=== PATIENT | female | born 1980 | race Caucasian/White ===

== ENCOUNTER 2024-10-03 10:23 | Outpatient (CLI) | payer BC, SELFPAY ==
--- NOTE | ~2024-10-03 | US_ITS ---
US breast RT limited 10/03/2024 11:08 Indication: Right breast nipple bleeding and pain. Open wound on nipple. Procedure: High-resolution Limited ultrasound of the right breast Comparison: No prior studies for comparison. Findings: Normal heterogeneous echotexture. There are mildly dilated ducts in the subareolar location . No discrete drainable fluid collection is identified to suggest abscess. Impression: 1: No abscess identified. Mildly dilated ducts, nonspecific. BI-RADS CATEGORY 2 - BENIGN FINDINGS Reviewed, dictated and finalized at location B. HEATER INSTALLER Impression: 1: No abscess identified. Mildly dilated ducts, nonspecific. BI-RADS CATEGORY 2 - BENIGN FINDINGS
== END 2024-10-03 10:24 | disposition home or self-care (01) ==
LOC: ANHIMG 10:29
PROVIDERS: PCP Physician Assistant Medical; Visit Provider Nurse Practitioner Obstetrics & Gynecology
DX: N60.41 Mammary duct ectasia of right breast (principal); N63.0 Unspecified lump in unspecified breast; L53.9 Erythematous condition, unspecified; N61.1 Abscess of the breast and nipple
CPT/HCPCS: 76642

== ENCOUNTER 2024-12-17 07:00 | Outpatient (NON) | payer BC, SELFPAY ==
--- OUTSIDE RECORDS SUMMARY | 2024-12-18 07:44 | XMS_ITS | Clinical Summary ---
Author Organization [facility] [address] Address [address] [place] [address] Care Team Providers Care Radiology Director Name Role Phone Douglas Flores MD Primary Care Provider [phone] Allergies No known active allergies Medications cetirizine (ZyrTEC) 10 mg tablet Take 10 mg by mouth daily Active buPROPion XL (WELLBUTRIN XL) 300 mg 24 hr tablet Take 300 mg by mouth daily Active fluticasone propionate (FLONASE) 50 mcg/actuation nasal spray Administer 1 spray into each nostril daily Active Active Problems Problem Noted Date Diagnosed Date Sensorineural hearing loss ( SNHL) of right ear with unrestricted hearing of left ear 09/09/2020 Surgical History Surgery Date Site/Laterality Comments KNEE SURGERY x 3 SECTION 08/29/2009 - 08/28/2010 CHOLECYSTECTOMY 08/29/2001 - 08/28/2002 HYSTERECTOMY 2010 Medical History Medical History Date Comments Sleep difficulties snoring HL (hearing loss) fluid in ears & discharge Family History Medical History Relation Name Comments Cancer Brother Cancer Maternal Grandfather Cancer Paternal Grandmother Relation Name Status Comments Brother Maternal Grandfather Paternal Grandmother Social History Tobacco Use Types Packs/Day Years Used Date Smoking Tobacco: Never Smokeless Tobacco: Never Alcohol Use Standard Drinks/Week Comments Not Currently 0 (1 standard drink = 0.6 oz pur e alcohol) Comments Unknown Sex and Gender Information Value Date Recorded Sex Assigned at Not on file Legal Sex Female 3:10 PM INTERNATIONAL TRADE MANAGER Gender Identity Not on file Sexual Orientation Not on file Obstetrics History Last Filed Vital Signs Vital Sign Reading Time Taken Comments Blood Pressure - - Pulse - - Temperature 36.6 C (97.8 F) 09/10/2020 8:27 AM INTERNATIONAL TRADE MANAGER Respiratory Rate - - Oxygen Saturation - - Inhaled Oxygen Concentration - - Weight 90.7 kg (200 lb) 09/10/2020 8:27 AM INTERNATIONAL TRADE MANAGER Height 167.6 cm (5' 6 ) 09/10/2020 8:27 AM INTERNATIONAL TRADE MANAGER Body Mass Index 32.28 09/10/2020 8:27 AM INTERNATIONAL TRADE MANAGER Plan of Treatment Not on file Insurance [facility] Care Teams Radiology Director Relationship Specialty Start Date End Date Douglas Flores MD [address] [place] [address] PCP - General Internal Medicine 09/02/20
--- OUTSIDE RECORDS SUMMARY | 2024-12-18 07:44 | XMS_ITS | Clinical Summary ---
Author Organization [facility] Address [address] [place] [address] Care Team Providers Care Monitor Car Operator Name Role Phone Stanislaw Sarmiento MD Primary Care Provider Unavailabl e Source Comments [facility],non-owned Affiliates and Associated Physician Practices is amultiple site organization consisting of ambulatory clinics and hospital sitesin [place], [place], [place] and [place]. This disclosure is being madepursuant to the Care Everywhere program and may not contain all information available regarding this patient. Last updated 18.[facility] Allergies No known active allergies Medications * Be aware that medications may not be up to date on this document. Alwaysverify current medications with the patient. ALPRAZolam (XANAX) 0.25 MG tabletIndicatio ns:Acute stress reaction Take 1 Tab by mouth 2 times daily as needed for Anxiety. 15 Tab 0 07/25/2012 Active neomycin-polymy mark-dexameth (MAXITROL) ophthalmic suspension Instill 1 Drop into both eyes 3 times daily. 5 mL 0 09/08/2012 Active citalopram (CELEXA) 40 MG tablet Take 1 Tab by mouth once daily. 40 Tab 6 05/28/2013 Active Active Problems Problem Noted Date Diagnosed Date Lumbar disc herniation with radiculopathy Depression Migraines Irritable bowel syndrome Allergic rhinitis, seasonal Social History Tobacco Use Types Packs/Day Years Used Date Smoking Tobacco: Never Smokeless Tobacco: Never Alcohol Use Standard Drinks/Week Comments Yes 0 (1 standard drink = 0.6 oz pur e alcohol) ocassionally Comments Unknown Sex and Gender Information Value Date Recorded Sex Assigned at Not on file Legal Sex Female 7:02 AM PBX INSPECTOR Gender Identity Not on file Sexual Orientation Not on file Last Filed Vital Signs Vital Sign Reading Time Taken Comments Blood Pressure 112/70 07/25/2012 11:48 AM PBX INSPECTOR Pulse 70 07/25/2012 11:48 AM PBX INSPECTOR Temperature - - Respiratory Rate 14 07/25/2012 11:48 AM PBX INSPECTOR Oxygen Saturation - - Inhaled Oxygen Concentration - - Weight 81.2 kg (179 lb) 07/25/2012 11:48 AM PBX INSPECTOR Height 167.6 cm (5' 6 ) 07/25/2012 11:48 AM PBX INSPECTOR Body Mass Index 28.89 07/25/2012 11:48 AM PBX INSPECTOR Plan of Treatment Health Maintenance Due Date Last Done Comments MAMMOGRAM 1981 HIV SCREENING 1996 HEPATITIS C SCREENING 05/15/1999 DTAP/TDAP/TD VACCINES (1 - Tdap) 2000 HEPATITIS B VACCINE (1 of 3 - 19+ 3-dose series) 2000 LIPID TESTING 09/15/2017 09/15/2012, 05/28/2009 COVID-19 VACCINE ( - 2023-2 5 season) 2024 DEPRESSION SCREENING 08/29/2024 INFLUENZA VACCINE (Season Ended) 2025 ZOSTER VACCINE (1 of 2) 2031 HIB VACCINE Aged Out No longer eligi ble based on patient's age to complete this topic HPV VACCINE Aged Out No longer eligi ble based on patient's age to complete this topic MENINGOCOCCAL (Group B) VACCINE SHARED DECISION-MAKING Aged Out No longer eligible based on patient's age to complete this topic MENINGOCOCCAL GROUPS A/C/Y/W VACCINE Aged Out No longer eligible b ased on patient's age to complete this topic PNEUMOCOCCAL VACCINE Aged Out No long er eligible based on patient's age to complete this topic Procedures Procedure Name Priority Date/Time Associated Diagnosis Comments LIPID PROFILE Routine 09/15/2012 8:51 AM PBX INSPECTOR Screening for lipoid disorders from Last 3 Months or Most Recently Relevant to Health Maintenance Results * LIPID PROFILE (09/15/2012 8:51 AM PBX INSPECTOR) Pathologist [facility] Cholesterol 161 125 - 200 mg/dL [facility] Comment: Test Performed at: [facility] [address] [place] [address] ROLANDO CLIFFORD DO,MPH HDL Cholesterol 62 > OR = 46 mg/dL [facility] Triglycerides 51 <150 mg/dL [facility] LDL Calculated 89 <130 mg/dL (calc) [facility] Comment: Desirable range <100 mg/dL for patients with CHD or diabetes and <70 mg/dL for diabetic patients with known heart disease. CHOL/HDLC RATIO 2.6 < OR = 5.0 (calc) [facility] Non HDL Cholesterol 99 mg/dL (calc) [facility] Comment: Target for non-HDL cholesterol is 30 mg/dL higher than LDL cholesterol target. Blood specimen (specimen) BLOOD SPECIMEN / Unknown 09/15/2012 8:51 AM PBX INSPECTOR 09/15/2012 8:51 AM PBX INSPECTOR Stanislaw Sarmiento MD LAB - CHEMISTRY ORDERABLES Final Result Performing Organization Address City/State/[facility] Co de Phone Number [facility] [address] [place] [address] from Last 3 Months or Most Recently Relevant to Health Maintenance Insurance Care Teams Monitor Car Operator Relationship Specialty Start Date End Date Stanislaw Sarmiento MD Updated address needed PCP - General 09/30/09
--- OUTSIDE RECORDS SUMMARY | 2024-12-18 07:44 | XMS_ITS | Clinical Summary ---
Author Organization [facility] Address [address] [place] [address] Phone Care Team Providers Care Camera Supervisor Name Role Phone Unavailable Primary Care Provider Unavailabl e Allergies No known active allergies Medications vit-iron fumarate-fa () 28-0.8 mg Oral Tab Take 1 Tab by mouth daily. Active cetirizine (ZYRTEC) 5 mg Oral tablet Take 5 mg by mouth daily. Active oxyCODONE-acetam inophen (PERCOCET) 5-325 mg Oral tablet Take 1 Tab by mouth every 4 hours as needed. 30 Tab 0 07/23/2010 Active ferrous sulfate (FEOSOL) 325 mg (65 mg Iron) Oral tablet Take 1 Tab by mouth 3 times daily. 90 Tab 2 07/23/2010 Active ibuprofen (MOTRIN) 600 mg Oral tablet Take 1 Tab by mouth every 6 hours as needed for Pain. 20 Tab 0 07/23/2010 Active Active Problems Problem Noted Date Diagnosed Date Protein calorie malnutrition 07/20/2010 Leukocytosis 07/20/2010 D.I.C. (disseminated intravascular coagulation) 07/19/2010 Hemorrhage after delivery of fetus 07/19/2010 Hypovolemia 07/19/2010 Chyst 07/1807/18/2010 Resolved Problems Problem Noted Date Diagnosed Date Resolved Date C section 07/18; PPH - 2uPRBC 07/18/2010 07/18/2010 MIL, pit, GBS neg 07/17/2010 07/18/2010 Immunizations Immunization Administration Dates Next Due (M-M-R II/PRIORIX)(12 MO UP) MEASLES, MUMPS AND RUBELLA VIRUS VACCINE, 0.5 ML IM/SUBCUT 07/19/2010,10/16/1999 Hepatitis B Vaccine 04/07/2001,08/27/2000,1999 Family History Relation Name Status Comments Father Alive Mother Alive Social History Tobacco Use Types Packs/Day Years Used Date Smoking Tobacco: Never Alcohol Use Standard Drinks/Week Comments No 0 (1 standard drink = 0.6 oz pur e alcohol) Comments Unknown Sex and Gender Information Value Date Recorded Sex Assigned at Not on file Legal Sex Female 5:57 AM CARPENTER GENERAL Gender Identity Not on file Sexual Orientation Not on file Last Filed Vital Signs Vital Sign Reading Time Taken Comments Blood Pressure 110/74 07/23/2010 12:00 PM CARPENTER GENERAL Pulse 74 07/23/2010 12:00 PM CARPENTER GENERAL Temperature 36.2 C (97.1 F) 07/23/2010 12:00 PM CARPENTER GENERAL Respiratory Rate 16 07/23/2010 12:00 PM CARPENTER GENERAL Oxygen Saturation 98% 07/23/2010 8:00 AM CARPENTER GENERAL Inhaled Oxygen Concentration - - Weight 96.2 kg (212 lb) 07/17/2010 10:10 PM CARPENTER GENERAL Height 167.6 cm (5' 6 ) 07/17/2010 10:10 PM CARPENTER GENERAL Body Mass Index 34.22 07/17/2010 10:10 PM CARPENTER GENERAL Plan of Treatment Health Maintenance Due Date Last Done Comments DTAP/TDAP/TD VACCINES (1 - Tdap) 2000 BREAST CANCER SCREENING 2021 INFLUENZA VACCINE (#1) 2024 HEPATITIS B VACCINES Completed 04/07/2001, 08/27/2000, 10/16/1999 HPV VACCINES Aged Out No longer eligi ble based on patient's age to complete this topic Insurance [place]ICAID [place] Advance Directives For more information, please contact: [phone] * Full Code (Latest Code Status on File) Date Activated Date Inactivated Comments 07/19/2010 7:49 AM 07/23/2010 4:25 PM * Full Code Date Activated Date Inactivated Comments 07/19/2010 7:49 AM 07/19/2010 7:49 AM * Full Code Date Activated Date Inactivated Comments 07/18/2010 6:20 PM 07/19/2010 7:49 AM * Full Code Date Activated Date Inactivated Comments 07/17/2010 10:49 PM 07/18/2010 6:20 PM
--- OUTSIDE RECORDS SUMMARY | 2024-12-18 07:44 | XMS_ITS | Referral Summary ---
Author Organization [facility] [address] Address [address] [place] [address] Care Team Providers Care Director Of Sales Name Role Phone Douglas Flores MD Primary Care Provider [phone] Allergies No known active allergies Medications cetirizine [...] with unrestricted hearing of left ear 09/09/2020 Social History Tobacco Use Types Packs/Day Years Used Date Smoking Tobacco: Never Smokeless Tobacco: Never Alcohol Use Standard Drinks/Week Comments Not Currently 0 (1 standard drink = 0.6 oz pur e alcohol) Comments Unknown Sex and Gender Information Value Date Recorded Sex Assigned at Not on file Legal Sex Female 3:10 PM SUPERVISOR PATCHING Gender Identity Not on file Sexual Orientation Not on file Last Filed Vital Signs Vital Sign Reading Time Taken Comments Blood Pressure - - Pulse - - Temperature 36.6 C (97.8 F) 09/10/2020 8:27 AM SUPERVISOR PATCHING Respiratory Rate - - Oxygen Saturation - - Inhaled Oxygen Concentration - - Weight 90.7 kg (200 lb) 09/10/2020 8:27 AM SUPERVISOR PATCHING Height 167.6 cm (5' 6 ) 09/10/2020 8:27 AM SUPERVISOR PATCHING Body Mass Index 32.28 09/10/2020 8:27 AM SUPERVISOR PATCHING Plan of Treatment Not on file Insurance [facility] Care Teams Director Of Sales Relationship Specialty Start Date End Date Douglas Flores MD [address] [place] [address] PCP - General Internal Medicine 09/02/20
--- OUTSIDE RECORDS SUMMARY | 2024-12-18 07:44 | XMS_ITS | Clinical Summary ---
Author Organization [facility] Address [address] [place] [address] Care Team Providers Care Lube Worker Name Role Phone Rosalva Domingo Primary Care Provider [phone] Allergies No known active allergies Medications St Sorensen Wort 300 MG Cap Take 1 capsule by mouth 3 (three) times daily. Active cetirizine 10 MG tablet Take 10 mg by mouth daily. Active oxyCODONE-aceta minophen 10-325 MG tablet TK 1-2 TS PO Q 6 H PRN 0 01/17/2019 Active Active Problems Problem Noted Date Diagnosed Date Allergic rhinitis, seasonal 12/25/2018 Depression 12/25/2018 Irritable bowel syndrome 12/25/2018 Lumbar disc herniation with radiculopathy 2018 Migraines 12/25/2018 Family History Medical History Relation Comments Prostate Cancer Brother Colon Cancer Maternal Grandfather BRCA2 Positive Mother Uterine Cancer Paternal Grandmother Breast Cancer Neg Hx Relation Status Comments Brother Alive Maternal Grandfather Mother Paternal Grandmother Social History Tobacco Use Types Packs/Day Years Used Date Smoking Tobacco: Never Smokeless Tobacco: Never Alcohol Use Standard Drinks/Week Comments Yes 0 (1 standard drink = 0.6 oz pur e alcohol) social AUDIT-C Answer Date Recorded Frequency of Alcohol Consumption Monthly or less 12/25/2018 Average Number of Drinks 1 or 2 019 Frequency of Binge Drinking Never 11/28 Comments Unknown Sex and Gender Information Value Date Recorded Sex Assigned at Female 12/25/2018 4:21 PM CDT Legal Sex Female 5:06 PM CDT Gender Identity Female 12/25/2018 4:21 PM CDT Sexual Orientation Straight 12/25/2018 4: 21 PM CDT Last Filed Vital Signs Vital Sign Reading Time Taken Comments Blood Pressure 120/64 03/23/2019 10:41 AM CDT Pulse - - Temperature - - Respiratory Rate - - Oxygen Saturation - - Inhaled Oxygen Concentration - - Weight 93.4 kg (206 lb) 03/23/2019 10:41 AM CDT Height 167.4 cm (5' 5.9 ) 03/23/2019 10:41 AM CD T Body Mass Index 33.35 03/23/2019 10:41 AM CDT Plan of Treatment Health Maintenance Due Date Last Done Comments Annual Physical 1984 Hepatitis C 1999 DTaP, Tdap and Td Vaccines (1 - Tdap) 2000 COVID-19 Vaccine ( season) 2024 Mammogram Screening 04/10/2026 04/10/2024, 03/30/2023, 02/22/2023, Additional history exists Hepatitis B Vaccines Completed 04/07/2001, 08/27/2000, 10/16/1999 HPV Vaccines Aged Out No longer eligi ble based on patient's age to complete this topic Meningococcal B Vaccine Aged Out No l onger eligible based on patient's age to complete this topic Meningococcal Vaccine Aged Out No michelle rosita eligible based on patient's age to complete this topic Pneumococcal Vaccine: Pediatrics (0 to 5 Years) and At-Risk Patients (6 to 49 Years) Aged Out No longer eligible based on patient's age to complete this topic RSV Immunizations Under 20 Months Aged Out No longer eligible based on patient's age to complete this topic Procedures Procedure Name Priority Date/Time Associated Diagnosis Comments MG SCREENING W VERO RENEE DIGI Routine 04/10/2024 1:53 PM CDT Encounter for screening mammogram for malignant neoplasm of breast from Last 3 Months or Most Recently Relevant to Health Maintenance Results * MG SCREENING W VERO RENEE DIGI (04/10/2024 1:53 PM CDT) Anatomical Region Laterality Modality Breast Bilateral Mammography 04/10/2024 5:55 PM CDT Impressions 04/11/2024 7:22 AM CDT ===== IMPRESSION: ===== 1. Stable mammographic appearance with no new findings to suggest malignancy in either breast. Assessment: ACR BI-RADS 2 - BENIGN FINDING(S) Recommendation: 1:Routine Screening Bilateral Comments: Ordered By: JAYJAY MARINA Interpreted By: Adamaris Merrill, 04/10/2024 5:55 PM Narrative 04/11/2024 7:22 AM CDT EXAMINATION: Digital bilateral screening mammogram with 3-D tomosynthesis EXAM DATE/TIME: 04/10/2024 1:22 PM REASON FOR EXAM: Routine screening Mother is BRCA2 positive COMPARISON: 11/19/2021.. 02/22/2023 Technique: Digital screening mammography of both breasts was performed in addition to 3-D Tomosynthesis technique. This study was read with the assistance of a computer-aided detection system. Tissue density: The breast tissue is heterogeneously dense, which may obscure small masses. Findings: There is no new focal asymmetry, dominant mass lesion, area of skin thickening, or cluster of suspicious appearing calcifications in either breast to suggest malignancy. Jayjay Marina MD MAMMO Final Result from Last 3 Months or Most Recently Relevant to Health Maintenance Insurance Care Teams Lube Worker Relationship Specialty Start Date End Date Rosalva Domingo PA [address] [place] [address] PCP - General PHYSICIAN MANAGER OF [facility]IED HE[facility] 02/22/23
== END 2024-12-17 07:01 | disposition home or self-care (01) ==
LOC: ANHLAB 12-18 07:42
PROVIDERS: Visit Provider Surgery
DX: C50.011 Malignant neoplasm of nipple and areola, right female breast (principal); N64.9 Disorder of breast, unspecified; N61.1 Abscess of the breast and nipple; N63.0 Unspecified lump in unspecified breast
CPT/HCPCS: 88305; 88342; 88360

== ENCOUNTER 2024-12-20 14:06 | Outpatient (CLI) | payer BC, SELFPAY ==
--- NOTE | ~2024-12-20 | MMUS_ITS ---
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 TECHNIQUE: Additional 3-D tomosynthesis images of the breasts were performed and synthetic 2-D images were generated. CAD analysis was submitted and interpreted. High resolution bilateral complete breas t ultrasound was performed. COMPARISON: Comparison to multiple prior studies sequentially, with oldest reviewed study dated 09/2022. BREAST PARENCHYMAL COMPOSITION: Dense: The breasts are extremely dense, which lowers the sensitivity of mammography. FINDINGS: MAMMOGRAPHIC FINDINGS: There are dilated right subareolar ducts. There are multiple scattered right breast calcifications in addition, there is a cluster of pleomorphic calcifications in the lower central aspect of the right breast, anterior third. The left breast is stable. No suspicious masses, calcifications or architectu ral distortion to suggest malignancy. ULTRASOUND: Complete bilateral breast ultrasound including all 4 quadrants of both breast in the subareolar locat ions: Right breast: There are multiple cysts of the right breast. There are prominent ducts of the subareol ar location the right breast. At 6:00, 2 cm from the nipple there is an antiparallel irregular shaped hypoechoic 6 mm mass measuring 6 x 5 x 4 mm. Left breast: Normal heterogeneous echotexture without focal solid or cystic mass. IMPRESSION: 1. Suspicious 6 mm right breast mass at 6:00, 2 cm from the nipple. Suspicious cluster right breast c alcifications in the lower central right breast, anterior third. 2. Ultrasound-guided biopsy of right breast mass at 6:00, 2 cm from the nipple recommended. Stereotac tic right breast biopsy for clustered calcifications are recommended. BI-RADS category 4, suspicious findings. Reviewed, dictated and finalized at location A. IMPRESSION: 1. Suspicious 6 mm right breast mass at 6:00, 2 cm from the nipple. Suspicious cluster right breast calcifications in the lower central right breast, anterior third. 2. Ultrasound-guided biopsy of right breast mass at 6:00, 2 cm from the nipple recommended. Stereotactic right breast biopsy for clustered calcifications are recommended. BI-RADS category 4, suspicious findings.
--- OUTSIDE RECORDS SUMMARY | 2024-12-20 15:15 | XMS_ITS | Referral Summary ---
Author Organization [facility] [address] Address [address] [place] [address] Care Team Providers Care Manufacturing Process Engineer Name Role Phone Douglas Flores MD Primary Care Provider [phone] Allergies No known active allergies Medications cetirizine [...] on file Legal Sex Female 3:10 PM DIGESTION OPERATOR Gender Identity Not on file Sexual Orientation Not on file Last Filed Vital Signs Vital Sign Reading Time Taken Comments Blood Pressure - - Pulse - - Temperature 36.6 C (97.8 F) 09/10/2020 8:27 AM DIGESTION OPERATOR Respiratory Rate - - Oxygen Saturation - - Inhaled Oxygen Concentration - - Weight 90.7 kg (200 lb) 09/10/2020 8:27 AM DIGESTION OPERATOR Height 167.6 cm (5' 6 ) 09/10/2020 8:27 AM DIGESTION OPERATOR Body Mass Index 32.28 09/10/2020 8:27 AM DIGESTION OPERATOR Plan of Treatment Not on file Insurance [facility] Care Teams Manufacturing Process Engineer Relationship Specialty Start Date End Date Douglas Flores MD [address] [place] [address] PCP - General Internal Medicine 09/02/20
--- OUTSIDE RECORDS SUMMARY | 2024-12-20 15:15 | XMS_ITS | Clinical Summary ---
Author Organization [facility] Address [address] [place] [address] Phone Care Team Providers Care Coastal/Harbor Defense Officer Name Role Phone Unavailable Primary Care Provider [...] on file Legal Sex Female 5:57 AM FORENSIC SPECIALIST Gender Identity Not on file Sexual Orientation Not on file Last Filed Vital Signs Vital Sign Reading Time Taken Comments Blood Pressure 110/74 07/23/2010 12:00 PM FORENSIC SPECIALIST Pulse 74 07/23/2010 12:00 PM FORENSIC SPECIALIST Temperature 36.2 C (97.1 F) 07/23/2010 12:00 PM FORENSIC SPECIALIST Respiratory Rate 16 07/23/2010 12:00 PM FORENSIC SPECIALIST Oxygen Saturation 98% 07/23/2010 8:00 AM FORENSIC SPECIALIST Inhaled Oxygen Concentration - - Weight 96.2 kg (212 lb) 07/17/2010 10:10 PM FORENSIC SPECIALIST Height 167.6 cm (5' 6 ) 07/17/2010 10:10 PM FORENSIC SPECIALIST Body Mass Index 34.22 07/17/2010 10:10 PM FORENSIC SPECIALIST Plan of Treatment Health Maintenance Due Date Last Done Comments DTAP/TDAP/TD VACCINES (1 - Tdap) 2000 BREAST CANCER SCREENING 2021 INFLUENZA VACCINE (#1) 2024 HEPATITIS B VACCINES Completed 04/07/2001, 08/27/2000, 10/16/1999 HPV VACCINES Aged Out No longer eligi ble based on patient's age to complete this topic Insurance MEDICAID [place] Advance Directives For more information, please contact: [phone] * Full Code (Latest Code Status on [...]
--- OUTSIDE RECORDS SUMMARY | 2024-12-20 15:15 | XMS_ITS | Clinical Summary ---
Author Organization [facility] Address [address] [place] [address] Care Team Providers Care Newborn Photographer Name Role Phone Rosalva Domingo Primary Care Provider [phone] Allergies No known active allergies Medications St [...] Relevant to Health Maintenance Insurance Care Teams Newborn Photographer Relationship Specialty Start Date End Date Rosalva Domingo PA [address] [place] [address] PCP - General PHYSICIAN ECONOMIC SPECIALIST 02/22/23
--- OUTSIDE RECORDS SUMMARY | 2024-12-20 15:15 | XMS_ITS | Clinical Summary ---
Author Organization [facility] [address] Address [address] [place] [address] Care Team Providers Care Soaking Room Operator Name Role Phone Douglas Flores MD Primary Care Provider [phone] Allergies No known active allergies Medications cetirizine [...] on file Legal Sex Female 3:10 PM CONFECTIONERY MAKER Gender Identity Not on file Sexual Orientation Not on file Obstetrics History Last Filed Vital Signs Vital Sign Reading Time Taken Comments Blood Pressure - - Pulse - - Temperature 36.6 C (97.8 F) 09/10/2020 8:27 AM CONFECTIONERY MAKER Respiratory Rate - - Oxygen Saturation - - Inhaled Oxygen Concentration - - Weight 90.7 kg (200 lb) 09/10/2020 8:27 AM CONFECTIONERY MAKER Height 167.6 cm (5' 6 ) 09/10/2020 8:27 AM CONFECTIONERY MAKER Body Mass Index 32.28 09/10/2020 8:27 AM CONFECTIONERY MAKER Plan of Treatment Not on file Insurance [facility] Care Teams Soaking Room Operator Relationship Specialty Start Date End Date Douglas Flores MD [address] [place] [address] PCP - General Internal Medicine 09/02/20
--- OUTSIDE RECORDS SUMMARY | 2024-12-20 15:15 | XMS_ITS | Clinical Summary ---
Author Organization [facility] Address [address] [place] [address] Care Team Providers Care Oracle Erp Architect Name Role Phone Stanislaw Sarmiento MD Primary Care Provider Unavailabl e Source Comments [facility],non-owned Affiliates and Associated Physician Practices is amultiple site organization consisting of ambulatory clinics and hospital sitesin [place], [place], [place] and [place]. This disclosure is being madepursuant to the Care Everywhere program and may not contain all information available regarding this patient. Last updated 18.[facility] Allergies No known active allergies Medications * [...] on file Legal Sex Female 7:02 AM HOUSING INSTALLER Gender Identity Not on file Sexual Orientation Not on file Last Filed Vital Signs Vital Sign Reading Time Taken Comments Blood Pressure 112/70 07/25/2012 11:48 AM HOUSING INSTALLER Pulse 70 07/25/2012 11:48 AM HOUSING INSTALLER Temperature - - Respiratory Rate 14 07/25/2012 11:48 AM HOUSING INSTALLER Oxygen Saturation - - Inhaled Oxygen Concentration - - Weight 81.2 kg (179 lb) 07/25/2012 11:48 AM HOUSING INSTALLER Height 167.6 cm (5' 6 ) 07/25/2012 11:48 AM HOUSING INSTALLER Body Mass Index 28.89 07/25/2012 11:48 AM HOUSING INSTALLER Plan of Treatment Health Maintenance Due Date [...] Comments LIPID PROFILE Routine 09/15/2012 8:51 AM HOUSING INSTALLER Screening for lipoid disorders from Last 3 Months or Most Recently Relevant to Health Maintenance Results * LIPID PROFILE (09/15/2012 8:51 AM HOUSING INSTALLER) Pathologist [facility] Cholesterol 161 125 - 200 mg/dL [facility] Comment: Test Performed at: [facility] [address] [place] [address] ROLANDO CLIFFORD DO,MPH HDL Cholesterol 62 > [...] BLOOD SPECIMEN / Unknown 09/15/2012 8:51 AM HOUSING INSTALLER 09/15/2012 8:51 AM HOUSING INSTALLER Stanislaw Sarmiento MD LAB - CHEMISTRY ORDERABLES Final Result Performing Organization Address City/State/[facility] Co de Phone Number [facility] [address] [place] [address] from Last 3 Months or Most Recently Relevant to Health Maintenance Insurance Care Teams Oracle Erp Architect Relationship Specialty Start Date End Date Stanislaw Sarmiento MD Updated address needed PCP - General 09/30/09
== END 2024-12-20 14:07 | disposition home or self-care (01) ==
PROVIDERS: Visit Provider Surgery
DX: C50.011 Malignant neoplasm of nipple and areola, right female breast (principal); N61.1 Abscess of the breast and nipple
CPT/HCPCS: 76641; 77062; 77066; G0279

== ENCOUNTER 2025-01-04 08:37 | Outpatient (CLI) | payer BC, SELFPAY ==
--- OUTSIDE RECORDS SUMMARY | 2024-12-29 14:14 | XMS_ITS | Clinical Summary ---
Author Organization [facility] [address] Address [address] [place] [address] Care Team Providers Care Owner Oral Surgeon Name Role Phone Douglas Flores MD Primary Care Provider [phone] Allergies No known active allergies Medications cetirizine [...] on file Legal Sex Female 3:10 PM RUBBISH COLLECTION SUPERVISOR Gender Identity Not on file Sexual Orientation Not on file Obstetrics History Last Filed Vital Signs Vital Sign Reading Time Taken Comments Blood Pressure - - Pulse - - Temperature 36.6 C (97.8 F) 09/10/2020 8:27 AM RUBBISH COLLECTION SUPERVISOR Respiratory Rate - - Oxygen Saturation - - Inhaled Oxygen Concentration - - Weight 90.7 kg (200 lb) 09/10/2020 8:27 AM RUBBISH COLLECTION SUPERVISOR Height 167.6 cm (5' 6 ) 09/10/2020 8:27 AM RUBBISH COLLECTION SUPERVISOR Body Mass Index 32.28 09/10/2020 8:27 AM RUBBISH COLLECTION SUPERVISOR Plan of Treatment Not on file Insurance BLUE [facility] BL CHOICE [place]F PPO [place] Care Teams Owner Oral Surgeon Relationship Specialty Start Date End Date Douglas Flores MD [address] [place] [address] PCP - General Internal Medicine 09/02/20
--- OUTSIDE RECORDS SUMMARY | 2024-12-29 14:14 | XMS_ITS | Clinical Summary ---
Author Organization [facility] Address [address] [place] [address] Phone Care Team Providers Care Bottom Cager Name Role Phone Unavailable Primary Care Provider [...] on file Legal Sex Female 5:57 AM FUSING MACHINE TENDER Gender Identity Not on file Sexual Orientation Not on file Last Filed Vital Signs Vital Sign Reading Time Taken Comments Blood Pressure 110/74 07/23/2010 12:00 PM FUSING MACHINE TENDER Pulse 74 07/23/2010 12:00 PM FUSING MACHINE TENDER Temperature 36.2 C (97.1 F) 07/23/2010 12:00 PM FUSING MACHINE TENDER Respiratory Rate 16 07/23/2010 12:00 PM FUSING MACHINE TENDER Oxygen Saturation 98% 07/23/2010 8:00 AM FUSING MACHINE TENDER Inhaled Oxygen Concentration - - Weight 96.2 kg (212 lb) 07/17/2010 10:10 PM FUSING MACHINE TENDER Height 167.6 cm (5' 6 ) 07/17/2010 10:10 PM FUSING MACHINE TENDER Body Mass Index 34.22 07/17/2010 10:10 PM FUSING MACHINE TENDER Plan of Treatment Upcoming Encounters Date Type Department Care Team (Late st Contact Info) Description 01/16/2025 3:00 PM CDT Office Visit [facility]3] Oncology and Hematology - [place] [address] [place] [address] [facility] [address] [place] [address] [place] [address] [place] [address] [address] [place] [address] Health Maintenance Due Date Last Done Comments DTAP/TDAP/TD VACCINES (1 - Tdap) 2000 BREAST CANCER SCREENING 2021 INFLUENZA VACCINE (#1) 2024 HEPATITIS B VACCINES Completed 04/07/2001, 08/27/2000, 10/16/1999 HPV VACCINES Aged Out No longer eligi ble based on patient's age to complete this topic Insurance [facility] [id number] [place]ID [place] Advance Directives For more information, please contact: [phone] * Full Code (Latest Code Status on [...]
--- OUTSIDE RECORDS SUMMARY | 2024-12-29 14:14 | XMS_ITS | Referral Summary ---
Author Organization [facility] [address] [employer] Address [address] [place] [address] Care Team Providers Care Armored Car Messenger Name Role Phone Douglas Flores MD Primary Care Provider [phone] Allergies No known active allergies Medications cetirizine [...] on file Legal Sex Female 3:10 PM SOFTWARE MAINTENANCE ENGINEER Gender Identity Not on file Sexual Orientation Not on file Last Filed Vital Signs Vital Sign Reading Time Taken Comments Blood Pressure - - Pulse - - Temperature 36.6 C (97.8 F) 09/10/2020 8:27 AM SOFTWARE MAINTENANCE ENGINEER Respiratory Rate - - Oxygen Saturation - - Inhaled Oxygen Concentration - - Weight 90.7 kg (200 lb) 09/10/2020 8:27 AM SOFTWARE MAINTENANCE ENGINEER Height 167.6 cm (5' 6 ) 09/10/2020 8:27 AM SOFTWARE MAINTENANCE ENGINEER Body Mass Index 32.28 09/10/2020 8:27 AM SOFTWARE MAINTENANCE ENGINEER Plan of Treatment Not on file Insurance [place] [employer] [place] Care Teams Armored Car Messenger Relationship Specialty Start Date End Date Douglas Flores MD [address] [place] [address] PCP - General Internal Medicine 09/02/20
--- OUTSIDE RECORDS SUMMARY | 2024-12-29 14:14 | XMS_ITS | Clinical Summary ---
Author Organization [facility] Address [address] [place] [address] Care Team Providers Care Auto Suspension And Steering Mechanic Name Role Phone Stanislaw Sarmiento MD Primary Care Provider Unavailabl e Source Comments [facility],non-owned Affiliates and Associated Physician Practices is amultiple site organization consisting of ambulatory clinics and hospital sitesin [place], [place], [place] and [place]. This disclosure is being madepursuant to the Care Everywhere program and may not contain all information available regarding this patient. Last updated 18.[facility] Allergies No known active allergies Medications * [...] on file Legal Sex Female 7:02 AM CLIENT DEVELOPMENT CONSULTANT Gender Identity Not on file Sexual Orientation Not on file Last Filed Vital Signs Vital Sign Reading Time Taken Comments Blood Pressure 112/70 07/25/2012 11:48 AM CLIENT DEVELOPMENT CONSULTANT Pulse 70 07/25/2012 11:48 AM CLIENT DEVELOPMENT CONSULTANT Temperature - - Respiratory Rate 14 07/25/2012 11:48 AM CLIENT DEVELOPMENT CONSULTANT Oxygen Saturation - - Inhaled Oxygen Concentration - - Weight 81.2 kg (179 lb) 07/25/2012 11:48 AM CLIENT DEVELOPMENT CONSULTANT Height 167.6 cm (5' 6 ) 07/25/2012 11:48 AM CLIENT DEVELOPMENT CONSULTANT Body Mass Index 28.89 07/25/2012 11:48 AM CLIENT DEVELOPMENT CONSULTANT Plan of Treatment Health Maintenance Due Date Last Done Comments MAMMOGRAM 1981 PAP SMEAR 1981 HIV SCREENING 1996 HEPATITIS C SCREENING [...] Comments LIPID PROFILE Routine 09/15/2012 8:51 AM CLIENT DEVELOPMENT CONSULTANT Screening for lipoid disorders from Last 3 Months or Most Recently Relevant to Health Maintenance Results * LIPID PROFILE (09/15/2012 8:51 AM CLIENT DEVELOPMENT CONSULTANT) Cholesterol 161 125 - 200 mg/dL [facility] Comment: Test Performed at: [employer] [facility] [address] [place] [address] ROLANDO CLIFFORD DO,MPH HDL Cholesterol 62 > [...] BLOOD SPECIMEN / Unknown 09/15/2012 8:51 AM CLIENT DEVELOPMENT CONSULTANT 09/15/2012 8:51 AM CLIENT DEVELOPMENT CONSULTANT us Stanislaw Sarmiento MD LAB - CHEMISTRY ORDERABLES Final Result Performing Organization Address City/State/[facility] Co de Phone Number [facility] [[email or web address]] [address] [place] [address] from Last 3 Months or Most Recently Relevant to Health Maintenance Insurance [facility] SELF PAY NO INSURANCE Member Subscriber Plan / Payer (Ef fective for All Dates) Name:Gisele Chandler Member ID:Not on file Relation to Subscriber:Not on file Name:GISELE CHANDLER Subscriber ID:Not on file (Home) Address: [address] [place] [address] Payer ID:Not on file Group ID:Not on file Type:Self Pay Address: [place], [place] Care Teams Auto Suspension And Steering Mechanic Relationship Specialty Start Date End Date Stanislaw Sarmiento MD Updated address needed PCP - General 09/30/09
--- OUTSIDE RECORDS SUMMARY | 2024-12-29 14:14 | XMS_ITS | Clinical Summary ---
Author Organization [facility] Address [address] [place] [address] Care Team Providers Care Personal Development Coach Name Role Phone Rosalva Domingo Primary Care Provider [phone] Allergies No known active allergies Medications St [...] Relevant to Health Maintenance Insurance Care Teams Personal Development Coach Relationship Specialty Start Date End Date Rosalva Domingo PA [address] [place] [id number] PCP - General PHYSICIAN HEALTH EDUCATION ASSISTANT 02/22/23
--- NOTE | ~2025-01-04 | MR_ITS ---
MR breast BI wo/w con 01/04/2025 10:51 CDT INDICATION: Known right breast cancer. TECHNIQUE: MRI of the breasts perform using standard protocol pre-and post IV contrast with the follo wing sequences: Axial T2 STIR, axial T1, axial vibrant T1 with fat suppression precontrast and multip hasic postcontrast. 18 cc MultiHance administered intravenously. COMPARISON: Comparison to multiple prior studies sequentially, with oldest reviewed study dated 09/2022. FINDINGS: Precontrast sequences demonstrate pathologic right axillary lymph nodes clustered together. There is mild background parenchymal enhancement. Postcontrast sequences demonstrate an irregular sh aped mass in the lower inner quadrant of the right breast measuring 2.1 x 1.3 x 0.87 cm with rapid wa shout enhancement which is heterogeneous. There is a small area of rapid washout enhancement in the l ower central aspect of the right breast near the dominant mass measuring 1.6 x 1.7 x 0.6 cm with irre gular margins and heterogeneous internal enhancement. There is a conglomeration of lymph nodes in the right axilla measuring 4.9 x 3 x 1.8 cm with pathologic appearance and loss of normal fatty hilum, c onsistent with metastatic disease. LEFT BREAST: No signal abnormalities on precontrast sequences. There is mild background parenchymal enhancement. No enhancing lesions following contrast administration. No areas of enhancement meeti ng threshold criteria on CAD analysis. No evidence of signal abnormalities in the axillary or inter nal mammary node distributions. IMPRESSION: 1: Right breast: Multiple irregular shaped masses involving the lower inner and lower central aspect of the right breast both with abnormal heterogeneous rapid washout enhancement, consistent with mult ifocal breast cancer with metastatic disease to right axillary lymph nodes. BI-RADS category 6- Known biopsy proven malignancy: Appropriate action should be taken. 2: Left breast: Negative. No evidence of malignancy. BI-RADS category 1. Recommend annual mammogr aphy follow-up. Reviewed, dictated and finalized at location A. IMPRESSION: 1: Right breast: Multiple irregular shaped masses involving the lower inner an d lower central aspect of the right breast both with abnormal heterogeneous rap id washout enhancement, consistent with multifocal breast cancer with metastati c disease to right axillary lymph nodes. BI-RADS category 6- Known biopsy prove n malignancy: Appropriate action should be taken. 2: Left breast: Negative. No evidence of malignancy. BI-RADS category 1. Re commend annual mammography follow-up.
--- OUTSIDE RECORDS SUMMARY | 2025-01-04 08:42 | XMS_ITS | Clinical Summary ---
Author Organization [facility] Address [address] [place] [address] Phone Care Team Providers Care Stonemason Supervisor Name Role Phone Unavailable Primary Care [...] on file Legal Sex Female 5:57 AM TAX DIRECTOR Gender Identity Not on file Sexual Orientation Not on file Last Filed Vital Signs Vital Sign Reading Time Taken Comments Blood Pressure 110/74 07/23/2010 12:00 PM TAX DIRECTOR Pulse 74 07/23/2010 12:00 PM TAX DIRECTOR Temperature 36.2 C (97.1 F) 07/23/2010 12:00 PM TAX DIRECTOR Respiratory Rate 16 07/23/2010 12:00 PM TAX DIRECTOR Oxygen Saturation 98% 07/23/2010 8:00 AM TAX DIRECTOR Inhaled Oxygen Concentration - - Weight 96.2 kg (212 lb) 07/17/2010 10:10 PM TAX DIRECTOR Height 167.6 cm (5' 6 ) 07/17/2010 10:10 PM TAX DIRECTOR Body Mass Index 34.22 07/17/2010 10:10 PM TAX DIRECTOR Plan of Treatment Upcoming Encounters Date Type Department Care Team (Late st Contact Info) Description 01/16/2025 3:00 PM CDT Office Visit [facility] Oncology and Hematology - [place] [address] [place] [address] [facility] [address] [place] [address] [place] [address] [place] [address] [address] [place] [address] Health Maintenance Due Date Last Done Comments DTAP/TDAP/TD VACCINES (1 - Tdap) 2000 BREAST CANCER SCREENING 2021 INFLUENZA VACCINE (#1) 2024 HEPATITIS B VACCINES Completed 04/07/2001, 08/27/2000, 10/16/1999 HPV VACCINES Aged Out No longer eligi ble based on patient's age to complete this topic Insurance [facility] [id number] [place]ID [place] Advance Directives For more information, please contact: [phone] * Full Code (Latest Code Status on [...]
--- OUTSIDE RECORDS SUMMARY | 2025-01-04 08:42 | XMS_ITS | Clinical Summary ---
Author Organization [facility] Address [address] [place] [address] Care Team Providers Care Scada Engineer Name Role Phone Stanislaw Sarmiento MD Primary Care Provider Unavailabl e Source Comments [facility],non-owned Affiliates and Associated Physician Practices is amultiple site organization consisting of ambulatory clinics and hospital sitesin [place], [place]. This disclosure is being madepursuant to the Care Everywhere program and may not contain all information available regarding this patient. Last updated 18.[facility] Allergies No known active allergies Medications * [...] on file Legal Sex Female 7:02 AM INVESTIGATION SPECIALIST Gender Identity Not on file Sexual Orientation Not on file Last Filed Vital Signs Vital Sign Reading Time Taken Comments Blood Pressure 112/70 07/25/2012 11:48 AM INVESTIGATION SPECIALIST Pulse 70 07/25/2012 11:48 AM INVESTIGATION SPECIALIST Temperature - - Respiratory Rate 14 07/25/2012 11:48 AM INVESTIGATION SPECIALIST Oxygen Saturation - - Inhaled Oxygen Concentration - - Weight 81.2 kg (179 lb) 07/25/2012 11:48 AM INVESTIGATION SPECIALIST Height 167.6 cm (5' 6 ) 07/25/2012 11:48 AM INVESTIGATION SPECIALIST Body Mass Index 28.89 07/25/2012 11:48 AM INVESTIGATION SPECIALIST Plan of Treatment Health Maintenance Due Date Last Done Comments MAMMOGRAM 1981 PAP SMEAR 1981 HIV SCREENING 1996 HEPATITIS C SCREENING 05/15/1999 DTAP/TDAP/TD VACCINES (1 - Tdap) 2000 HEPATITIS B VACCINE (1 of 3 - 19+ 3-dose series) 2000 LIPID TESTING 09/15/2017 09/15/2012, 05/28/2009 COVID-19 VACCINE (1 - 2023-2 5 season) 2024 DEPRESSION SCREENING [...] Comments LIPID PROFILE Routine 09/15/2012 8:51 AM INVESTIGATION SPECIALIST Screening for lipoid disorders from Last 3 Months or Most Recently Relevant to Health Maintenance Results * LIPID PROFILE (09/15/2012 8:51 AM INVESTIGATION SPECIALIST) Cholesterol 161 125 - 200 mg/dL [facility] Comment: Test Performed at: [facility] [address] [place] [address] ROLANDO CLIFFORD DO,MPH HDL Cholesterol 62 > [...] BLOOD SPECIMEN / Unknown 09/15/2012 8:51 AM INVESTIGATION SPECIALIST 09/15/2012 8:51 AM INVESTIGATION SPECIALIST Stanislaw Sarmiento MD LAB - CHEMISTRY ORDERABLES Final Result [id number] [place] [address] from Last 3 Months or Most Recently Relevant to Health Maintenance Insurance [facility] SELF PAY NO INSURANCE Member Subscriber Plan / Payer (Ef fective for All Dates) Name:Gisele Chandler Member ID:Not on file Relation to Subscriber:Not on file Name:GISELE CHANDLER Subscriber ID:Not on file (Home) Address: [address] [place] [address] Payer ID:Not on file Group ID:Not on file Type:Self Pay Address: [facility] Care Teams Scada Engineer Relationship Specialty Start Date End Date Stanislaw Sarmiento MD Updated address needed PCP - General 09/30/09
--- OUTSIDE RECORDS SUMMARY | 2025-01-04 08:42 | XMS_ITS | Clinical Summary ---
Author Organization [facility] Address [address] [place] [address] Care Team Providers Care Community Health Director Name Role Phone Rosalva Domingo Primary Care Provider [phone] Allergies No known active allergies Medications St [...] Relevant to Health Maintenance Insurance Care Teams Community Health Director Relationship Specialty Start Date End Date Rosalva Domingo PA [address] [place] [id number] PCP - General PHYSICIAN DETECTIVE CHIEF 02/22/23
--- OUTSIDE RECORDS SUMMARY | 2025-01-04 08:42 | XMS_ITS | Clinical Summary ---
Author Organization [facility] [address] [employer] Address [address] [place] [address] Care Team Providers Care Bull Fiddle Player Name Role Phone Douglas Flores MD Primary Care Provider [phone] Allergies No known active allergies Medications cetirizine [...] on file Legal Sex Female 3:10 PM BODY MAN Gender Identity Not on file Sexual Orientation Not on file Obstetrics History Last Filed Vital Signs Vital Sign Reading Time Taken Comments Blood Pressure - - Pulse - - Temperature 36.6 C (97.8 F) 09/10/2020 8:27 AM BODY MAN Respiratory Rate - - Oxygen Saturation - - Inhaled Oxygen Concentration - - Weight 90.7 kg (200 lb) 09/10/2020 8:27 AM BODY MAN Height 167.6 cm (5' 6 ) 09/10/2020 8:27 AM BODY MAN Body Mass Index 32.28 09/10/2020 8:27 AM BODY MAN Plan of Treatment Not on file Insurance [facility]UE [facility] BL CHOICE PRF PPO [place] Care Teams Bull Fiddle Player Relationship Specialty Start Date End Date Douglas Flores MD [address] [place] [address] PCP - General Internal Medicine 09/02/20
--- OUTSIDE RECORDS SUMMARY | 2025-01-04 08:42 | XMS_ITS | Referral Summary ---
Author Organization [facility] [address] [employer] Address [address] [place] [address] Care Team Providers Care Sales Planning Manager Name Role Phone Douglas Flores MD Primary Care Provider [phone] Allergies No known active allergies Medications cetirizine [...] on file Legal Sex Female 3:10 PM DRY ROOM ATTENDANT Gender Identity Not on file Sexual Orientation Not on file Last Filed Vital Signs Vital Sign Reading Time Taken Comments Blood Pressure - - Pulse - - Temperature 36.6 C (97.8 F) 09/10/2020 8:27 AM DRY ROOM ATTENDANT Respiratory Rate - - Oxygen Saturation - - Inhaled Oxygen Concentration - - Weight 90.7 kg (200 lb) 09/10/2020 8:27 AM DRY ROOM ATTENDANT Height 167.6 cm (5' 6 ) 09/10/2020 8:27 AM DRY ROOM ATTENDANT Body Mass Index 32.28 09/10/2020 8:27 AM DRY ROOM ATTENDANT Plan of Treatment Not on file Insurance [employer] [employer] [place] Care Teams Sales Planning Manager Relationship Specialty Start Date End Date Douglas Flores MD [address] [place] [address] PCP - General Internal Medicine 09/02/20
== END 2025-01-04 08:38 | disposition home or self-care (01) ==
PROVIDERS: PCP Physician Assistant Medical; Visit Provider Surgery
DX: C50.911 Malignant neoplasm of unspecified site of right female breast (principal); C50.311 Malignant neoplasm of lower-inner quadrant of right female breast
CPT/HCPCS: 77049; A9577; C8908

== ENCOUNTER 2025-01-14 15:38 | Outpatient (CLI) | payer BC, SELFPAY ==
--- OUTSIDE RECORDS SUMMARY | 2025-01-14 15:42 | XMS_ITS | Clinical Summary ---
Author Organization [facility] Address [address] [place] [address] Care Team Providers Care Medical Services Manager Name Role Phone Stanislaw Sarmiento MD Primary Care Provider Unavailabl e Source Comments [facility],non-owned Affiliates and Associated Physician Practices is amultiple site organization consisting of ambulatory clinics and hospital sitesin [place], [place], [place] and [place]. This disclosure is being madepursuant to the Care Everywhere program and may not contain all information available regarding this patient. Last updated 18.[facility] Allergies No known active allergies Medications * [...] on file Legal Sex Female 7:02 AM LIFT SLAB OPERATOR Gender Identity Not on file Sexual Orientation Not on file Last Filed Vital Signs Vital Sign Reading Time Taken Comments Blood Pressure 112/70 07/25/2012 11:48 AM LIFT SLAB OPERATOR Pulse 70 07/25/2012 11:48 AM LIFT SLAB OPERATOR Temperature - - Respiratory Rate 14 07/25/2012 11:48 AM LIFT SLAB OPERATOR Oxygen Saturation - - Inhaled Oxygen Concentration - - Weight 81.2 kg (179 lb) 07/25/2012 11:48 AM LIFT SLAB OPERATOR Height 167.6 cm (5' 6 ) 07/25/2012 11:48 AM LIFT SLAB OPERATOR Body Mass Index 28.89 07/25/2012 11:48 AM LIFT SLAB OPERATOR Plan of Treatment Health Maintenance Due Date [...] Comments LIPID PROFILE Routine 09/15/2012 8:51 AM LIFT SLAB OPERATOR Screening for lipoid disorders from Last 3 Months or Most Recently Relevant to Health Maintenance Results * LIPID PROFILE (09/15/2012 8:51 AM LIFT SLAB OPERATOR) Cholesterol 161 125 - 200 mg/dL [facility] Comment: Test Performed at: [facility] [address] [place] [address] ROLANDO CLIFFORD DO,MPH HDL Cholesterol 62 > [...] BLOOD SPECIMEN / Unknown 09/15/2012 8:51 AM LIFT SLAB OPERATOR 09/15/2012 8:51 AM LIFT SLAB OPERATOR Stanislaw Sarmiento MD LAB - CHEMISTRY ORDERABLES Final Result [place] [id number] [place] [address] from Last 3 Months or Most Recently Relevant to Health Maintenance Insurance [facility] SELF PAY NO INSURANCE Member Subscriber Plan / Payer (Ef fective for All Dates) Name:Gisele Chandler Member ID:Not on file Relation to Subscriber:Not on file Name:GISELE CHANDLER Subscriber ID:Not on file (Home) Address: [address] [place] [address] Payer ID:Not on file Group ID:Not on file Type:Self Pay Address: [facility] Care Teams Medical Services Manager Relationship Specialty Start Date End Date Stanislaw Sarmiento MD Updated address needed PCP - General 09/30/09
--- OUTSIDE RECORDS SUMMARY | 2025-01-14 15:42 | XMS_ITS | Clinical Summary ---
Author Organization [facility] Address [address] [place] [address] Phone Care Team Providers Care Repairer Welding Systems And Equipment Name Role Phone Unavailable Primary Care Provider Unavailabl e Allergies No known active allergies Medications desvenlafaxine succinate (PRISTIQ) 25 mg Tablet Sustained Release 24HR Extended Release 24 hour tablet Take 1 Tablet by mouth daily. 10/29/2024 Active amitriptyline (ELAVIL) 25 mg tablet Take 25 mg by mouth daily at bedtime. 12/04/2024 Active Active Problems Problem Noted Date Diagnosed Date Protein calorie malnutrition 07/20/2010 Leukocytosis 07/20/2010 D.I.C. (disseminated intravascular coagulation) 07/19/2010 Hemorrhage after delivery of fetus 07/19/2010 Hypovolemia 07/19/2010 Chyst 07/1807/18/2010 Resolved Problems Problem Noted Date Diagnosed Date Resolved Date C section 07/18; PPH - 2uPRBC 07/18/2010 07/18/2010 MIL, pit, GBS neg 07/17/2010 07/18/2010 Encounters Date Type Department Care Team Description 01/09/2025 2:00 PM CDT Office Visit [facility] Oncology and Hematology - [place] [address] [place] [address] Manuel Bowman MD Breast cancer metastasized to axillary lymph node, right (CMS/HCC) (Primary Dx) from Last 3 Months Immunizations Immunization Administration Dates Next Due (M-M-R II/PRIORIX)(12 MO UP) MEASLES, MUMPS AND RUBELLA VIRUS VACCINE, 0.5 ML IM/SUBCUT 07/19/2010,10/16/1999 Hepatitis B Vaccine 04/07/2001,08/27/2000,1999 Family History Medical History Relation Name Comments Prostate Cancer Brother 1 No Known Problems Brother 2 No Known Problems Child 1 No Known Problems Child 2 Adopted No Known Problems Child 3 Adopted Skin Cancer Father No Known Problems Mother Relation Name Status Comments Brother 1 Alive Brother 2 Alive Child 1 Alive Child 2 Alive Child 3 Alive Father Alive Mother Alive Social History Tobacco Use Types Packs/Day Years Used Date Smoking Tobacco: Never Smokeless Tobacco: Never Alcohol Use Standard Drinks/Week Comments Yes 0 (1 standard drink = 0.6 oz pur e alcohol) occasional Comments Unknown Sex and Gender Information Value Date Recorded Sex Assigned at Not on file Legal Sex Female 5:57 AM POLICY ADVISER Gender Identity Not on file Sexual Orientation Not on file Last Filed Vital Signs Vital Sign Reading Time Taken Comments Blood Pressure 113/77 01/09/2025 1:51 PM CDT Pulse 104 01/09/2025 1:51 PM CDT Temperature 36.8 C (98.3 F) 01/09/2025 1:51 PM CDT Respiratory Rate 15 01/09/2025 1:51 PM CDT Oxygen Saturation 98% 01/09/2025 1:51 PM CDT Inhaled Oxygen Concentration - - Weight 90.6 kg (199 lb 12.8 oz) 01/09/2025 1:51 PM CDT Height 167.6 cm (5' 6 ) 07/17/2010 10:1 0 PM POLICY ADVISER Body Mass Index - - Plan of Treatment Upcoming Encounters Date Type Department Care Team (Late st Contact Info) Description 01/22/2025 4:30 PM CDT Telephone Check Up [facility] Oncology and Hematology - [place] [address] [place] [address] Manuel Bowman MD [address] [facility] [address] [place] [address] Health Maintenance Due Date Last Done Comments DTAP/TDAP/TD VACCINES (1 - Tdap) 2000 INFLUENZA VACCINE (#1) 2024 Preventative Visit- Commercial 08/29/2024 BREAST CANCER SCREENING 04/10/2025 04/10/20 24, 04/10/2024, 03/30/2023, Additional history exists HEPATITIS B VACCINES Completed 04/07/2001, 04/07/2001, 08/27/2000, Additional history exists HPV VACCINES Aged Out No longer eligi ble based on patient's age to complete this topic Insurance [place] [id number] MEDICA[address] [place] [address] BLUE ACCESS CHOICE Advance Directives For more information, please contact: [phone] * Full Code (Latest Code Status on [...]
--- OUTSIDE RECORDS SUMMARY | 2025-01-14 15:42 | XMS_ITS | Referral Summary ---
Author Organization [facility] [address] [employer] Address [address] [place] [address] Care Team Providers Care Tool And Die Inspector Name Role Phone Douglas Flores MD Primary Care Provider [phone] Allergies No known active allergies Medications cetirizine [...] on file Legal Sex Female 3:10 PM ELECTRIC MILKERS INSTALLER Gender Identity Not on file Sexual Orientation Not on file Last Filed Vital Signs Vital Sign Reading Time Taken Comments Blood Pressure - - Pulse - - Temperature 36.6 C (97.8 F) 09/10/2020 8:27 AM ELECTRIC MILKERS INSTALLER Respiratory Rate - - Oxygen Saturation - - Inhaled Oxygen Concentration - - Weight 90.7 kg (200 lb) 09/10/2020 8:27 AM ELECTRIC MILKERS INSTALLER Height 167.6 cm (5' 6 ) 09/10/2020 8:27 AM ELECTRIC MILKERS INSTALLER Body Mass Index 32.28 09/10/2020 8:27 AM ELECTRIC MILKERS INSTALLER Plan of Treatment Not on file Insurance [place] Care Teams Tool And Die Inspector Relationship Specialty Start Date End Date Douglas Flores MD [address] [place] [address] PCP - General Internal Medicine 09/02/20
--- OUTSIDE RECORDS SUMMARY | 2025-01-14 15:42 | XMS_ITS | Clinical Summary ---
Author Organization [facility] [address] [employer] Address [address] [place] [address] Care Team Providers Care Computer System Validation Specialist Name Role Phone Douglas Flores MD Primary Care Provider [phone] Allergies No known active allergies Medications cetirizine [...] on file Legal Sex Female 3:10 PM RN BEHAVIORAL HEALTH Gender Identity Not on file Sexual Orientation Not on file Obstetrics History Last Filed Vital Signs Vital Sign Reading Time Taken Comments Blood Pressure - - Pulse - - Temperature 36.6 C (97.8 F) 09/10/2020 8:27 AM RN BEHAVIORAL HEALTH Respiratory Rate - - Oxygen Saturation - - Inhaled Oxygen Concentration - - Weight 90.7 kg (200 lb) 09/10/2020 8:27 AM RN BEHAVIORAL HEALTH Height 167.6 cm (5' 6 ) 09/10/2020 8:27 AM RN BEHAVIORAL HEALTH Body Mass Index 32.28 09/10/2020 8:27 AM RN BEHAVIORAL HEALTH Plan of Treatment Not on file Insurance BLUE [facility] BL CHOICE PRF PPO [place] Care Teams Computer System Validation Specialist Relationship Specialty Start Date End Date Douglas Flores MD [address] [place] [address] PCP - General Internal Medicine 09/02/20
--- OUTSIDE RECORDS SUMMARY | 2025-01-14 15:42 | XMS_ITS | Clinical Summary ---
Author Organization [facility] Address [address] [place] [address] Care Team Providers Care Occupational Physician Name Role Phone Rosalva Domingo Primary Care Provider [phone] Allergies No known active allergies Medications St [...] Relevant to Health Maintenance Insurance Care Teams Occupational Physician Relationship Specialty Start Date End Date Rosalva Domingo PA [address] [place] [address] PCP - General PHYSICIAN FLAGMAN 02/22/23
[2025-01-14 16:21] LABS: Basophils Absolute Auto 0.1 K/mm3 (0.0-0.1); Basophils Percent Auto 0.6 % (0.2-1.2); Eosinophils Absolute Auto 0.2 K/mm3 (0-0.3); Eosinophils Percent Auto 1.2 % (0-4.4); Hematocrit 43.1 % (37.0-47.0); Hemoglobin 13.5 g/dL (12.0-15.0); Immature Granulocyte Absolute 0.06 K/mm3 (0.00-0.031); Immature Granulocyte Percent A 0.4 % (0-0.5); Lymphocytes Absolute Auto 4.86 K/mm3 (0.9-3.2); Lymphocytes Percent Auto 35.1 % (18.3-44.2); Mean Corpuscular HGB Conc 31.3 g/dl (32-36); Mean Corpuscular Hemoglobin 29.1 pg (26-34); Mean Corpuscular Volume 92.9 fl (80-100); Mean Platelet Volume 10.4 fl (7.4-10.4); Monocytes Absolute Auto 1.2 K/mm3 (0.1-0.6); Monocytes Percent Auto 8.5 % (2.6-8.5); Neutrophils Absolute Auto 7.5 K/mm3 (1.3-6.7); Neutrophils Percent Auto 54.2 % (45.5-73.1); Platelet Count Result 326 k/mm3 (150-375); Red Blood Count 4.64 M/mm3 (4.2-5.4); Red Cell Distribution Width 12.6 % (11.5-14.5); White Blood Count 13.8 K/mm3 (4.5-10.0)
[2025-01-14 16:32] LABS: INR 0.8; Prothrombin Time 11.8 Seconds (11.1-14.7)
== END 2025-01-14 15:39 | disposition home or self-care (01) ==
LOC: ANHLAB 15:39
PROVIDERS: PCP Physician Assistant Medical; Visit Provider Surgery
DX: C50.911 Malignant neoplasm of unspecified site of right female breast (principal)
CPT/HCPCS: 36415; 85025; 85610; 85730

== ENCOUNTER 2025-01-16 00:05 | Day surgery (SDC) | payer BC, SELFPAY ==
[2025-01-14 11:06] VITALS: BMI 32.0
--- NOTE | 2025-01-14 11:17 | PC.NURSE ---
Report to the Outpatient Waiting Room, entrance under the green pavilion located off [facility], at time _0830_ on date _[id number]_. Planned Procedure Time: _1030_. Time changes happen often and if your time is changed the preop area will call you the afternoon before. - You and your visitor will be asked to self-screen and do not enter if you have any COVID symptoms. Please call surgeon if you need to reschedule. - A mask is optional within the hospital at this time. Patients may have clear liquids (water, carbonated beverages, clear teas, apple juice) until 3 hours prior to surgery with a maximum of 20 ounces. - No food from midnight until time of surgery and no smoking, or chewing tobacco (or any form of nicotine). No chewing gum, candy or mints. Take only the following medications with a SIP of water on the morning of surgery: ___None DO NOT STOP ANY OF YOUR OTHER PRESCRIPTION MEDICATIONS PRIOR TO SURGERY EXCEPT THE FOLLOWING Hold all vitamins and supplements for 3 days per anesthesiologist. Medications to discontinue per physician Date to take last dose Please no make-up, nail liberian, hairspray, perfume, deodorant, or body powder the day of surgery. No jewelry (including any body piercings) or valuables the day of surgery, leave them at home. Please take a shower or bath the night before, or the morning of, surgery with an antibacterial soap. Wear comfortable, loose fitting clothing. - Jewelry must be removed prior to entering the operating room. Rings and piercings that are not removed may be cut off. - The hospital will not accept responsibility for valuables. - Please leave all valuables, including medications, at home the day of surgery. If you are going home after surgery, a licensed local company hazmat driver must drive you home. - NO public transportation without another adult if you receive anesthesia. - We recommend that an adult stay with you for 24 hours following discharge. - We also recommend that you do not drive, make important decision, drink alcoholic beverages, or take any drugs that were not prescribed by your health care provider for at least 24 hours after your discharge time. Follow any additional instructions given to you from your surgeon. Telephone instructions given to __November___and asked if any additional questions and then verbalized understanding. Patient advised to call surgeon office or pre surgery nurse liaison [phone] if any additional questions.
[2025-01-16] VITALS (10 sets, daily range): BP systolic 87–126; BP diastolic 48–84; PULSE 91–106; RESP 12–16; TEMP 36.4–36.7; O2SAT 98–100; BMI 31.9
--- NOTE | ~2025-01-16 | XR_ITS ---
EXAMINATION: XR chest port-a-cath/central DATE: 01/16/2025 13:28 INDICATION: Port catheter insertion TECHNIQUE: frontal view of the chest was obtained. COMPARISON: None FINDINGS: Left internal jugular central venous port catheter with distal tip at the cephalad superior vena cava . Mild linear discoid atelectasis/scarring at the bilateral mid lung zones. No other airspace opaciti es, pulmonary edema, pleural effusion or pneumothorax. The cardiomediastinal silhouette is normal. Vi sualized bones and soft tissues are unremarkable. IMPRESSION: 1. Left internal jugular central venous port catheter tip at the cephalad superior vena cava. 2. Mild discoid atelectasis/scarring at the bilateral mid lung zones. No pneumothorax or other acute cardiopulmonary disease. Reviewed, dictated and finalized at location A. IMPRESSION: 1. Left internal jugular central venous port catheter tip at the cephalad super ior vena cava. 2. Mild discoid atelectasis/scarring at the bilateral mid lung zones. No pneumo thorax or other acute cardiopulmonary disease.
--- NOTE | ~2025-01-16 | XR_ITS ---
EXAMINATION: XR fl guide central line place DATE: 01/16/2025 12:34 INDICATION: Port catheter insertion TECHNIQUE: 2 fluoroscopic images of the left side of the chest were obtained during procedure perform ed by Dr. Steve. Radiologist was not present for the imaging or procedure. The amount of fluoroscop y time used during this procedure was 1.1 minutes. Total DAP was 2.207 Gycm^2. COMPARISON: None. FINDINGS: Left internal jugular central venous port catheter with distal tip extending across the midline and b eyond the margins of the field of imaging. Visualized portion of the left upper lung is clear with no evident pneumothorax. IMPRESSION: 1. Expected appearance during left internal jugular central venous port catheter placement. See proce dure note for further detail. Reviewed, dictated and finalized at location A. IMPRESSION: 1. Expected appearance during left internal jugular central venous port cathete r placement. See procedure note for further detail.
--- OUTSIDE RECORDS SUMMARY | 2025-01-16 00:08 | XMS_ITS | Referral Summary ---
Author Organization [facility] [address] [employer] Address [address] [place] [address] Care Team Providers Care Traffic Controller Cable Name Role Phone Douglas Flores MD Primary Care Provider [phone] Allergies No known active allergies Medications cetirizine [...] on file Legal Sex Female 3:10 PM HOT WIRE GLASS TUBE CUTTER Gender Identity Not on file Sexual Orientation Not on file Last Filed Vital Signs Vital Sign Reading Time Taken Comments Blood Pressure - - Pulse - - Temperature 36.6 C (97.8 F) 09/10/2020 8:27 AM HOT WIRE GLASS TUBE CUTTER Respiratory Rate - - Oxygen Saturation - - Inhaled Oxygen Concentration - - Weight 90.7 kg (200 lb) 09/10/2020 8:27 AM HOT WIRE GLASS TUBE CUTTER Height 167.6 cm (5' 6 ) 09/10/2020 8:27 AM HOT WIRE GLASS TUBE CUTTER Body Mass Index 32.28 09/10/2020 8:27 AM HOT WIRE GLASS TUBE CUTTER Plan of Treatment Not on file Insurance [place] Care Teams Traffic Controller Cable Relationship Specialty Start Date End Date Douglas Flores MD [address] [place] [address] PCP - General Internal Medicine 09/02/20
--- OUTSIDE RECORDS SUMMARY | 2025-01-16 00:08 | XMS_ITS | Clinical Summary ---
Author Organization [facility] Address [address] [place] [address] Phone Care Team Providers Care Instrumentation Technician Name Role Phone Unavailable Primary Care Provider Unavailabl e Allergies No known active allergies Medications desvenlafaxine succinate (PRISTIQ) 25 mg Tablet Sustained Release 24HR Extended Release 24 hour tablet Take 1 Tablet by mouth daily. 10/29/2024 Active amitriptyline (ELAVIL) 25 mg tablet Take 25 mg by mouth daily at bedtime. 12/04/2024 Active LORazepam (ATIVAN) 1 mg tabletIndication s:Anxiety state Take 1 Tablet (1 mg) by mouth every 6 hours as needed for Anxiety. 2 Tablet 01/15/2025 Active Active Problems Problem Noted Date Diagnosed Date Protein calorie malnutrition 07/20/2010 Leukocytosis 07/20/2010 D.I.C. (disseminated intravascular coagulation) 07/19/2010 Hemorrhage after delivery of fetus 07/19/2010 Hypovolemia 07/19/2010 Chyst 07/1807/18/2010 Resolved Problems Problem Noted Date Diagnosed Date Resolved Date C section 07/18; PPH - 2uPRBC 07/18/2010 07/18/2010 MIL, pit, GBS neg 07/17/2010 07/18/2010 Encounters Date Type Department Care Team Description 01/15/2025 Orders Only [facility] Oncology and Hematology - [place] [address] [place] [address] Manuel Bowman MD Anxiety state (Primary Dx) 01/09/2025 2:00 PM CDT Office Visit [facility] Oncology and Hematology [facility] [address] [place] [address] Manuel Bowman MD Breast cancer metastasized [...] on file Legal Sex Female 5:57 AM INCENDIARIES SUPERVISOR Gender Identity Not on file Sexual [...] (5' 6 ) 07/17/2010 10:1 0 PM INCENDIARIES SUPERVISOR Body Mass Index - - Plan of Treatment Upcoming Encounters Date Type Department Care Team (Late st Contact Info) Description 01/22/2025 4:30 PM CDT Telephone Check Up [facility] Oncology and Hematology - [place] [address] [facility] [address] [place] [address] Manuel Bowman MD [address] [facility] [address] [place] [address] Health Maintenance Due Date Last Done Comments DTAP/TDAP/TD VACCINES (1 - Tdap) 2000 INFLUENZA VACCINE (#1) 2024 Preventative Visit- Commercial 08/29/2024 BREAST CANCER SCREENING 04/10/2025 04/10/20 24, 04/10/2024, 03/30/2023, Additional history exists HEPATITIS B VACCINES Completed 04/07/2001, 04/07/2001, 08/27/2000, Additional history exists HPV VACCINES Aged Out No longer eligi ble based on patient's age to complete this topic Insurance [employer] CHOICE Advance Directives For more information, please contact: [phone] * Full Code (Latest Code Status on [...]
--- OUTSIDE RECORDS SUMMARY | 2025-01-16 00:08 | XMS_ITS | Clinical Summary ---
Author Organization [facility] Address [address] [address] Care Team Providers Care Sales Support Coordinator Name Role Phone Stanislaw Sarmiento MD Primary Care Provider Unavailabl e Source Comments [facility],non-owned Affiliates and Associated Physician Practices is amultiple site organization consisting of ambulatory clinics and hospital sitesin [place], [place], [place] and [place]. This disclosure is being madepursuant to the Care Everywhere program and may not contain all information available regarding this patient. Last updated 18.[facility] Allergies No known active allergies Medications * [...] on file Legal Sex Female 7:02 AM CLINICAL IMPLEMENTATION SPECIALIST Gender Identity Not on file Sexual Orientation Not on file Last Filed Vital Signs Vital Sign Reading Time Taken Comments Blood Pressure 112/70 07/25/2012 11:48 AM CLINICAL IMPLEMENTATION SPECIALIST Pulse 70 07/25/2012 11:48 AM CLINICAL IMPLEMENTATION SPECIALIST Temperature - - Respiratory Rate 14 07/25/2012 11:48 AM CLINICAL IMPLEMENTATION SPECIALIST Oxygen Saturation - - Inhaled Oxygen Concentration - - Weight 81.2 kg (179 lb) 07/25/2012 11:48 AM CLINICAL IMPLEMENTATION SPECIALIST Height 167.6 cm (5' 6 ) 07/25/2012 11:48 AM CLINICAL IMPLEMENTATION SPECIALIST Body Mass Index 28.89 07/25/2012 11:48 AM CLINICAL IMPLEMENTATION SPECIALIST Plan of Treatment Health Maintenance Due [...] Comments LIPID PROFILE Routine 09/15/2012 8:51 AM CLINICAL IMPLEMENTATION SPECIALIST Screening for lipoid disorders from Last 3 Months or Most Recently Relevant to Health Maintenance Results * LIPID PROFILE (09/15/2012 8:51 AM CLINICAL IMPLEMENTATION SPECIALIST) Cholesterol 161 125 - 200 mg/dL [facility] Comment: Test Performed at: [facility] [address] [place] [address] ROLANDO CLIFFORD DO,MPH HDL Cholesterol 62 > [...] BLOOD SPECIMEN / Unknown 09/15/2012 8:51 AM CLINICAL IMPLEMENTATION SPECIALIST 09/15/2012 8:51 AM CLINICAL IMPLEMENTATION SPECIALIST Stanislaw Sarmiento MD LAB - CHEMISTRY ORDERABLES Final Result [place] [id number] [place] [address] from Last 3 Months or Most Recently Relevant to Health Maintenance Insurance [facility] SELF PAY NO INSURANCE Member Subscriber Plan / Payer (Ef fective for All Dates) Name:Gisele Chandler Member ID:Not on file Relation to Subscriber:Not on file Name:GISELE CHANDLER Subscriber ID:Not on file (Home) Address: [address] [place] [address] Payer ID:Not on file Group ID:Not on file Type:Self Pay Address: [facility] Care Teams Sales Support Coordinator Relationship Specialty Start Date End Date Stanislaw Sarmiento MD Updated address needed PCP - General 09/30/09
--- OUTSIDE RECORDS SUMMARY | 2025-01-16 00:08 | XMS_ITS | Clinical Summary ---
Author Organization [facility] [address] [employer] Address [address] [place] [address] Care Team Providers Care Crop Consultant Name Role Phone Douglas Flores MD Primary Care Provider [phone] Allergies No known active allergies Medications cetirizine [...] on file Legal Sex Female 3:10 PM ADMINISTRATION CLERK Gender Identity Not on file Sexual Orientation Not on file Obstetrics History Last Filed Vital Signs Vital Sign Reading Time Taken Comments Blood Pressure - - Pulse - - Temperature 36.6 C (97.8 F) 09/10/2020 8:27 AM ADMINISTRATION CLERK Respiratory Rate - - Oxygen Saturation - - Inhaled Oxygen Concentration - - Weight 90.7 kg (200 lb) 09/10/2020 8:27 AM ADMINISTRATION CLERK Height 167.6 cm (5' 6 ) 09/10/2020 8:27 AM ADMINISTRATION CLERK Body Mass Index 32.28 09/10/2020 8:27 AM ADMINISTRATION CLERK Plan of Treatment Not on file Insurance BLUE [facility] BL CHOICE PRF PPO [place] Care Teams Crop Consultant Relationship Specialty Start Date End Date Douglas Flores MD [address] [place] [address] PCP - General Internal Medicine 09/02/20
--- OUTSIDE RECORDS SUMMARY | 2025-01-16 00:08 | XMS_ITS | Encounter Summary ---
Author Organization [facility] [employer] [facility] Address [address] [place] [address] Care Team Providers Care Visual Basic .Net Developer Name Role Phone Unavailable Primary Care Provider Unavailabl e Encounter Details Date Type Department Care Team (Late Contact Info) Description 01/15/2025 Orders Only [facility] Oncology and Hematology [address] [place] [address] Manuel Bowman MD [address] [place] [id number] Anxiety state (Primary Dx) Social History Tobacco Use Types Packs/Day Years Used Date Smoking Tobacco: Never Smokeless Tobacco: Never Alcohol Use Standard Drinks/Week Comments Yes 0 (1 standard drink = 0.6 oz pur e alcohol) occasional Comments Unknown Sex and Gender Information Value Date Recorded Sex Assigned at Not on file Legal Sex Female 5:57 AM OIL OPERATOR Gender Identity Not on file Sexual Orientation Not on file documented as of this encounter Plan of Treatment Upcoming Encounters Date Type Department Care Team (Late Contact Info) Description 01/22/2025 4:30 PM CDT Telephone Check Up [facility] Oncology and Hematology - Keegan [address] [place] [address] Manuel Bowman MD [address] [place] [address] documented as of this encounter Visit Diagnoses Diagnosis Anxiety state- Primary Anxiety state, unspecified documented in this encounter
[2025-01-16] MEDS: LACTATED RINGERS 1,000 ML 30 ML IV CONT ×2 (09:50→12:30)
--- NOTE | 2025-01-16 11:10 | WPDANESEPPF ---
Anes - Initial Pre Proc Eval Procedure: Operation Date: 01/16/25 11:30 Proposed Procedures p Mediport Placement Under Fluoroscopy and Ultrasound Guidance - Iraida Steve MD Date/Time: 01/16/25 11:10 Surgeon: Iraida Steve MD Pre Op Diagnosis: neoplasm right breast Patient Data Age: 44 Gender: F Height: 1.68 m Weight: 89.9 kg Last Vital Signs Temp 36.7 C 01/16/25 09:27 Pulse 95 01/16/25 09:27 Resp 16 01/16/25 09:27 BP 109/80 01/16/25 09:27 Pulse Ox 100 01/16/25 09:27 O2 Del Method Room Air 01/16/25 09:27 Allergies Allergy/AdvReac Type Severity Reaction Status Date / Time No Known Allergies Allergy Verified 01/16/25 10:06 Home Medications Medication Instructions Recorded Confirmed Type desvenlafaxine succinate 25 mg 25 mg PO DAILY #90 tabs 10/29/24 01/16/25 Rx tablet,extended release 24 hr amitriptyline 25 mg tablet 25 mg PO QHS #90 tabs 12/04/24 01/16/25 Rx Patient hx anesthesia problems: none Family hx anesthesia problems: none Results Review: All pre-operative results and documents have been reviewed as part of the pre-operative evaluation. [facility] Past Medical History Medical History (Updated 01/16/25 @ 11:10 by Gerald Guo MD) Obesity Depression Migraine Seasonal allergies Surgical History Surgical History History of cholecystectomy [place] teeth removed History of section S/P partial hysterectomy S/P knee surgery Family History Family History Other Carcinoma of colon Hypertension Social History Social History Social History: 08/13/24 very confident with medical forms. 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 Informed Consent: The patient's anesthetic plan and its attendant risks and benefits were discussed with the patient/family/POA. Questions were solicited and answers provided to the satisfaction of the patient/family/POA.
--- NOTE | 2025-01-16 11:13 | WPDHPUPDATE1 ---
History and Physical Update Update Date/Time: 01/16/25 11:13 - MediPort placement with fluoroscopy and ultrasound guidance History and Physical has been reviewed, including an updated exam of the patient. There are NO changes in the patient's condition. Risks, benefits, and alternatives have been discussed and questions answered. Patient agrees to proceed with procedure.
[2025-01-16] MEDS: ceFAZolin 2 GM/D5W 50 ML 2 GM/50 ML BAG IVPB (11:24)
[2025-01-16] MEDS: BUPIVACAINE/EPINEPHRINE 0.5% 10 ML VIAL 20 ML INFILTRATE (11:44)
[2025-01-16] MEDS: HEPARIN SODIUM 5,000 UNITS/ML VIAL 5000 UNITS IV PUSH (11:45)
[2025-01-16] MEDS: HEPARIN SODIUM 5,000 UNITS/ML VIAL 10000 UNITS IV PUSH (11:46)
--- NOTE | 2025-01-16 12:26 | W.PM.PROC2 ---
Procedure Note - Detailed Date of Procedure 01/16/25 Pre-op Diagnosis neoplasm right breast Post-op Diagnosis Same Procedure Performed Left internal jugular venous mediport placement with fluoroscopy and US guidance Surgeon Iraida Steve MD Anesthesia General Description of Procedure Patient was identified in the preoperative holding area brought to the operating room suite. She was laid supine in the OR table. Sequential compression devices were applied. MAC anesthesia was induced without difficulty. The left neck and upper chest areas were prepped and draped in a sterile fashion. Attention was turned to the left neck. Ultrasound was used to identify the internal jugular vein and a small incision was made overlying this area. Local anesthetic was infiltrated in the subcutaneous tissue and a needle was then slowly advanced under ultrasound guidance into the lumen of the internal jugular vein. Once dark venous blood was aspirated the syringe was removed and a guidewire was introduced into the internal jugular vein. Fluoroscopy images were obtained to verify the position of the wire going down into the superior vena cava. Once this was confirmed a small pocket was made by making a small incision with a 15 blade in the right upper chest. Dissection was carried down through the subcutaneous tissue and a small pocket was created for the future port. Hemostasis was assured. I then proceed to tunnel the catheter from this pocket to the neck after injecting local anesthetic in the subcutaneous tissue of the neck. Fluoroscopy images were obtained to measure the length of the catheter with the tip at the cavoatrial junction. The catheter was then cut distally at approximately 25 cm and connected to port. The port was then flushed with heparinized saline. An introducer with the peel-away sheath was then introduced into internal jugular vein under fluoroscopy guidance using the previously placed wire. The wire was removed as well as the introducer leaving the peel-away sheath. The catheter was then introduced into the internal jugular via the peel-away sheath which was slowly removed. Once the catheter was in good position, I was able to aspirate dark venous blood and easily flushed the port using the el needle. A x-ray picture was taking to ensure there is no kinks throughout the catheter and the catheter tip was in good position at the superior vena cava. Once this was performed the port was then secured to pectoralis fascia using interrupted silk sutures and placed into the subcutaneous pocket. The port was again aspirated and flushed with heparinized saline. The deep dermal layer was closed with interrupted Vicryl and the skin was closed with 4-0 Monocryl in a subcuticular fashion. The small incision in the neck was closed with a single interrupted Monocryl suture. Dermabond was applied to all the incisions. Patient was awoken from anesthesia and taken to the recovery area in stable condition. All needles, sponges and instruments counts were correct as reported by the OR staff. Patient tolerated the procedure well with no immediate complications. Estimated Blood Loss 5 Complications No immediate complications Condition Stable Disposition PACU [facility] Billing Surgery - Charge Forward: Surgery Billing (CPT 80408, [id number])
[2025-01-16] MEDS: fentaNYL CITRATE INJ (*CRX) 100 MCG/2 ML VIAL 25 MCG IV PUSH ×4 (12:58→13:08)
== END 2025-01-16 15:07 | disposition home or self-care (01) ==
PROVIDERS: PCP Physician Assistant Medical; Visit Provider Surgery
PROC: (CPT 36561; principal; 2025-01-16 11:30)
DX: C50.911 Malignant neoplasm of unspecified site of right female breast (principal); E66.9 Obesity, unspecified; Z68.32 Body mass index [BMI] 32.0-32.9, adult
CPT/HCPCS: 36561; 77001; 93306; C1788; J0690; J1644; J2003; J2250; J2371; J2405; J2704; J3010; J7030; J7120

== ENCOUNTER 2025-01-16 07:37 | Outpatient (CLI) | payer BC, SELFPAY ==
--- NOTE | 2025-01-16 | ECHO_ITS ---
Patient Info Name: Gisele Chandler Age: 44 years : 1980 Gender: Female Ht: 66 in Wt: 199 lbs BSA: 2.08 m2 HR: 89 bpm BP: 101 / 76 mmHg Technical Quality: Good Exam Date: 01/16/2025 8:10 AM Patient Status: O Admit Date: 01/16/2025 Exam Type: CA echo doppler color flow Complete two-dimensional, color flow and Doppler transthoracic echocardiogram is performed. Strain analysis performed. Director Of Manufacturing Operations: Christina Mckeon Attending Provider: Manuel Bowman MD Summary 1. Complete two-dimensional, color flow and Doppler transthoracic echocardiogram is performed. 2. Left ventricular chamber dimension is normal. 3. Left ventricular systolic function is normal, estimated at 60-65. 4. The left ventricular diastolic function is normal. 5. Global longitudinal strain is normal at -17.5%. 6. E/e' 5 is not elevated. 7. Left atrial chamber dimension is mildly enlarged. 8. There is trace tricuspid valve regurgitation. 9. No pulmonary hypertension, estimated pulmonary arterial systolic pressure is 19 mmHg. Left Ventricle E/e' 5 is not elevated. Left ventricular chamber dimension is normal. Left ventricular systolic function is normal, estimated at 60-65. The left ventricular diastolic function is normal. Global longitudinal strain is normal at -17.5%. Right Ventricle Right ventricular chamber dimension is normal. Right ventricular systolic function is normal. Left Atria Left atrial chamber dimension is mildly enlarged. Right Atria Right atrial chamber dimension is normal. Aortic Valve The aortic valve is trileaflet. There is no aortic valve stenosis. There is no aortic valve regurgitation. Pulmonic Valve There is no pulmonic regurgitation. Mitral Valve There is no mitral valve stenosis. There is no mitral valve regurgitation. Tricuspid Valve There is trace tricuspid valve regurgitation. No pulmonary hypertension, estimated pulmonary arterial systolic pressure is 19 mmHg. Pericardium/Pleural There is no pericardial effusion. Inferior Vena Cava Normal inferior vena cava with >50% collapse upon inspiration consistent with normal right atrial pressure, 5 mmHg. Aorta The aortic root size at the sinus of Valsalva is normal. Left Ventricular Outflow Tract Name Value Normal LVOT 2D LVOT Diameter 1.8 cm LVOT Doppler LVOT Peak Velocity 113 cm/s LVOT Peak Gradient 5 mmHg LVOT Mean Gradient 3 mmHg LVOT VTI 25 cm LVOT VTI/AV VTI Ratio 1.0 LVOT Stroke Volume 61 ml LVOT CO 12.8 l/min LVOT CI 6.1 l/min/m2 Pulmonic Valve Name Value Normal PV Doppler PV Peak Velocity 79 cm/s PV Peak Gradient 2 mmHg Mitral Valve Name Value Normal MV Diastolic Function MV E Peak Velocity 61 cm/s MV A Peak Velocity 51 cm/s MV E/A 1.2 MV Decel Time (PW) 128 ms MV Annular TDI MV E/e' (Septal) 7.3 MV E/e' (Lateral) 4.7 MV E/e' (Average) 6.0 Tricuspid Valve Name Value Normal TV Regurgitation Doppler TR Peak Velocity 190 cm/s TR Peak Gradient 12 mmHg Estimated PAP/RSVP RA Pressure 5 mmHg <=5 PA Systolic Pressure 19 mmHg <36 RV Systolic Pressure 19 mmHg <36 TV Annular TDI TV Lateral Slime s' Velocity 10.7 cm/s >=9.5 Aorta Name Value Normal Ascending Aorta Ao Root Diameter (MM) 2.5 cm Ao Root Diam Index (MM) 1.2 cm/m2 Aortic Valve Name Value Normal AV Doppler AV Peak Velocity 124 cm/s AV Peak Gradient 6 mmHg AV Mean Gradient 4 mmHg AV VTI 25 cm AV Area (Cont Eq VTI) 2.5 cm2 >=3.0 AV Area (Cont Eq Spencer) 2.3 cm2 AV DI (Spencer) 0.91 AV Regurgitation 2D LVOT Area 2.5 cm2 Ventricles Name Value Normal LV Dimensions 2D/MM IVS Diastolic Thickness (2D) 0.8 cm 0.6-1.0 LVID Diastole (2D) 3.7 cm 3.8-5.2 LVIW Diastolic Thickness (2D) 0.9 cm 0.6-0.9 LVID Systole (2D) 2.5 cm 2.2-3.5 LVOT Diameter 1.8 cm LV Mass (2D Cubed) 93.83 g 67.00-162.00 LV Mass Index (2D Cubed) 45 g/m2 43-95 Relative Wall Thickness (2D) 0.48 <=0.42 LV Fractional Shortening/Ejection Fraction 2D/MM LV Fractional Shortening (2D) 32 % 27-45 LV EF (2D Teichholz) 61 % LV Diastolic Volume (4C MOD) 73 ml LV EF (4C MOD) 57 % LV Diastolic Volume (2C MOD) 71 ml LV EF (2C MOD) 59 % LV Diastolic Volume (BP MOD) 74 ml 46-106 LV Diastolic Volume Index (BP MOD) 35 ml/m2 29-61 LV Systolic Volume (BP MOD) 31 ml 14-42 LV Systolic Volume Index (BP MOD) 15 ml/m2 8-24 LV EF (BP MOD) 58 % 54-74 LV Diastolic Length (4C) 8.1 cm LV Systolic Length (4C) 6.8 cm LV Stroke Volume (4C MOD) 41 ml RV Dimensions 2D/MM RVID Diastole (2D) 3.1 cm 2.1-3.5 Atria Name Value Normal LA Dimensions LA Dimension (MM) 2.8 cm 2.7-3.8 LA Volume (4C A-L) 36 ml LA Volume (BP A-L) 36 ml RA Dimensions RA Systolic Major [place] Length (4C) 4.2 cm 2.2-2.8 RA Area (4C) 12.0 cm2 <=18.0 EchoPAC Name Value Normal AutoEF HR_4Ch_Q (Oglt9OEY) 80 bpm LVCO_4Ch_Q (Gayd6MZB) 2.7 l/min LVEF_4Ch_Q (Sawa3NXM) 51 % LVLd_4Ch_Q (Lwcc5IHA) 7.6 cm LVLs_4Ch_Q (Oysp9CER) 6.3 cm LVSV_4Ch_Q (Bwfa7XMI) 33 ml LVVED_4Ch_Q (Dhrg0NBA) 65 ml LVVES_4Ch_Q (Fnua5TPG) 32 ml AFSANEH LV Apical Anterior Longitudinal Strain (AFSANEH) -18.2 % LV Apical Anteroseptal Longitudinal Strain (AFSANEH) -15.2 % LV Apical Inferior Longitudinal Strain (AFSANEH) -22.8 % LV Apical Lateral Longitudinal Strain (AFSANEH) -15.0 % LV Apical Posterior Longitudinal Strain (AFSANEH) -15.4 % LV Apical Septal Longitudinal Strain (AFSANEH) -21.0 % AV Closure (AFSANEH) 363 ms LV Basal Anterior Longitudinal Strain (AFSANEH) -17.9 % LV Basal Anteroseptal Longitudinal Strain (AFSANEH) -17.1 % LV Basal Inferior Longitudinal Strain (AFSANEH) -13.4 % LV Basal Anterolateral Longitudinal Strain (AFSANEH) -21.8 % LV Basal Inferolateral Longitudinal Strain (AFSANEH) -16.5 % LV Basal Inferoseptal Longitudinal Strain (AFSANEH) -17.9 % LV Global Longitudinal Strain (2C AFSANEH) -17.8 % LV Global Longitudinal Strain (4C AFSANEH) -17.9 % LV Global Longitudinal Strain (APLAX AFSANEH) -16.8 % LV Global Longitudinal Strain (AFSANEH) -17.5 % LV Mid Anterior Longitudinal Strain (AFSANEH) -22.5 % LV Mid Anteroseptal Longitudinal Strain (AFSANEH) -21.2 % LV Mid Inferior Longitudinal Strain (AFSANEH) -14.8 % LV Mid Anterolateral Longitudinal Strain (AFSANEH) -14.7 % LV Mid Inferolateral Longitudinal Strain (AFSANEH) -19.4 % LV Mid Inferoseptal Longitudinal Strain (AFSANEH) -17.2 % Report Signatures
--- OUTSIDE RECORDS SUMMARY | 2025-01-16 07:59 | XMS_ITS | Encounter Summary ---
Author Organization [facility] Address [address] [place] [address] Care Team Providers Care Sack Sewer Machine Name Role Phone Unavailable Primary Care Provider Unavailabl e Encounter Details Date Type Department Care Team (Late st Contact Info) Description 01/16/2025 External Device Data [facility] ABSTRACTION Provider, Abstract NO ADDRESS ON FILE Social History Tobacco Use Types Packs/Day Years Used Date Smoking Tobacco: Never Smokeless Tobacco: Never Alcohol Use Standard Drinks/Week Comments Yes 0 (1 standard drink = 0.6 oz pur e alcohol) occasional Comments Unknown Sex and Gender Information Value Date Recorded Sex Assigned at Not on file Legal Sex Female 5:57 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
--- OUTSIDE RECORDS SUMMARY | 2025-01-16 07:59 | XMS_ITS | Clinical Summary ---
Author Organization [facility] Address [address] [place] [address] Care Team Providers Care Field Service Representative Name Role Phone Stanislaw Sarmiento MD Primary Care Provider Unavailabl e Source Comments [facility],non-owned Affiliates and Associated Physician Practices is amultiple site organization consisting of ambulatory clinics and hospital sitesin [place], [place], [place] and [place]. This disclosure is being madepursuant to the Care Everywhere program and may not contain all information available regarding this patient. Last updated 18.[facility] Allergies No known active allergies Medications * [...] on file Legal Sex Female 7:02 AM LOGISTICS/SHIPPER Gender Identity Not on file Sexual Orientation Not on file Last Filed Vital Signs Vital Sign Reading Time Taken Comments Blood Pressure 112/70 07/25/2012 11:48 AM LOGISTICS/SHIPPER Pulse 70 07/25/2012 11:48 AM LOGISTICS/SHIPPER Temperature - - Respiratory Rate 14 07/25/2012 11:48 AM LOGISTICS/SHIPPER Oxygen Saturation - - Inhaled Oxygen Concentration - - Weight 81.2 kg (179 lb) 07/25/2012 11:48 AM LOGISTICS/SHIPPER Height 167.6 cm (5' 6 ) 07/25/2012 11:48 AM LOGISTICS/SHIPPER Body Mass Index 28.89 07/25/2012 11:48 AM LOGISTICS/SHIPPER Plan of Treatment Health Maintenance Due Date [...] Comments LIPID PROFILE Routine 09/15/2012 8:51 AM LOGISTICS/SHIPPER Screening for lipoid disorders from Last 3 Months or Most Recently Relevant to Health Maintenance Results * LIPID PROFILE (09/15/2012 8:51 AM LOGISTICS/SHIPPER) Cholesterol 161 125 - 200 mg/dL [facility] Comment: Test Performed at: [facility] [address] [place] [address] ROLANDO CLIFFORD DO,MPH HDL Cholesterol 62 > [...] BLOOD SPECIMEN / Unknown 09/15/2012 8:51 AM LOGISTICS/SHIPPER 09/15/2012 8:51 AM LOGISTICS/SHIPPER Stanislaw Sarmiento MD LAB - CHEMISTRY ORDERABLES Final Result [id number] [place] [address] from Last 3 Months or Most Recently Relevant to Health Maintenance Insurance [facility] SELF PAY NO INSURANCE Member Subscriber Plan / Payer (Ef fective for All Dates) Name:Gisele Chandler Member ID:Not on file Relation to Subscriber:Not on file Name:GISELE CHANDLER Subscriber ID:Not on file (Home) Address: [address] [place] [address] Payer ID:Not on file Group ID:Not on file Type:Self Pay Address: [facility] Care Teams Field Service Representative Relationship Specialty Start Date End Date Stanislaw Sarmiento MD Updated address needed PCP - General 09/30/09
--- OUTSIDE RECORDS SUMMARY | 2025-01-16 08:04 | XMS_ITS | Referral Summary ---
Author Organization [facility] [address] [employer] Address [address] [place] [address] Care Team Providers Care Pharmacy Picking Tech Name Role Phone Douglas Flores MD Primary Care Provider [phone] Allergies No known active allergies Medications cetirizine [...] on file Legal Sex Female 3:10 PM STONE SETTER Gender Identity Not on file Sexual Orientation Not on file Last Filed Vital Signs Vital Sign Reading Time Taken Comments Blood Pressure - - Pulse - - Temperature 36.6 C (97.8 F) 09/10/2020 8:27 AM STONE SETTER Respiratory Rate - - Oxygen Saturation - - Inhaled Oxygen Concentration - - Weight 90.7 kg (200 lb) 09/10/2020 8:27 AM STONE SETTER Height 167.6 cm (5' 6 ) 09/10/2020 8:27 AM STONE SETTER Body Mass Index 32.28 09/10/2020 8:27 AM STONE SETTER Plan of Treatment Not on file Insurance [place] Care Teams Pharmacy Picking Tech Relationship Specialty Start Date End Date Douglas Flores MD [address] [place] [address] PCP - General Internal Medicine 09/02/20
== END 2025-01-16 07:38 | disposition home or self-care (01) ==
PROVIDERS: PCP Physician Assistant Medical; Visit Provider Internal Medicine Hematology & Oncology
DX: C50.911 Malignant neoplasm of unspecified site of right female breast (principal); C77.3 Secondary and unspecified malignant neoplasm of axilla and upper limb lymph nodes
CPT/HCPCS: 93306

== ENCOUNTER 2025-01-17 11:07 | Outpatient (CLI) | payer BC, SELFPAY ==
--- NOTE | ~2025-01-17 | CT_ITS ---
CT chest abdomen pelvis w con Ordering provider: Manuel Bowman MD History: 44 years Female with . breast cancer metastasized to axillary lymph node, right . Comparison: April 19, 2016 Technique: CT chest with IV contrast. CT abdomen and pelvis CT abdomen and pelvis with IV and with or al contrast. Radiation reduction technique utilized.The dose-length product was 1175.57 mGy-cm. 100 m L Omnipaque 350 was given IV. FINDINGS: CHEST: Left Port-A-Cath is noted with the tip in the superior vena cava. --VISUALIZED THORACIC INLET: Right axillary lymph nodes are seen with the largest measures 2.3 x 1.7 cm and 2.2 x 1.6 cm. --MEDIASTINUM: Aorta/coronary arteries: The thoracic aorta is normal. Heart/other: The heart is not enlarged. Lymph nodes: No mediastinal or hilar adenopathy. --LUNGS: Bilateral dependent atelectatic changes. Small groundglass nodule seen in the right upper lo be measuring 7 mm.Nodule in the right lower lobe is also noted measuring 6 x 7 mm. No pulmonary odessa s. No infiltrates or effusions. No pneumothorax. --MUSCULOSKELETAL: Soft tissues: The superficial soft tissues are normal. Bones: Age appropriate degenerative changes of the spine. No suspicious bony lytic or sclerotic lesio ns. ABDOMEN/PELVIS: --MUSCULOSKELETAL: Bones: Age appropriate degenerative changes of the spine. No suspicious bony lytic or sclerotic lesio ns. Superficial soft tissues: The superficial soft tissues are normal. --UPPER ABDOMINAL ORGANS: Liver: Dilated intrahepatic bile ducts. Gallbladder: Status post cholecystectomy. Spleen: Normal. Stomach/duodenum: Normal. Pancreas: Focal fat containing area in the head of the pancreas unchanged from previous examination. Adrenals: Normal. Kidneys: Tiny cyst in the left kidney upper pole. --PELVIC ORGANS: The bladder shows thickened wall which may indicate cystitis.. No bladder stones. Uterus: Irregular outline with multiple hypodensities are seen which may indicate masses. Irregularit y in the area of the cervix also seen. Further evaluation advised. Right ovarian cyst or a less likel y necrotic lymph node is seen in the right iliac artery smaller one is also seen which measures 1.2 c m. area. --BOWEL AND MESENTERY: Colon: No evidence of diverticulitis.. Normal appendix. Small Bowel: Normal. No obstruction. Peritoneum/mesentery: No free air. Trace of free fluid in the pelvis. No mesenteric lymphadenopathy. --RETROPERITONEUM: Normal aorta. No retroperitoneal lymphadenopathy. IMPRESSION: CHEST: 1. Right axillary enlarged lymph nodes. 2. Ground glass appearance nodule in the right upper lobe. 3. Nodule in the right lower lobe measuring 7 mm. This may be metastatic. Follow-up advised. 4. No acute cardiopulmonary pathology. ABDOMEN/PELVIS: 1. Intrahepatic biliary dilatation. 2. No evidence of appendicitis, diverticulitis or intestinal obstruction. 3. Heterogenous density areas in the uterus which may indicate masses. Further evaluation advised. 4. Highly suggestive necrotic lymph nodes in the right iliac area although one of them may be an ova eloisa cyst. Further evaluation advised. Reviewed, dictated and finalized at location A. IMPRESSION: CHEST: 1. Right axillary enlarged lymph nodes. 2. Ground glass appearance nodule in the right upper lobe. 3. Nodule in the right lower lobe measuring 7 mm. This may be metastatic. Foll ow-up advised. 4. No acute cardiopulmonary pathology. ABDOMEN/PELVIS: 1. Intrahepatic biliary dilatation. 2. No evidence of appendicitis, diverticulitis or intestinal obstruction. 3. Heterogenous density areas in the uterus which may indicate masses. Further evaluation advised. 4. Highly suggestive necrotic lymph nodes in the right iliac area although one of them may be an ovarian cyst. Further evaluation advised.
--- OUTSIDE RECORDS SUMMARY | 2025-01-17 11:11 | XMS_ITS | Encounter Summary ---
Author Organization [facility] [employer] [facility] Address [address] [place] [address] Care Team Providers Care Mop Worker Name Role Phone Unavailable Primary Care Provider Unavailabl e Reason for Visit * Reason Onset Date Comments Anxiety 01/16/2025 Encounter Details Date Type Department Care Team (Late st Contact Info) Description 01/16/2025 Telephone [facility] Oncology and Hematology - Keegan [address] [facility] [address] [place] [address] Manuel Bowman MD [address] [facility] [address] [place] [address] Anxiety Social History Tobacco Use Types Packs/Day Years Used Date Smoking Tobacco: Never Smokeless Tobacco: Never Alcohol Use Standard Drinks/Week Comments Yes 0 (1 standard drink = 0.6 oz pur e alcohol) occasional Comments Unknown Sex and Gender Information Value Date Recorded Sex Assigned at Not on file Legal Sex Female 5:57 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 * Telephone Encounter - Alanna Mauricio - 01/16/2025 7:26 AM CDT ----- Message from Dr. Manuel Bowman sent at 01/15/2025 5:26 PM CDT ----- Regarding: RE: Pet Scan I have ordered ----- Message ----- From: Alanna Mauricio Sent: 01/14/2025 3:45 PM CDT To: Manuel Bowman MD Subject: Pet Scan Patient came in today and wanted to know if she could get something for her Pet Scan. She is very claustrophobic. For her MRI she was given 2 Ativan. She has her Pet Scan on . documented in this encounter Plan of Treatment Upcoming Encounters Date Type Department Care Team (Late st Contact Info) Description 01/17/2025 4:30 PM CDT Telephone Check Up [facility] Oncology and Hematology - [place] [address] [place] [address] [facility] [address] [place] [address] Manuel Bowman MD [address] [facility] [address] [place] [address] documented as of this encounter Visit Diagnoses Not on filedocumented in this encounter
--- OUTSIDE RECORDS SUMMARY | 2025-01-17 11:11 | XMS_ITS | Encounter Summary ---
Author Organization [facility] Address [address] [place] [address] Care Team Providers Care Ammonia Refrigeration Technician Name Role Phone Unavailable Primary Care Provider Unavailabl e Reason for Referral * Eval and Treat (Routine) - Open Specialty Diagnoses / Procedures Referred By Contac t Referred To Contact Oncology Diagnoses Breast cancer metastasized to axillary lymph node, right (CMS/HCC) Procedures TX OFFICE/OUTPATIENT ESTABLISHED MOD MDM 30 MIN TX OFFICE/OUTPATIENT NEW MODERATE MDM 45 MINUTES Manuel Bowman MD [address] [address] Phone: tel: fax: Referral ID Status Reason Start Date Expiration Date V isits Requested Visits Authorized [id number] Open STL CTS 01/09/2025 01/10/2026 1 1 * Echocardiography (Routine) - Closed Specialty Diagnoses / Procedures Referred By Contac t Referred To Contact Diagnoses Breast cancer metastasized to axillary lymph node, right (CMS/HCC) Procedures ECHO COMPLETE - CONTRAST AND STRAIN IF INDICATED ECHO COMPLETE - CONTRAST AND STRAIN IF INDICATED TX ECHO TTHRC R-T 2D W/WOM-MODE COMPL SPEC&COLR D TX MYOCRD STRAIN IMG SPECKLE TRCK ASSMT MYOCRD [facility] TX TTE W OR WO FOL WCON,DOPPLER Manuel Bowman MD [address] [place] [address] Phone: tel: fax: [place] [address] [place] [address] Phone: tel: fax: Referral ID Status Reason Start Date Expiration Date V isits Requested Visits Authorized [id number] Closed STL CTS 01/14/2025 03/14/2025 1 1 * PET Scan (Routine) - Denied Specialty Diagnoses / Procedures Referred By Contac t Referred To Contact Diagnoses Breast cancer metastasized to axillary lymph node, right (CMS/HCC) Procedures PET TUMOR OR INFECTION IMG W CT SKB Manuel Bowman MD [address] [address] Phone: tel: fax: [address] [address] Phone: tel: fax: Referral ID Status Reason Start Date Expiration Date V isits Requested Visits Authorized [id number] Denied STL CTS 01/09/2025 02/09/2026 1 0 Reason for Visit * Reason Comments Establish Care Cancer Encounter Details Date Type Department Care Team (Late st Contact Info) Description 01/09/2025 2:00 PM CDT Office Visit [facility] Oncology and Hematology - [place] [address] [place] [address] [address] [place] [address] Manuel Bowman MD [address] [facility] [address] [place] [address] Breast cancer metastasized to axillary lymph node, right (CMS/HCC) (Primary Dx) Social History Tobacco Use Types Packs/Day Years Used Date Smoking Tobacco: Never Smokeless Tobacco: Never Alcohol Use Standard Drinks/Week Comments Yes 0 (1 standard drink = 0.6 oz pur e alcohol) occasional Comments Unknown Sex and Gender Information Value Date Recorded Sex Assigned at Not on file Legal Sex Female 5:57 AM MANAGER CASE MANAGEMENT Gender Identity Not on file Sexual Orientation Not on file documented as of this encounter Last Filed Vital Signs Vital Sign Reading Time Taken Comments Blood Pressure 113/77 01/09/2025 1:51 PM CDT Pulse 104 01/09/2025 1:51 PM CDT Temperature 36.8 C (98.3 F) 01/09/2025 1:51 PM CDT Respiratory Rate 15 01/09/2025 1:51 PM CDT Oxygen Saturation 98% 01/09/2025 1:51 PM CDT Inhaled Oxygen Concentration - - Weight 90.6 kg (199 lb 12.8 oz) 01/09/2025 1:51 PM CDT Height - - Body Mass Index - - documented in this encounter Progress Notes * Manuel Bowman MD - 01/09/2025 6:03 PM CDT Hematology-oncology consult Note Requesting Physician Iraida Steve MD Primary Care Physician No primary care provider on file. Problem list Patient Active Problem List Diagnosis Code Chyst 07/18 Z90.710 D.I.C. (disseminated intravascular coagulation) Hemorrhage after delivery of fetus O72.1 Hypovolemia E86.1 Protein calorie malnutrition E46 Leukocytosis D72.829 Previous TREATMENT ? Measurable Disease ? Reason for Visit Gisele Chandler is a 44 y.o. female who was referred for consultation for triple positive breast cancer. History of present illness This is a pleasant 44-year-old premenopausal female who has been in good health except history of migraine, depression and tachycardia developed infection in the right nipple in August 2024. According to patient she has been dealing with rash around the right nipple off-and-on for the last 3 years duration. Patient had right breast limited ultrasound done on October 03, 2024 that showed no abscess. Ultrasound from December 20, 2024 showed multiple cyst in the right breast along with 6 mm mass at 6 o'clock position 2 cm from the nipple. Biopsy was recommended. Patient had biopsy done on December 17, 2024. That showed ER/TX positive HER2/elizabeth positive with Ki-67 of more than 20% invasive d uctal carcinoma status post shave biopsy of the right nipple skin. 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 DCIS was not found. Patient had bilateral breast MRI done on January 04, 2025 showedmultiple irregular shaped masses in the lower inner and lower central aspect of the right breast consistent with multifocal breast cancer with right axillary lymphadenopathy. Right axillary lymph node measures 4.9 x 3 x 1.8 cm. Mass in the lower inner quadrant of the right breast was 2.1 x 1.3 x 0.8 cm with additional mass in the lower central aspect of the right breast 1.6 x 1.6 x 0.6 cm. Left breast showed no disease. 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 Patient has a family history of prostate cancer in the brother at ageof 40. She denies any weight loss. Denies any bone pain. Denies any other new complaints. Past Medical History Past Medical History: Diagnosis Date Depression no meds. now Hx of migraines Malignant neoplasm (CMS/HCC) Surgical History Past Surgical History: Procedure Laterality Date HX CHOLECYSTECTOMY 2001 HX CYST REMOVAL from back 2004 HX KNEE ARTHROSCOPY L knee 1997 1998 HX WISDOM TEETH EXTRACTION 1989 TX DELIVERY ONLY 07/18/2010 SECTION performed by ROSALIE MALIN at [facility] L&D TX TOTAL ABDOMINAL HYSTERECT W/WO RMVL TUBE OVARY 07/18/2010 HYSTERECTOMY ABDOMINAL performed by ROSALIE MALIN at [facility] OR MAIN Medications Current Outpatient Medications Medication Sig Dispense Refill desvenlafaxine succinate (PRISTIQ) 25 mg Tablet Sustained Release 24HR Extended Release 24 hour tablet Take 1 Tablet by mouth daily. amitriptyline (ELAVIL) 25 mg tablet Take 25 mg by mouth daily at bedtime. No current facility-administered medications for this visit. Allergies No Known Allergies Immunizations: Immunization History Administered Date(s) Administered (M-M-R II/PRIORIX)(12 MO UP)MEASLES, MUMPS AND RUBELLA VIRUS VACCINE, 0.5 ML IM/SUBCUT 10/16/1999, 07/19/2010 Hepatitis B Vaccine 10/16/1999, 08/27/2000, 04/07/2001 Family History Family History Problem Relation Name Age of Onset Skin Cancer Father No Known Problems Mother Prostate Cancer Brother No Known Problems Brother No Known Problems Child No Known Problems Child Adopted No Known Problems Child Adopted Social History Social History Tobacco Use Smoking status: Never Smokeless tobacco: Never Substance Use Topics Alcohol use: Yes Comment: occasional Review of Systems Constitutional: Patient did not mention fever; no night sweats; no anorexia; no weight loss; no fatique NEENT: Patient did not mention headache; no change in vision; no change in hearing; no sore throat;no dysphagia Respiratory: Patient did not mention shortness of breath; no pleuritic chest pain; no cough; no hemoptysis Cardiac: Patient did not mention cardiac-like chest pain; no palpitations; no orthopnea; no PND; noDOE Breasts: Patient did not mention tenderness; no masses GI: Patient did not mention abdominal pain; no nausea; no vomiting; no diarrhea; no hematochezia; no melena : Patient did not mention dysuria; no frequency; no hesitancy; no hematuria MACHINE TRIMMER: Musculosketetal: Patient did not mention bone pain; no arthralgia; no joint swelling; no myalgia; Skin: Patient did not mention pruritis; no rash; no petechiae; no ecchymoses Endocrine: Patient did not mention polydipsia; no polyuria; no unusual weight gain Neuro: Patient did not mention headache; no change in vision; no sensory changes; no muscle weakness; no confusion; no seizures Psych: Patient did not mention anxiety; no depression; Physical Exam Vitals: As per nursing note Constitutional: Well developed, well nourished, no acute distress, non-toxic appearance Teeth and gum. No signs of infection or swelling. Eyes: PERRL, conjunctiva normal HEENT: Atraumatic, external ears normal, nose normal, oropharynx moist, no pharyngeal exudates. no sinus tenderness Neck- normal range of motion, no tenderness, supple Respiratory: No respiratory distress, normal breath sounds, no rales, no wheezing Breasts: Palpable right axillary lymph node. No appreciable mass was palpable on breast examination. Cardiovascular: Normal rate, normal rhythm, no murmurs, no gallops, no rubs GI: Soft, nondistended, normal bowel sounds, nontender, no splenomegaly, no hepatomegaly, no mass, no rebound, no guarding : No costovertebral angle tenderness Musculoskeletal: No edema, no tenderness, no deformities. Back- no tenderness Integument: Well hydrated, no rash, Digits and nails inspection normal Lymphatic: No lymphadenopathy noted Neurologic: Alert & oriented x 3, CN 2-12 normal, normal motor function, normal sensory function, no focal deficits noted Psychiatric: Speech and behavior appropriate ? labs No results found for this or any previous visit (from the past 24 hours). Pathology ? Imaging & Other Studies Performance Status? Performance status 0 Assessment / Plan: ? T4b N1MX stage IIIB invasive ductal carcinoma of the right breast status post right nipple skin lesion shave biopsy done on December 17, 2024. ER/TX positive HER2/elizabeth positive with Ki-67 more than 20%. 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 Patient had bilateral breast MRI done on January 04, 2025 showed multiple irregular shaped masses in the lower inner and lower central aspect of the right breast consistent with multifocal breast cancer with right axillary lymphadenopathy. Right axillary lymph node measures 4.9 x 3 x 1.8 cm. Mass in the lower inner quadrant of the right breast was 2.1 x 1.3 x 0.8 cm with additional mass in the lower central aspect of the right breast 1.6 x 1.6 x 0.6 cm. I have discussed the NCCN guideline regarding management of HER2/elizabeth positive lymph node positive breast cancer. Patient is scheduled to have lymph node biopsy. I will order the PET scan. She is also scheduled for Mediport placement. Patient is planning to have bilateral mastectomy. I will order emotherapy teaching for TCH Perjeta as well as echocardiogram. My plan is to perform preoperative chemotherapy with TCH Perjeta for 6 cycles. I have discussed the chemotherapy cycle and side effects in detail. She will also receive maintenance treatment with Herceptin Perjeta for total of 18 treatments and endocrine therapy with tamoxifen after surgery. Radiation therapy treatment will be based on the outcome of surgery. I am planning to start chemotherapy hopefully next 7 to 10 days. Follow-upwith me with cycle #2 of chemotherapy but I will discuss the PET scan next week on the phone visit.I have answered all the questions the patient and 's satisfaction. Migraine. Patient is on amitriptyline. Depression. Patient is on Pristiq. Thank you very much for allowing me to participate in Gisele Chandler's evaluation and management. Please feel free to contact if I can be of any further assistance in your patient???s care requiring hematology or oncology evaluation. Sincerely, ? ? aMnuel Bowman M.D. cell TOBACCO COUNSELING She is not a tobacco/nicotine user. Manuel Bowman MD ,01/09/2025 6:03 PM ? Total time spent 60 minutes, two third of the total time spent counseling patient [id number]. CC:?Iraida Steve MD documented in this encounter Plan of Treatment Upcoming Encounters Date Type Department Care Team (Late st Contact Info) Description 01/17/2025 4:30 PM CDT Telephone Check Up [facility] Oncology and Hematology [facility] [address] [facility] [address] [place] [address] Manuel Bowman MD [address] [facility] [address] [place] [address] Scheduled Orders Name Type Priority Associated Diagnoses Orde r Schedule PET TUMOR OR INFECTION IMG W CT SKB MDTH Imaging Routine Breast cancer metastasized to axillary lymph node, right (CMS/HCC) Expected: 01/10/2025, Expires: 01/09/2026 ECHO COMPLETE - CONTRAST AND STRAIN IF INDICATED Echocardiogram Routine Breast cancer metastasized to axillary lymph node, right (CMS/HCC) 1 Occurrences starting 01/09/2025 until 03/11/2026 Scheduled Referrals Name Type Priority Associated Diagnoses Orde r Schedule AMB REFERRAL TO CHEMO TEACHING Outpatient Referral Routine Breast cancer metastasized to axillary lymph node, right (CMS/HCC) Ordered: 01/09/2025 documented as of this encounter Visit Diagnoses Diagnosis Breast cancer metastasized to axillary lymph node, right (CMS/HCC)- Primary documented in this encounter
--- OUTSIDE RECORDS SUMMARY | 2025-01-17 11:11 | XMS_ITS | Clinical Summary ---
Author Organization [facility] Address [address] [place] [address] Phone Care Team Providers Care Consulting Intern Name Role Phone Unavailable Primary Care Provider [...] Encounters Date Type Department Care Team Description 01/17/2025 Orders Only [facility] Oncology and Hematology - [place] [address] [place] [address] Manuel Bowman MD Breast cancer metastasized to axillary lymph node, right (CMS/HCC) (Primary Dx) 01/17/2025 Telephone [facility] Oncology and Hematology - [place] [address] [place] [address] Manuel Bowman MD STAT CT 01/16/2025 Telephone [facility] Oncology and Hematology - [place] [address] [place] [address] Manuel Bowman MD Project Buyer Encounter 01/16/2025 Orders Only [facility] Oncology and Hematology - [place] [address] [place] [address] Manuel Bowman MD 01/16/2025 Telephone [facility] Oncology and Hematology - [place] [address] [place] [address] Manuel Bowman MD Anxiety 01/16/2025 External Device Data STL ABSTRACTION Provider, Abstract 01/15/2025 Orders Only [facility] Oncology and Hematology - [place] [address] [place] [address] Manuel Bowman MD Anxiety state (Primary Dx) 01/09/2025 2:00 PM CDT Office Visit [facility] Oncology and Hematology [facility] [address] [place] [address] Manuel Bowman MD Breast cancer metastasized to [...] on file Legal Sex Female 5:57 AM CERTIFIED 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 [address] [place] [address] Manuel Bowman MD [address] [facility] [address] [place] [address] Health Maintenance Due Date Last [...] Procedure Name Priority Date/Time Associated Diagnosis Comments ECHO COMPLETE Routine 01/16/2025 1:45 PM CDT from Last 3 Months Results * ECHO COMPLETE (01/16/2025 1:45 PM CDT) Manuel Bowman MD ECHO ORDERABLES Final Result from Last 3 Months Insurance [employer] CHO[employer] CHOICE Advance Directives For more information, please contact: [phone] * Full Code (Latest Code Status on [...]
--- OUTSIDE RECORDS SUMMARY | 2025-01-17 11:11 | XMS_ITS | Referral Summary ---
Author Organization [facility] [address] Address [address] [place] [address] Care Team Providers Care Electrical Mechanical Technician Name Role Phone Douglas Flores MD Primary Care Provider [phone] Allergies No known active allergies Medications cetirizine [...] on file Legal Sex Female 3:10 PM YARD ENGINEER Gender Identity Not on file Sexual Orientation Not on file Last Filed Vital Signs Vital Sign Reading Time Taken Comments Blood Pressure - - Pulse - - Temperature 36.6 C (97.8 F) 09/10/2020 8:27 AM YARD ENGINEER Respiratory Rate - - Oxygen Saturation - - Inhaled Oxygen Concentration - - Weight 90.7 kg (200 lb) 09/10/2020 8:27 AM YARD ENGINEER Height 167.6 cm (5' 6 ) 09/10/2020 8:27 AM YARD ENGINEER Body Mass Index 32.28 09/10/2020 8:27 AM YARD ENGINEER Plan of Treatment Not on file [place] Care Teams Electrical Mechanical Technician Relationship Specialty Start Date End Date Douglas Flores MD [address] [place] [address] PCP - General Internal Medicine 09/02/20
--- OUTSIDE RECORDS SUMMARY | 2025-01-17 11:11 | XMS_ITS | Clinical Summary ---
Author Organization [facility] [address] Address [address] [place] [address] Care Team Providers Care Programming Instructor Name Role Phone Douglas Flores MD Primary Care Provider [phone] Allergies No known active allergies Medications cetirizine [...] on file Legal Sex Female 3:10 PM HAND ENDBAND CUTTER Gender Identity Not on file Sexual Orientation Not on file Obstetrics History Last Filed Vital Signs Vital Sign Reading Time Taken Comments Blood Pressure - - Pulse - - Temperature 36.6 C (97.8 F) 09/10/2020 8:27 AM HAND ENDBAND CUTTER Respiratory Rate - - Oxygen Saturation - - Inhaled Oxygen Concentration - - Weight 90.7 kg (200 lb) 09/10/2020 8:27 AM HAND ENDBAND CUTTER Height 167.6 cm (5' 6 ) 09/10/2020 8:27 AM HAND ENDBAND CUTTER Body Mass Index 32.28 09/10/2020 8:27 AM HAND ENDBAND CUTTER Plan of Treatment Not on file Insurance BLUE [facility] BL CHOICE [place] PPO [place] Care Teams Programming Instructor Relationship Specialty Start Date End Date Douglas Flores MD [address] [place] [address] PCP - General Internal Medicine 09/02/20
--- OUTSIDE RECORDS SUMMARY | 2025-01-17 11:11 | XMS_ITS | Encounter Summary ---
Author Organization [facility] [employer] [facility] Address [address] [place] [address] Care Team Providers Care Plate Cleaner Name Role Phone Unavailable Primary Care Provider Unavailabl e Encounter Details Date Type Department Care Team (Late Contact Info) Description 01/16/2025 Orders Only [facility] Oncology and Hematology - [place] [address] [place] [address] Manuel Bowman MD [address] [employer] [address] [place] [address] Social History Tobacco Use Types Packs/Day Years Used Date Smoking Tobacco: Never Smokeless Tobacco: Never Alcohol Use Standard Drinks/Week Comments Yes 0 (1 standard drink = 0.6 oz pur e alcohol) occasional Comments Unknown Sex and Gender Information Value Date Recorded Sex Assigned at Not on file Legal Sex Female 5:57 AM TORPEDO SHOOTER Gender Identity Not on file Sexual Orientation Not on file documented as of this encounter Plan of Treatment Upcoming Encounters Date Type Department Care Team (Late Contact Info) Description 01/17/2025 4:30 PM CDT Telephone Check Up [facility] Oncology and Hematology - [place] [address] [place] [address] Manuel Bowman MD [address] [facility] [employer] [facility] [address] [place] [address] documented as of this encounter Procedures Procedure Name Priority Date/Time Associated Diagnosis Comments ECHO COMPLETE Routine 01/16/2025 1:45 PM CDT documented in this encounter Results * ECHO COMPLETE (01/16/2025 1:45 PM CDT) us Manuel Bowman MD ECHO ORDERABLES Final Result documented in this encounter Visit Diagnoses Not on filedocumented in this encounter
--- OUTSIDE RECORDS SUMMARY | 2025-01-17 11:11 | XMS_ITS | Encounter Summary ---
Author Organization [facility] Address [address] [place] [address] Care Team Providers Care Ocular Care Technologist Name Role Phone Unavailable Primary Care Provider [...] on file Legal Sex Female 5:57 AM LEGAL SPECIALIST Gender Identity Not on file Sexual Orientation Not on file documented as of this encounter Plan of Treatment Upcoming Encounters Date Type Department Care Team (Late st Contact Info) Description 01/17/2025 4:30 PM CDT Telephone Check Up [facility] Oncology and Hematology - [place] [address] [place] [address] Manuel Bowman MD [address] [facility] [address] [place] [address] documented as of this encounter Visit Diagnoses Not on filedocumented in this encounter
--- OUTSIDE RECORDS SUMMARY | 2025-01-17 11:11 | XMS_ITS | Encounter Summary ---
Author Organization [facility] [employer] [facility] Address [address] [place] [address] Care Team Providers Care Road Maker Name Role Phone Unavailable Primary Care Provider Unavailabl e Reason for Visit * Reason Onset Date Comments Wheelchair Rental Clerk Encounter 01/16/2025 Encounter Details Date Type Department Care Team (Late st Contact Info) Description 01/16/2025 Telephone [facility] Oncology and Hematology - [place] [address] [facility] [address] [address] Manuel Bowman MD [address] [facility] [address] [place] [address] Wheelchair Rental Clerk Encounter Social History Tobacco Use Types Packs/Day Years Used Date Smoking Tobacco: Never Smokeless Tobacco: Never Alcohol Use Standard Drinks/Week Comments Yes 0 (1 standard drink = 0.6 oz pur e alcohol) occasional Comments Unknown Sex and Gender Information Value Date Recorded Sex Assigned at Not on file Legal Sex Female 5:57 AM CV/CVN CV TSC 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 She is going to see what she can do and get back with me. Amna's number is [phone] documented in this encounter Plan of Treatment Upcoming Encounters Date Type Department Care Team (Late st Contact Info) Description 01/17/2025 4:30 PM CDT Telephone Check Up [facility] Oncology and Hematology - [place] [address] [facility] [address] [place] [address] Manuel Bowman MD [address] [facility] [address] [place] [address] documented as of this encounter Visit Diagnoses Not on filedocumented in this encounter
--- OUTSIDE RECORDS SUMMARY | 2025-01-17 11:11 | XMS_ITS | Encounter Summary ---
Author Organization [facility] [employer] [facility] Address [address] [place] [address] Care Team Providers Care Licensed Insurance Sales Agent Name Role Phone Unavailable Primary Care Provider Unavailabl e Reason for Visit * Reason Onset Date Comments STAT CT 01/17/2025 Encounter Details Date Type Department Care Team (Late st Contact Info) Description 01/17/2025 Telephone [facility] Oncology and Hematology - [place] [address] [facility] [address] [address] Manuel Bowman MD [address] [facility] [address] [place] [address] Social History Tobacco Use Types Packs/Day Years Used Date Smoking Tobacco: Never Smokeless Tobacco: Never Alcohol Use Standard Drinks/Week Comments Yes 0 (1 standard drink = 0.6 oz pur e alcohol) occasional Comments Unknown Sex and Gender Information Value Date Recorded Sex Assigned at Not on file Legal Sex Female 5:57 AM BREAK UP WORKER Gender Identity Not on file Sexual Orientation Not on file documented as of this encounter Miscellaneous Notes * Telephone Encounter - Alanna Mauricio - 01/17/2025 8:51 AM CDT Insurance denied patients Pet Scan. Spoke with Dr. Bowman and he is going to order a STAT CT Chest Abd Pelvis. We are going to get authorization and have her get it today. documented in this encounter Plan of Treatment Upcoming Encounters Date Type Department Care Team (Late st Contact Info) Description 01/17/2025 4:30 PM CDT Telephone Check Up [facility] Oncology and Hematology - [place] [address] [facility] [address] [place] [address] Manuel Bowman MD [address] [facility] [address] [place] [address] documented as of this encounter Visit Diagnoses Not on filedocumented in this encounter
--- OUTSIDE RECORDS SUMMARY | 2025-01-17 11:11 | XMS_ITS | Encounter Summary ---
Author Organization [facility] TYRON Wei [facility] Address [address] [place] [address] Care Team Providers Care Lease Picker Name Role Phone Unavailable Primary Care Provider Unavailabl e Reason for Referral * CT Scan (Urgent) - Closed Specialty Diagnoses / Procedures Referred By Contac t Referred To Contact Diagnoses Breast cancer metastasized to axillary lymph node, right (CMS/HCC) Procedures CT CHEST ABDOMEN PELVIS W CONT Manuel Bowman MD [address] [place] [address] Phone: tel: fax: [place] [phone] Referral ID Status Reason Start Date Expiration Date V isits Requested Visits Authorized [id number] Closed [facility] CTS 01/17/2025 02/17/2026 1 1 Encounter Details Date Type Department Care Team (Late st Contact Info) Description 01/17/2025 Orders Only [facility] Oncology and Hematology [facility] Mattie Fischer [facility] [address] [place] [address] Manuel Bowman MD [address] [place] [address] Breast cancer metastasized to axillary [...] on file Legal Sex Female 5:57 AM ADMINISTRATIVE COORDINATOR Gender Identity Not on file Sexual Orientation Not on file documented as of this encounter Plan of Treatment Upcoming Encounters Date Type Department Care Team (Late st Contact Info) Description 01/17/2025 4:30 PM CDT Telephone Check Up [facility] Oncology and Hematology - [place] [address] [place] [address] [facility] [address] [place] [address] Manuel Bowman MD [address] [facility] [address] [place] [address] Scheduled Orders Name Type Priority Associated Diagnoses Orde r Schedule CT CHEST ABDOMEN PELVIS W CONT Imaging Stat Breast cancer metastasized to axillary lymph node, right (CMS/HCC) 1 Occurrences starting 01/17/2025 until 01/17/2026 documented as of this encounter Visit Diagnoses Diagnosis Breast cancer metastasized to axillary lymph node, right (CMS/HCC)- Primary documented in this encounter
--- OUTSIDE RECORDS SUMMARY | 2025-01-17 11:11 | XMS_ITS | Clinical Summary ---
Author Organization [facility] Address [address] [place] [address] Care Team Providers Care Head Of Operation And Logistics Name Role Phone Stanislaw Sarmiento MD Primary Care Provider Unavailabl e Source Comments [facility],non-owned Affiliates and Associated Physician Practices is amultiple site organization consisting of ambulatory clinics and hospital sitesin [place], [place], [place] and [place]. This disclosure is being madepursuant to the Care Everywhere program and may not contain all information available regarding this patient. Last updated 18.[facility] Allergies No known active allergies Medications * [...] on file Legal Sex Female 7:02 AM HEAD BANQUET WAITER/WAITRESS Gender Identity Not on file Sexual Orientation Not on file Last Filed Vital Signs Vital Sign Reading Time Taken Comments Blood Pressure 112/70 07/25/2012 11:48 AM HEAD BANQUET WAITER/WAITRESS Pulse 70 07/25/2012 11:48 AM HEAD BANQUET WAITER/WAITRESS Temperature - - Respiratory Rate 14 07/25/2012 11:48 AM HEAD BANQUET WAITER/WAITRESS Oxygen Saturation - - Inhaled Oxygen Concentration - - Weight 81.2 kg (179 lb) 07/25/2012 11:48 AM HEAD BANQUET WAITER/WAITRESS Height 167.6 cm (5' 6 ) 07/25/2012 11:48 AM HEAD BANQUET WAITER/WAITRESS Body Mass Index 28.89 07/25/2012 11:48 AM HEAD BANQUET WAITER/WAITRESS Plan of Treatment Health Maintenance Due Date [...] Comments LIPID PROFILE Routine 09/15/2012 8:51 AM HEAD BANQUET WAITER/WAITRESS Screening for lipoid disorders from Last 3 Months or Most Recently Relevant to Health Maintenance Results * LIPID PROFILE (09/15/2012 8:51 AM HEAD BANQUET WAITER/WAITRESS) Cholesterol 161 125 - 200 mg/dL [facility] Comment: Test Performed at: [facility] [address] [place] [address] ROLANDO CLIFFORD DO,MPH HDL Cholesterol 62 > [...] BLOOD SPECIMEN / Unknown 09/15/2012 8:51 AM HEAD BANQUET WAITER/WAITRESS 09/15/2012 8:51 AM HEAD BANQUET WAITER/WAITRESS Stanislaw Sarmiento MD LAB - CHEMISTRY ORDERABLES Final Result [place] [id number] [place] [address] from Last 3 Months or Most Recently Relevant to Health Maintenance Insurance [facility] SELF PAY NO INSURANCE Member Subscriber Plan / Payer (Ef fective for All Dates) Name:Gisele Chandler Member ID:Not on file Relation to Subscriber:Not on file Name:GISELE CHANDLER Subscriber ID:Not on file (Home) Address: [address] [place] [address] Payer ID:Not on file Group ID:Not on file Type:Self Pay Address: [facility] Care Teams Head Of Operation And Logistics Relationship Specialty Start Date End Date Stanislaw Sarmiento MD Updated address needed PCP - General 09/30/09
== END 2025-01-17 11:08 | disposition home or self-care (01) ==
PROVIDERS: PCP Physician Assistant Medical; Visit Provider Internal Medicine Hematology & Oncology
DX: C50.911 Malignant neoplasm of unspecified site of right female breast (principal); C77.3 Secondary and unspecified malignant neoplasm of axilla and upper limb lymph nodes; K83.8 Other specified diseases of biliary tract
CPT/HCPCS: 71260; 74177; Q9967

== ENCOUNTER 2025-01-18 08:09 | Outpatient (CLI) | payer BC, SELFPAY ==
--- NOTE | ~2025-01-18 | US_ITS ---
EXAMINATION: US GUIDED NEEDLE BIOPSY WITH VACUUM ASSISTANCE DATE: 01/22/2025 7:28 CDT INDICATION: Right axillary lymphadenopathy. Ultrasound-guided core biopsy is requested to evaluate f or malignancy. BREAST PARENCHYMAL COMPOSITION: TECHNIQUE AND FINDINGS: The risks and potential benefits of the procedure were discussed with the patient, and written inform ed consent was obtained. After sterile preparation of the right axilla, 1% lidocaine was utilized fo r local anesthesia. 1% lidocaine with epinephrine was used for deep anesthesia. A 10G vacuum-assisted biopsy gun needle was advanced through to the outer edge of the region of inter est from a axillary approach utilizing sonographic guidance. A total of for tissue core samples were obtained through the lesion. An Inrad tissue marker clip was then placed at the biopsy site. Hemost asis was achieved. The patient tolerated procedure well and there was no evidence of immediate complication. The patien t was given verbal instructions partly is from the department. The tissue samples were submitted to surgical pathology for histologic analysis. IMPRESSION: 1. Successful ultrasound-guided vacuum-assisted biopsy of right axillary mass. Please refer to patho logy report for histologic analysis. Reviewed, dictated and finalized at location A. IMPRESSION: 1. Successful ultrasound-guided vacuum-assisted biopsy of right axillary mass. Please refer to pathology report for histologic analysis.
--- OUTSIDE RECORDS SUMMARY | 2025-01-18 08:15 | XMS_ITS | Clinical Summary ---
Author Organization [facility] [employer] Address [address] [place] [address] Care Team Providers Care Business Support Name Role Phone Douglas Flores MD Primary Care Provider [phone] Allergies No known active allergies Medications cetirizine [...] on file Legal Sex Female 3:10 PM DEWER Gender Identity Not on file Sexual Orientation Not on file Obstetrics History Last Filed Vital Signs Vital Sign Reading Time Taken Comments Blood Pressure - - Pulse - - Temperature 36.6 C (97.8 F) 09/10/2020 8:27 AM DEWER Respiratory Rate - - Oxygen Saturation - - Inhaled Oxygen Concentration - - Weight 90.7 kg (200 lb) 09/10/2020 8:27 AM DEWER Height 167.6 cm (5' 6 ) 09/10/2020 8:27 AM DEWER Body Mass Index 32.28 09/10/2020 8:27 AM DEWER Plan of Treatment Not on file Insurance [facility] BL CHOICE PRF PPO [place] Care Teams Business Support Relationship Specialty Start Date End Date Douglas Flores MD [address] [place] [address] PCP - General Internal Medicine 09/02/20
--- OUTSIDE RECORDS SUMMARY | 2025-01-18 08:15 | XMS_ITS | Encounter Summary ---
Author Organization [facility] Address [address] [place] [address] Care Team Providers Care Private Duty Rn Name Role Phone Unavailable Primary Care Provider Unavailabl e Encounter Details Date Type Department Care Team (Late Contact Info) Description 01/16/2025 Orders Only [facility] Oncology and Hematology - [place] [address] [place] [address] Manuel Bowman MD [address] [place] [address] Social History Tobacco Use Types Packs/Day Years Used Date Smoking Tobacco: Never Smokeless Tobacco: Never Alcohol Use Standard Drinks/Week Comments Yes 0 (1 standard drink = 0.6 oz pur e alcohol) occasional Comments Unknown Sex and Gender Information Value Date Recorded Sex Assigned at Not on file Legal Sex Female 5:57 AM CAN LABELER Gender Identity Not on file Sexual Orientation Not on file documented as of this encounter Plan of Treatment Upcoming Encounters Date Type Department Care Team (Late Contact Info) Description 02/14/2025 8:30 AM CDT Office Visit [facility] Oncology and Hematology - [place] [address] [place] [address] Manuel Bowman MD [address] [place] [address] documented as of this encounter Procedures Procedure Name Priority Date/Time Associated Diagnosis Comments ECHO COMPLETE Routine 01/16/2025 1:45 PM CDT documented in this encounter Results * ECHO COMPLETE (01/16/2025 1:45 PM CDT) us Manuel Bowman MD ECHO ORDERABLES Final Result documented in this encounter Visit Diagnoses Not on filedocumented in this encounter
--- OUTSIDE RECORDS SUMMARY | 2025-01-18 08:15 | XMS_ITS | Referral Summary ---
Author Organization [facility] [employer] Address [address] [place] [address] Care Team Providers Care Head Bander And Liner Operator Name Role Phone Douglas Flores MD Primary Care Provider [phone] Allergies No known active allergies Medications cetirizine [...] file Legal Sex Female 3:10 PM DRY CLEANING MANAGER Gender Identity Not on file Sexual Orientation Not on file Last Filed Vital Signs Vital Sign Reading Time Taken Comments Blood Pressure - - Pulse - - Temperature 36.6 C (97.8 F) 09/10/2020 8:27 AM DRY CLEANING MANAGER Respiratory Rate - - Oxygen Saturation - - Inhaled Oxygen Concentration - - Weight 90.7 kg (200 lb) 09/10/2020 8:27 AM DRY CLEANING MANAGER Height 167.6 cm (5' 6 ) 09/10/2020 8:27 AM DRY CLEANING MANAGER Body Mass Index 32.28 09/10/2020 8:27 AM DRY CLEANING MANAGER Plan of Treatment Not on file Insurance [place] [employer] [place] Care Teams Head Bander And Liner Operator Relationship Specialty Start Date End Date Douglas Flores MD [address] [place] [address] PCP - General Internal Medicine 09/02/20
--- OUTSIDE RECORDS SUMMARY | 2025-01-18 08:15 | XMS_ITS | Encounter Summary ---
Author Organization [facility] Address [address] [place] [address] Care Team Providers Care Testing Analyst Name Role Phone Unavailable Primary Care Provider Unavailabl e Encounter Details Date Type Department Care Team (Late st Contact Info) Description 01/17/2025 4:30 PM CDT Telephone Check Up [facility] Oncology and Hematology - [place] [address] [place] [address] [place] [phone] Manuel Bowman MD [address] [facility] [address] [place] [address] Arrived Social History Tobacco Use Types Packs/Day Years Used Date Smoking Tobacco: Never Smokeless Tobacco: Never Alcohol Use Standard Drinks/Week Comments Yes 0 (1 standard drink = 0.6 oz pur e alcohol) occasional Comments Unknown Sex and Gender Information Value Date Recorded Sex Assigned at Not on file Legal Sex Female 5:57 AM FLAP CURER Gender Identity Not on file Sexual Orientation Not on file documented as of this encounter Progress Notes * Manuel Bowman MD - 01/17/2025 4:18 PM CDT HEMATOLOGY / ONCOLOGY PROGRESS NOTE Patient Identification: Name: Gisele Chandler Age: 44 y.o. 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 ER/CO positive HER2/elizabeth positive with Ki-67 more than 20%. 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 CURRENT TREATMENT Expectant TREATMENT HISTORY SUBJECTIVE This is a phone visit with patient to discuss the CT scan finding. She has no new complaint since the last visit. Review of system Constitutional: Patient did not mention fevers, sweats, fatigue, malaise, weight loss HEENT: Patient did not mention sinus congestion, hearing or vision problems Respiratory: Patient did not mention cough, dyspnea, wheeze Cardiovascular: Patient did not mention chest pain, exertional chest pressure/discomfort, nausea, syncope, shortness of breath GI: Patient did not mention constipation, diarrhea, dsyphagia, reflux symptoms, vomiting, melena : Patient did not mention dysuria, frequency, incontinence, urgency Integumentary system: no lymphadenopathy, sweats, flushing Musculoskeletal: Patient not mention: myalgia, arthralgia Neurological: Patient did not mention blurry or disturbed vision, numbness/weakness, dizziness Skin: No lumps, bumps or rashes. Objective: Vital signs in last 24 hours: As per nursing note Exam: This is a phone visit LABS @IMAGEIMP@ Assessment: Plan: Patient Active Problem List Diagnosis Date Noted Protein calorie malnutrition 07/20/2010 Leukocytosis 07/20/2010 D.I.C. (disseminated intravascular coagulation) 07/19/2010 Hemorrhage after delivery of fetus 07/19/2010 Hypovolemia 07/19/2010 Chyst 07/1807/18/2010 T4b N1MX stage IIIB invasive ductal carcinoma of the right breast status post right nipple skin lesion shave biopsy done on December 17, 2024. ER/CO positive HER2/elizabeth positive with Ki-67 more than 20%. 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 CT scan chest abdomen pelvis done on January 17, 2025 showed 2.3 x 1.7 cm and 2.2 x 1.6 cm right axillary lymph node. There is a 6 x 7 mm right lower lobe nodule and 7 mm right upper lobe ground glass nodule. There is a 6.7 cm mass in the uterus. Patient had hysterectomy done in 2009. I have discussed this finding with radiologist Dr. Bimal Helms today. He believes this mass was present in 2015 imaging studies but was slightly smaller at 6.4 cm. This thing it could be the mass at the cervical cuff. He recommended gynecology direct visualization. I refer her to call her environmental engineering aide. Will proceed with chemotherapy this coming week. Echocardiogram showed normal ejection fraction. I will see her back with cycle #2 of chemotherapy with LIA Perdomo in 4 weeks. Depression. She is on Pristiq. Migraine. Patient is on amitriptyline. ? TOBACCO COUNSELING She is not a tobacco/nicotine user. 01/17/2025 Manuel Bowman MD Patient's identity confirmed yes Patient gave verbal consent to have these services billed to their insurance and expressed understanding that co-insurance and deductible may apply: yes Patient was located This encounter was completed via two-way synchronous audio only communication. Video technology available to provider, but patient not capable of, or doesn't consent to, use of video. Time spent in discussion with patient: 25 minutes. 20} documented in this encounter Plan of Treatment Upcoming Encounters Date Type Department Care Team (Late st Contact Info) Description 02/14/2025 8:30 AM CDT Office Visit [facility] Oncology and Hematology - [place] [address] [facility] [address] [place] [address] Manuel Bowman MD [address] [facility] [address] [place] [address] documented as of this encounter Visit Diagnoses Not on filedocumented in this encounter
--- OUTSIDE RECORDS SUMMARY | 2025-01-18 08:15 | XMS_ITS | Clinical Summary ---
Author Organization [facility] Address [address] [place] [address] Care Team Providers Care Effervescent Salts Compounder Name Role Phone Stanislaw Sarmiento MD Primary Care Provider Unavailabl e Source Comments [facility],non-owned Affiliates and Associated Physician Practices is amultiple site organization consisting of ambulatory clinics and hospital sitesin [place], [place], [place] and [place]. This disclosure is being madepursuant to the Care Everywhere program and may not contain all information available regarding this patient. Last updated 18.[facility] Allergies No known active allergies Medications * [...] on file Legal Sex Female 7:02 AM MAKING LINE WORKER Gender Identity Not on file Sexual Orientation Not on file Last Filed Vital Signs Vital Sign Reading Time Taken Comments Blood Pressure 112/70 07/25/2012 11:48 AM MAKING LINE WORKER Pulse 70 07/25/2012 11:48 AM MAKING LINE WORKER Temperature - - Respiratory Rate 14 07/25/2012 11:48 AM MAKING LINE WORKER Oxygen Saturation - - Inhaled Oxygen Concentration - - Weight 81.2 kg (179 lb) 07/25/2012 11:48 AM MAKING LINE WORKER Height 167.6 cm (5' 6 ) 07/25/2012 11:48 AM MAKING LINE WORKER Body Mass Index 28.89 07/25/2012 11:48 AM MAKING LINE WORKER Plan of Treatment Health Maintenance Due Date [...] Comments LIPID PROFILE Routine 09/15/2012 8:51 AM MAKING LINE WORKER Screening for lipoid disorders from Last 3 Months or Most Recently Relevant to Health Maintenance Results * LIPID PROFILE (09/15/2012 8:51 AM MAKING LINE WORKER) Cholesterol 161 125 - 200 mg/dL [facility] Comment: Test Performed at: [facility] [address] [place] [address] ROLANDO CLIFFORD DO,MPH HDL Cholesterol 62 > [...] BLOOD SPECIMEN / Unknown 09/15/2012 8:51 AM MAKING LINE WORKER 09/15/2012 8:51 AM MAKING LINE WORKER Stanislaw Sarmiento MD LAB - CHEMISTRY ORDERABLES Final Result [place] [address] [id number] [place] [address] from Last 3 Months or Most Recently Relevant to Health Maintenance Insurance [facility] SELF PAY NO INSURANCE Member Subscriber Plan / Payer (Ef fective for All Dates) Name:Gisele Chandler Member ID:Not on file Relation to Subscriber:Not on file Name:GISELE CHANDLER Subscriber ID:Not on file (Home) Address: [address] [place] [address] Payer ID:Not on file Group ID:Not on file Type:Self Pay Address: [facility] Care Teams Effervescent Salts Compounder Relationship Specialty Start Date End Date Stanislaw Sarmiento MD Updated address needed PCP - General 09/30/09
--- OUTSIDE RECORDS SUMMARY | 2025-01-18 08:15 | XMS_ITS | Clinical Summary ---
Author Organization [facility] Address [address] [place] [address] Phone Care Team Providers Care Machine Tack Puller Name Role Phone Unavailable Primary Care Provider [...] Date Type Department Care Team Description 01/17/2025 4:30 PM CDT Telephone Check Up [facility] Oncology and Hematology - [place] [address] [place] [address] Manuel Bowman MD Arrived 01/17/2025 Orders Only [facility] Oncology and Hematology - [place] [address] [place] [address] Manuel Bowman MD Breast cancer metastasized to axillary lymph node, right (CMS/HCC) (Primary Dx) 01/17/2025 Telephone [facility] Oncology and Hematology [facility] [address] [place] [address] Manuel Bowman MD STAT CT 01/16/2025 External Device Data STL ABSTRACTION Provider, Abstract 01/16/2025 Telephone [facility] Oncology and Hematology [facility] [address] [place] [address] Manuel Bowman MD T[employer] Encounter 01/16/2025 Orders Only [facility] Oncology and Hematology - [place] [address] [place] [address] Manuel Bowman MD 01/16/2025 Telephone [facility] Oncology and Hematology - [place] [address] [place] [address] Manuel Bowman MD Anxiety 01/16/2025 External Device Data STL ABSTRACTION Provider, Abstract 01/15/2025 Orders Only [facility] Oncology and Hematology - [place] [address] [place] [address] Manuel Bowman MD Anxiety state (Primary Dx) 01/09/2025 2:00 PM CDT Office Visit [facility] Oncology and Hematology - [place] [address] [place] [address] Manuel Bowman MD Breast cancer [...] on file Legal Sex Female 5:57 AM LINING MARKER Gender Identity Not on file Sexual Orientation [...] (5' 6 ) 07/17/2010 10:1 0 PM LINING MARKER Body Mass Index - - Plan of Treatment Upcoming Encounters Date Type Department Care Team (Late st Contact Info) Description 02/14/2025 8:30 AM CDT Office Visit [facility] Oncology and Hematology - [place] [address] [facility] [address] [place] [address] Manuel Bowman MD [address] [facility] [address] [place] [address] Health Maintenance Due Date Last Done Comments DTAP/TDAP/TD VACCINES (1 - Tdap) 2000 INFLUENZA VACCINE (#1) 2024 BREAST CANCER SCREENING 04/10/2025 04/10/20 24, 04/10/2024, [...] Final Result from Last 3 Months Insurance [employer] CHO[employer] Advance Directives For more information, please contact: [phone] * Full Code (Latest Code Status on [...]
--- OUTSIDE RECORDS SUMMARY | 2025-01-18 08:15 | XMS_ITS | Encounter Summary ---
Author Organization [facility] [employer] [facility] Address [address] [place] [address] Care Team Providers Care Tube Maker Name Role Phone Unavailable Primary Care Provider Unavailabl e Reason for Visit * Reason Onset Date Comments STAT CT 01/17/2025 Encounter Details Date Type Department Care Team (Late st Contact Info) Description 01/17/2025 Telephone [facility] Oncology and Hematology - [place] [address] [facility] [address] [address] Manuel Bowman MD [address] [facility] [address] [place] [address] Social History Tobacco Use Types Packs/Day Years Used Date Smoking Tobacco: Never Smokeless Tobacco: Never Alcohol Use Standard Drinks/Week Comments Yes 0 (1 standard drink = 0.6 oz pur e alcohol) occasional Comments Unknown Sex and Gender Information Value Date Recorded Sex Assigned at Not on file Legal Sex Female 5:57 AM COMMUNITY AFFAIRS MANAGER Gender Identity Not on file Sexual [...] Description 02/14/2025 8:30 AM CDT Office Visit [facility] Oncology and Hematology - [place] [address] [facility] [address] [place] [address] Manuel Bowman MD [address] [facility] [address] [place] [address] documented as of this encounter Visit Diagnoses Not on filedocumented in this encounter
--- OUTSIDE RECORDS SUMMARY | 2025-01-18 08:15 | XMS_ITS | Encounter Summary ---
Author Organization [facility] Address [address] [place] [address] Care Team Providers Care Hand Tier Name Role Phone Unavailable Primary Care Provider [...] on file Legal Sex Female 5:57 AM FINISHING TUNNEL OPERATOR Gender Identity Not on file Sexual Orientation Not on file documented as of this encounter Plan of Treatment Upcoming Encounters Date Type Department Care Team (Late st Contact Info) Description 02/14/2025 8:30 AM CDT Office Visit [facility] Oncology and Hematology - [place] [address] [place] [address] Manuel Bowman MD [address] [facility] [address] [place] [address] documented as of this encounter Visit Diagnoses Not on filedocumented in this encounter
--- OUTSIDE RECORDS SUMMARY | 2025-01-18 08:15 | XMS_ITS | Encounter Summary ---
Author Organization [facility] [employer] [facility] Address [address] [place] [address] Care Team Providers Care Slotter Operator Helper Name Role Phone Unavailable Primary Care Provider Unavailabl e Reason for Referral * CT Scan (Urgent) - Closed Specialty Diagnoses / Procedures Referred By Contac t Referred To Contact Diagnoses Breast cancer metastasized to axillary lymph node, right (CMS/HCC) Procedures CT CHEST ABDOMEN PELVIS W CONT Manuel Bowman MD [address] [employer] [address] [place] [address] Phone: tel: fax: [place] [phone] Referral ID Status Reason Start Date Expiration Date V isits Requested Visits Authorized [id number] Closed [facility] CTS 01/17/2025 02/17/2026 1 1 Encounter Details Date Type Department Care Team (Late st Contact Info) Description 01/17/2025 Orders Only [facility] Oncology and Hematology [facility] [place] [address] [facility] [address] [place] [address] Manuel Bowman MD [address] [employer] [address] [place] [address] Breast cancer metastasized to axillary [...] file Legal Sex Female 5:57 AM MANAGER QUALITY IMPROVEMENT Gender Identity Not on file Sexual Orientation Not on file documented as of this encounter Plan of Treatment Upcoming Encounters Date Type Department Care Team (Late st Contact Info) Description 02/14/2025 8:30 AM CDT Office Visit [facility] Oncology and Hematology - [place] [address] [facility] [address] [place] [address] Manuel Bowman MD [address] [facility] [address] [place] [address] Scheduled Orders Name Type Priority [...]
== END 2025-01-18 08:10 | disposition home or self-care (01) ==
LOC: ANHIMG 08:12
PROVIDERS: Visit Provider Surgery
DX: C50.911 Malignant neoplasm of unspecified site of right female breast (principal); C77.3 Secondary and unspecified malignant neoplasm of axilla and upper limb lymph nodes
CPT/HCPCS: 20999; 76942; 88305; A4648

== ENCOUNTER 2025-03-08 15:19 | Outpatient (CLI) | payer BC, SELFPAY ==
--- NOTE | ~2025-03-08 | US_ITS ---
Pelvic ultrasound. Clinical History: Pelvic swelling Technique: Realtime transabdominal and transvaginal scanning of the pelvis was performed. Color flow Doppler and Doppler spectral analysis were performed. Findings: The uterus is absent, compatible prior hysterectomy. There are probable cervical nabothian cysts. Noted over seen. No adnexal mass seen. There is no evidence of free fluid in the cul de sac. Impression: Probable cervical nabothian cysts. Status post hysterectomy. Neither ovary seen. Reviewed, dictated and finalized at location . Impression: Probable cervical nabothian cysts. Status post hysterectomy. Neither ovary seen.
== END 2025-03-08 15:20 | disposition home or self-care (01) ==
LOC: MICIMG 15:20
PROVIDERS: PCP Physician Assistant Medical; Visit Provider Nurse Practitioner Obstetrics & Gynecology
DX: R93.5 Abnormal findings on diagnostic imaging of other abdominal regions, including retroperitoneum (principal); R19.00 Intra-abdominal and pelvic swelling, mass and lump, unspecified site; Z90.710 Acquired absence of both cervix and uterus
CPT/HCPCS: 76830; 76856

== ENCOUNTER 2025-05-20 10:34 | Outpatient (CLI) | payer BC, SELFPAY ==
--- NOTE | ~2025-05-20 | MR_ITS ---
MR breast BI wo/w con INDICATION:45 year old female with known biopsy-proven right multifocal cancer involving the lower inner and lower central breast, being treated with neoadjuvant chemotherapy. Patient presents for assessment of response to treatment. TECHNIQUE: MRI of the breasts perform using standard protocol pre-and post IV contrast with the following sequences: Axial T2 STIR, axial T1, axial vibrant T1 with fat suppression precontrast and multiphasic postcontrast. 17 cc MultiHance administered intravenously. COMPARISON: Mammogram and ultrasound dated 01/18/2025 and 12/20/2024. FINDINGS: There is Heterogeneous fibroglandular tissue that demonstrates Mild and is Symmetric. Right breast: There are no abnormalities on the precontrast sequences. There is mild background parenchymal enhancement. There is been an interval resolution of previously reported multiple irregular shaped masses involving the lower inner and lower central right breast. There are no abnormally enhancing lesions in the breast on this current examination. . Nipple areolar complex is normal in appearance. There is complete resolution of previously reported multiple right axillary lymphadenopathies. No evidence of signal abnormalities in the axillary or internal mammary node distributions. LEFT BREAST: No signal abnormalities on precontrast sequences. There is mild background parenchymal enhancement. No enhancing lesions following contrast administration. No enhancing intramammary lymph node is noted in the inferior lateral left breast. No areas of enhancement meeting threshold criteria on CAD analysis. The nipple areolar complex is normal in appearance. No evidence of signal abnormalities in the axillary or internal mammary node distributions.] IMPRESSION: 1: Interval complete imaging response of known biopsy-proven multifocal right breast cancer to neoadjuvant chemotherapy. 2. No MRI evidence of malignancy in the left breast. 3. Interval complete imaging response of known right axillary metastatic adenopathy. The chest wall and left axillary portion of the examination are unremarkable. RECOMMENDATION: Continue appropriate medical oncology and surgical oncology management. BI-RADS 6, BIOPSY PROVEN MALIGNANCY Reviewed, dictated and finalized at location B. IMPRESSION: 1: Interval complete imaging response of known biopsy-proven multifocal right breast cancer to neoadjuvant chemotherapy. 2. No MRI evidence of malignancy in the left breast. 3. Interval complete imaging response of known right axillary metastatic adenop athy. The chest wall and left axillary portion of the examination are unremarka ble. RECOMMENDATION: Continue appropriate medical oncology and surgical oncology management. BI-RADS 6, BIOPSY PROVEN MALIGNANCY
--- OUTSIDE RECORDS SUMMARY | 2025-05-20 11:43 | XMS_ITS | Clinical Summary ---
Author Organization [facility] Address [address] [place] [address] Phone Care Team Providers Care At Risk Paraprofessional Name Role Phone Unavailable Primary Care Provider Unavailabl e Allergies No known active allergies Medications desvenlafaxine succinate (PRISTIQ) 25 mg Tablet Sustained Release 24HR Extended Release 24 hour tablet Take 1 Tablet by mouth daily. 10/30/19 25 Active amitriptyline (ELAVIL) 25 mg tablet Take 25 mg by mouth daily at bedtime. 12/05/19 25 Active LORazepam (ATIVAN) 1 mg tabletIndicati ons:Anxiety state Take 1 Tablet (1 mg) by mouth every 6 hours as needed for Anxiety. 2 Tablet 01/16/20 25 Active dexAMETHasone (DECADRON) 4 mg tablet Take 2 Tablets (8 mg) by mouth BID day before, day of, day after treatment with Docetaxel. 12 Tablet 6 01/23/20 25 Active diphenoxylate- atropine 2.5 mg-0.025 mg tablet Take 1 Tablet by mouth 4 times daily as needed for Diarrhea/Loos e Stools. 60 Tablet 01/31/20 25 Active prochlorperazi ne maleate (COMPAZINE) 10 mg tablet TAKE 1 TABLET(10 MG) BY MOUTH EVERY 6 HOURS NEEDED FOR NAUSEA OR VOMITING 60 Tablet 04/02/20 25 Active loratadine (CLARITIN) 10 mg tablet Take 10 mg by mouth daily. Active lidocaine-pril ocaine (EMLA) 2.5-2.5 % Cream Apply a quarter size amount to port site 30 minutes before access. 30 Gram 1 04/24/20 25 Active ondansetron (ZOFRAN ODT) 8 mg Tablet, Rapid Dissolve DISSOLVE 1 TABLET ON THE TONGUE EVERY 8 HOURS NEEDED FOR NAUSEA OR VOMITTING 30 Tablet 1 05/03/20 25 Active lidocaine-pril ocaine (EMLA) 2.5-2.5 % Cream Apply a quarter size amount to port site 30 minutes before access. 30 Gram 1 01/23/20 25 025 Discontinued(Re order) ondansetron (ZOFRAN ODT) 8 mg Tablet, Rapid Dissolve DISSOLVE 1 TABLET ON THE TONGUE EVERY 8 HOURS NEEDED FOR NAUSEA OR VOMITTING 30 Tablet 1 03/08/20 25 025 Discontinued lidocaine-pril ocaine (EMLA) 2.5-2.5 % Cream Apply a quarter size amount to port site 30 minutes before access. 30 Gram 1 04/24/20 25 025 Discontinued(Re order) azithromycin (ZITHROMAX) 250 mg tablet Take 2 Tablets (500 mg) by mouth daily for 1 day, THEN 1 Tablet (250 mg) daily for 4 days. 6 Tablet 04/24/20 25 025 Active Problems Problem Noted Date Diagnosed Date Protein calorie malnutrition 07/20/2010 Leukocytosis 07/20/2010 D.I.C. (disseminated intravascular coagulation) 07/19/2010 Hemorrhage after delivery of fetus 07/19/2010 Hypovolemia 07/19/2010 Chyst 07/1807/18/2010 Resolved Problems Problem Noted Date Diagnosed Date Resolved Date C section 07/18; PPH - 2uPRBC 07/18/2010 07/18/2010 MIL, pit, GBS neg 07/17/2010 07/18/2010 Encounters Date Type Department Care Team Description 05/16/2025 Orders Only [facility] Oncology and Hematology - [place] [address] [place] [address] Manuel Bowman MD 05/15/2025 9:00 AM CDT Office Visit [facility] Oncology and Hematology - [place] [address] [place] [address] Manuel Bowman MD Breast cancer metastasized to axillary lymph node, right (CMS/HCC) (Primary Dx) 05/13/2025 Orders Only [facility] Oncology and Hematology - [place] [address] [place] [address] Manuel Bowman MD Breast cancer metastasized to axillary lymph node, right (CMS/HCC) 05/03/2025 Refill [facility] Oncology and Hematology - [place] [address] [place] [address] Manuel Bowman MD 04/29/2025 Orders Only [facility] Oncology and Hematology - [place] [address] [place] [address] Manuel Bowman MD Breast cancer metastasized to axillary lymph node, right (CMS/HCC) 04/24/2025 9:15 AM CDT Office Visit [facility] Oncology and Hematology - [place] [address] [place] [address] Manuel Bowman MD Breast cancer metastasized to axillary lymph node, right (CMS/HCC) (Primary Dx) 04/24/2025 Abstract [facility] Oncology and Hematology - [place] [address] [place] [address] Manuel Bowman MD 04/24/2025 Orders Only [facility] Oncology and Hematology - [place] [address] [place] [address] Manuel Bowman MD 04/15/2025 Orders Only [facility] Oncology and Hematology - [place] [address] [place] [address] Manuel Bowman MD Breast cancer metastasized to axillary lymph node, right (CMS/HCC) 04/09/2025 Orders Only [facility] Oncology and Hematology - [place] [address] [place] [address] Manuel Bowman MD 04/03/2025 9:30 AM CDT Office Visit [facility] Oncology and Hematology - [place] [address] [place] [phone] Manuel Bowman MD Breast cancer metastasized to axillary lymph node, right (CMS/HCC) (Primary Dx) 04/03/2025 Telephone [facility] Oncology and Hematology [facility] [address] [place] [address] Manuel Bowman MD Mouth Lesions 04/03/2025 Orders Only [facility] Oncology and Hematology [facility] [address] [place] [address] Manuel Bowman MD 04/02/2025 External Device Data STL ABSTRACTION Provider, Abstract 04/02/2025 Refill [facility] Oncology [facility] Hematology [facility] [address] [place] [address] Manuel Bowman MD 04/01/2025 Orders Only [facility] Oncology and Hematology [facility] [address] [place] [address] Manuel Bowman MD Breast cancer metastasized to axillary lymph node, right (CMS/HCC) 03/22/2025 Orders Only [facility] Oncology and Hematology [facility] [address] [place] [address] Manuel Bowman MD 03/18/2025 Orders Only [facility] Oncology and Hematology [facility] [address] [place] [address] Manuel Bowman MD Breast cancer metastasized to axillary lymph node, right (CMS/HCC) 03/13/2025 8:30 AM CDT Office Visit [facility] Oncology and Hematology [facility] [address] [place] [address] Manuel Bowman MD Breast cancer metastasized to axillary lymph node, right (CMS/HCC) (Primary Dx) 03/13/2025 External Device Data STL ABSTRACTION Provider, Abstract 03/13/2025 External Device Data STL ABSTRACTION Provider, Abstract 03/13/2025 Orders Only [facility] Oncology [facility] Hematology [facility] [address] Manuel Bowman MD 03/13/2025 External Device Data STL ABSTRACTION Provider, Abstract 03/08/2025 Refill [facility] Oncology [facility] Hematology [facility] [address] [place] [address] Manuel Bowman MD 03/07/2025 8:30 AM CDT Office Visit [facility] Oncology [facility] [address] [place] [address] Manuel Bowman MD Breast cancer metastasized to axillary lymph node, right (CMS/HCC) (Primary Dx) 03/06/2025 Telephone [facility] Oncology [facility] Hematology [facility] [address] [place] [address] Manuel Bowman MD possible infection in right breast 03/04/2025 Orders Only [facility] Oncology [facility] [address] [place] [address] Manuel Bowman MD Breast cancer metastasized to axillary lymph node, right (CMS/HCC) 02/26/2025 Abstract [facility] Oncology [facility] [address] [place] [address] Manuel Bowman MD 02/22/2025 Telephone [facility] Oncology [facility] Hematology [facility] [address] [place] [address] Manuel Bowman MD Mouth Sores 02/18/2025 Orders Only [facility] Oncology [facility] Hematology [facility] [address] [place] [address] Manuel Bowman MD Breast cancer metastasized to axillary lymph node, right (CMS/HCC) from Last 3 Months Immunizations Immunization Administration [...] Date Smoking Tobacco: Never Smokeless Tobacco: Never Tobacco Cessation:Counseling Given: Not Answered Alcohol Use Standard Drinks/Week Comments Yes 0 (1 standard drink = 0.6 oz pur e alcohol) occasional Comments Unknown Sex and Gender Information Value Date Recorded Sex Assigned at Not on file Legal Sex Female 5:57 AM ROCK WOOL 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 Gender Identity Not on file Sexual Orientation Not on file Last Filed Vital Signs Vital Sign Reading Time Taken Comments Blood Pressure 121/89 05/15/2025 9:08 AM CDT Pulse 103 05/15/2025 9:08 AM CDT Temperature 36.4 C (97.6 F) 05/15/2025 9:08 AM CDT Respiratory Rate 16 05/15/2025 9:08 AM CDT Oxygen Saturation 96% 05/15/2025 9:08 AM CDT Inhaled Oxygen Concentration - - Weight 88.7 kg (195 lb 9.6 oz) 05/15/2025 9:08 A M CDT Height 167.6 cm (5' 6) 07/17/2010 10:10 PM ROCK WOOL APPLICATOR Body Mass Index - - Plan of Treatment Upcoming Encounters Date Type Department Care Team (Late st Contact Info) Description 06/26/2025 9:15 AM CDT Office Visit [facility] Oncology and Hematology - [place] [address] [place] [address] Manuel Bowman MD [address] [facility] [address] [place] [address] Health Maintenance Due Date Last Done Comments DTAP/TDAP/TD VACCINES (1 - Tdap) 2000 HPV VACCINES (1 - Risk 3-dos e SCDM series) 2008 INFLUENZA VACCINE (#1) 2025 BREAST CANCER SCREENING 04/10/2025 04/10/20 24, 04/10/2024, 03/30/2023, Additional history exists HEPATITIS B VACCINES Completed 04/07/2001, 04/07/2001, 08/27/2000, Additional history exists Procedures Procedure Name Priority Date/Time Associated Diagnosis Comments COMPREHENSIVE METABOLIC PANEL Routine 05/15/2025 11:55 AM CDT BASIC METABOLIC PANEL Routine 04/24/2025 12:02 PM CDT COMPREHENSIVE METABOLIC PANEL Routine 04/24/2025 12:01 PM CDT COMPREHENSIVE METABOLIC PANEL Routine 04/08/2025 12:48 PM CDT CBC WITH AUTODIFFERENTIAL Routine 2024 12:39 PM CDT BASIC METABOLIC PANEL Routine 04/03/2025 12:53 PM CDT COMPREHENSIVE METABOLIC PANEL Routine 04/03/2025 12:50 PM CDT BASIC METABOLIC PANEL Routine 03/21/2025 11:12 AM CDT BASIC METABOLIC PANEL Routine 03/13/2025 1:38 PM CDT COMPREHENSIVE METABOLIC PANEL Routine 03/13/2025 1:01 PM CDT from Last 3 Months Results * COMPREHENSIVE METABOLIC PANEL (05/15/2025 11:55 AM CDT) Only the most recent of5 resultswithin the time period is included. Blood us Manuel Bowman MD CHEMISTRY ORDERABLES Final Resu lt * BASIC METABOLIC PANEL (04/24/2025 12:02 PM CDT) Only the most recent of4 resultswithin the time period is included. Blood us Manuel Bowman MD CHEMISTRY ORDERABLES Final Resu lt * CBC WITH AUTODIFFERENTIAL (04/08/2025 12:39 PM CDT) Blood us Manuel Bowman MD HEMATOLOGY ORDERABLES Final Res ult from Last 3 Months Insurance BLUE ACCESS CHOICE BLUE ACCESS CHOICE Advance Directives For more information, please contact: [phone] * Full Code (Latest Code Status on [...]
--- OUTSIDE RECORDS SUMMARY | 2025-05-20 11:43 | XMS_ITS | Clinical Summary ---
Author Organization [facility] Address [address] [place] [address] Care Team Providers Care Wrapper Caser Name Role Phone Rosalva Domingo Primary Care Provider [phone] Allergies No known active allergies Medications St [...] 10:41 AM CDT Height 167.4 cm (5' 5.9) 03/23/2019 10:41 AM CD T Body Mass Index 33.35 03/23/2019 10:41 AM CDT Plan of Treatment Health Maintenance Due Date Last Done Comments Annual Physical 1984 Hepatitis C 1999 DTaP, Tdap and Td Vaccines (1 - Tdap) 2000 HPV Vaccines (1 - 3-dose SCDM series) 2008 COVID-19 Vaccine ( season) 2025 Mammogram Screening 04/10/2026 04/10/2024, 03/30/2023, 02/22/2023, Additional history exists Hepatitis B Vaccines Completed 04/07/2001, 08/27/2000, 10/16/1999 Meningococcal B Vaccine Aged Out No l [...] Relevant to Health Maintenance Insurance Care Teams Wrapper Caser Relationship Specialty Start Date End Date Rosalva Domingo PA [address] [place] [id number] PCP - General PHYSICIAN PRODUCT SCIENTIST 02/22/23
--- OUTSIDE RECORDS SUMMARY | 2025-05-20 11:43 | XMS_ITS | Encounter Summary ---
Author Organization [facility] [employer] [facility] Address [address] [place] [address] Care Team Providers Care Undergraduate Advisor Name Role Phone Unavailable Primary Care Provider Unavailabl e Encounter Details Date Type Department Care Team (Late Contact Info) Description 05/16/2025 Orders Only [facility] Oncology and Hematology - [place] [address] [place] [address] Manuel Bowman MD [address] [employer] [address] [place] [address] Social History Tobacco Use Types Packs/Day Years Used Date Smoking Tobacco: Never Smokeless Tobacco: Never Alcohol Use Standard Drinks/Week Comments Yes 0 (1 standard drink = 0.6 oz pur e alcohol) occasional Comments Unknown Sex and Gender Information Value Date Recorded Sex Assigned at Not on file Legal Sex Female 5:57 AM CITY 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 Gender Identity Not on file Sexual Orientation Not on file documented as of this encounter Plan of Treatment Upcoming Encounters Date Type Department Care Team (Late Contact Info) Description 06/26/2025 9:15 AM CDT Office Visit [facility] Oncology and Hematology - [place] [address]la [address] [place] [address] Manuel Bowman MD [address] [employer] [address] [place] [address] documented as of this encounter Procedures Procedure Name Priority Date/Time Associated Diagnosis Comments COMPREHENSIVE METABOLIC PANEL Routine 05/15/2025 11:55 AM CDT documented in this encounter Results * COMPREHENSIVE METABOLIC PANEL (05/15/2025 11:55 AM CDT) Blood Manuel Bowman MD CHEMISTRY ORDERABLES Final Resu lt documented in this encounter Visit Diagnoses Not on filedocumented in this encounter
--- OUTSIDE RECORDS SUMMARY | 2025-05-20 11:43 | XMS_ITS | Clinical Summary ---
Author Organization [facility] [address] Address [address] [place] [address] Care Team Providers Care Patented Hogshead Assembler Name Role Phone Douglas Flores MD Primary Care Provider [phone] Allergies No known active allergies Medications cetirizine [...] on file Legal Sex Female 3:10 PM ENGAGEMENT LEAD Gender Identity Not on file Sexual Orientation Not on file Obstetrics History Last Filed Vital Signs Vital Sign Reading Time Taken Comments Blood Pressure - - Pulse - - Temperature 36.6 C (97.8 F) 09/10/2020 8:27 AM ENGAGEMENT LEAD Respiratory Rate - - Oxygen Saturation - - Inhaled Oxygen Concentration - - Weight 90.7 kg (200 lb) 09/10/2020 8:27 AM ENGAGEMENT LEAD Height 167.6 cm (5' 6) 09/10/2020 8:27 AM ENGAGEMENT LEAD Body Mass Index 32.28 09/10/2020 8:27 AM ENGAGEMENT LEAD Plan of Treatment Not on file Insurance BLUE [facility] BL CHOICE PRF PPO [place] Care Teams Patented Hogshead Assembler Relationship Specialty Start Date End Date Douglas Flores MD [address] [place] [address] PCP - General Internal Medicine 09/02/20
--- OUTSIDE RECORDS SUMMARY | 2025-05-20 11:43 | XMS_ITS | Clinical Summary ---
Author Organization [facility] [employer] Address [address] [place] [address] Care Team Providers Care Rice Cleaning Machine Tender Name Role Phone Stanislaw Sarmiento MD Primary Care Provider Unavailabl e Source Comments [facility],non-owned Affiliates and Associated Physician Practices is amultiple site organization consisting of ambulatory clinics and hospital sitesin [place], [place], [place] and [place]. This disclosure is being madepursuant to the Care Everywhere program and may not contain all information available regarding this patient. Last updated 18.[facility] Allergies No known active allergies Medications * [...] on file Legal Sex Female 7:02 AM APRON CLEANER Gender Identity Not on file Sexual Orientation Not on file Last Filed Vital Signs Vital Sign Reading Time Taken Comments Blood Pressure 112/70 07/25/2012 11:48 AM APRON CLEANER Pulse 70 07/25/2012 11:48 AM APRON CLEANER Temperature - - Respiratory Rate 14 07/25/2012 11:48 AM APRON CLEANER Oxygen Saturation - - Inhaled Oxygen Concentration - - Weight 81.2 kg (179 lb) 07/25/2012 11:48 AM APRON CLEANER Height 167.6 cm (5' 6) 07/25/2012 11:48 AM APRON CLEANER Body Mass Index 28.89 07/25/2012 11:48 AM APRON CLEANER Plan of Treatment Health Maintenance Due Date Last Done Comments MAMMOGRAM 1981 COVID-19 VACCINE (#1) 1986 HIV SCREENING 1996 HEPATITIS C SCREENING 05/15/1999 DTAP/TDAP/TD VACCINES (1 - Tdap) 2000 HEPATITIS B VACCINE (1 of 3 - 19+ 3-dose series) 2000 PNEUMOCOCCAL VACCINE (1 of 2 - PCV) 2000 ZOSTER VACCINE (1 of 2) 2000 PAP SMEAR 2002 HPV VACCINE (1 - 3-dose SCDM series) 2008 LIPID TESTING 09/15/2017 09/15/2012, 05/28/2009 DEPRESSION SCREENING 08/29/2024 INFLUENZA VACCINE (#1) 2025 HIB VACCINE Aged Out No longer eligi [...] Comments LIPID PROFILE Routine 09/15/2012 8:51 AM APRON CLEANER Screening for lipoid disorders from Last 3 Months or Most Recently Relevant to Health Maintenance Results * LIPID PROFILE (09/15/2012 8:51 AM APRON CLEANER) Cholesterol 161 125 - 200 mg/dL [facility] Comment: Test Performed at: [facility] [place] [address] [place] [address] ROLANDO CLIFFORD DO,MPH HDL Cholesterol 62 > [...] BLOOD SPECIMEN / Unknown 09/15/2012 8:51 AM APRON CLEANER 09/15/2012 8:51 AM APRON CLEANER Stanislaw Sarmiento MD LAB - CHEMISTRY ORDERABLES Final Result [facility] [address] [place] [address] from Last 3 Months or Most Recently Relevant to Health Maintenance Insurance [facility] Address: [facility] [id number] [place] [address] Care Teams Rice Cleaning Machine Tender Relationship Specialty Start Date End Date Stanislaw Sarmiento MD Updated address needed PCP - General 09/30/09
== END 2025-05-20 10:35 | disposition home or self-care (01) ==
PROVIDERS: PCP Physician Assistant Medical; Visit Provider Surgery
DX: C50.911 Malignant neoplasm of unspecified site of right female breast (principal)
CPT/HCPCS: 77049; A9577; C8908

== ENCOUNTER 2025-06-06 10:43 | Outpatient (CLI) | payer BC, SELFPAY ==
--- NOTE | 2025-06-06 | ECHO_ITS ---
Patient Info Name: Gisele Chandler Age: 45 years : 1980 Gender: Female Ht: 66 in Wt: 195 lbs BSA: 2.06 m2 HR: 81 bpm BP: 107 / 86 mmHg Technical Quality: Good Exam Date: 06/06/2025 11:17 AM Patient Status: O Admit Date: 06/06/2025 Exam Type: CA echo doppler color flow Complete two-dimensional, color flow and Doppler transthoracic echocardiogram is performed. Strain analysis performed. Product Development Carpenter: Willie Lopez III Attending Provider: Manuel Bowman MD Summary 1. Complete two-dimensional, color flow and Doppler transthoracic echocardiogram is performed. 2. Left ventricular chamber dimension is normal. 3. Left ventricular systolic function is normal, estimated at 60-65. 4. The left ventricular diastolic function is grade I diastolic dysfunction. 5. E/e' 5 is not elevated. 6. Global longitudinal strain is slightly abnormal at -16.9%. 7. There is trace mitral valve regurgitation. Left Ventricle E/e' 5 is not elevated. Left ventricular chamber dimension is normal. Left ventricular systolic function is normal, estimated at 60-65. The left ventricular diastolic function is grade I diastolic dysfunction. Global longitudinal strain is slightly abnormal at -16.9%. Right Ventricle Right ventricular chamber dimension is normal. Right ventricular systolic function is normal. Left Atria Left atrial chamber dimension is normal. Right Atria Right atrial chamber dimension is normal. Aortic Valve The aortic valve is trileaflet. There is no aortic valve stenosis. There is no aortic valve regurgitation. Pulmonic Valve There is no pulmonic regurgitation. Mitral Valve There is no mitral valve stenosis. There is trace mitral valve regurgitation. Tricuspid Valve There is no tricuspid valve regurgitation. Pericardium/Pleural There is no pericardial effusion. Inferior Vena Cava Normal inferior vena cava with >50% collapse upon inspiration consistent with normal right atrial pressure, 5 mmHg. Aorta The aortic root size at the sinus of Valsalva is normal. Left Ventricular Outflow Tract Name Value Normal LVOT 2D LVOT Diameter 2.2 cm LVOT Doppler LVOT Peak Velocity 109 cm/s LVOT Peak Gradient 5 mmHg LVOT Mean Gradient 2 mmHg LVOT VTI 22 cm LVOT VTI/AV VTI Ratio 1.0 LVOT Stroke Volume 87 ml LVOT CO 6.9 l/min LVOT CI 3.3 l/min/m2 Pulmonic Valve Name Value Normal PV Doppler PV Peak Velocity 54 cm/s PV Peak Gradient 1 mmHg PV Mean Gradient 1 mmHg Mitral Valve Name Value Normal MV Doppler MV Peak Gradient 1 mmHg MV Mean Gradient 1 mmHg MV Area (Cont Eq VTI) 6.2 cm2 MV Diastolic Function MV E Peak Velocity 54 cm/s MV A Peak Velocity 55 cm/s MV E/A 1.0 MV Decel Time (PW) 111 ms MV Annular TDI MV E/e' (Septal) 7.0 MV E/e' (Lateral) 4.4 MV E/e' (Average) 5.7 Tricuspid Valve Name Value Normal Estimated PAP/RSVP RA Pressure 5 mmHg <=5 TV Annular TDI TV Lateral Slime s' Velocity 11.0 cm/s >=9.5 Aortic Valve Name Value Normal AV Doppler AV Peak Velocity 115 cm/s AV Peak Gradient 5 mmHg AV Mean Gradient 3 mmHg AV VTI 23 cm AV Area (Cont Eq VTI) 3.8 cm2 >=3.0 AV Area (Cont Eq Spencer) 3.7 cm2 AV DI (Spencer) 0.95 AV Regurgitation 2D LVOT Area 3.9 cm2 Ventricles Name Value Normal LV Dimensions 2D/MM IVS Diastolic Thickness (2D) 0.9 cm 0.6-1.0 LVID Diastole (2D) 4.0 cm 3.8-5.2 LVIW Diastolic Thickness (2D) 0.7 cm 0.6-0.9 LVID Systole (2D) 2.7 cm 2.2-3.5 LVOT Diameter 2.2 cm LV Mass (2D Cubed) 92.16 g 67.00-162.00 LV Mass Index (2D Cubed) 45 g/m2 43-95 Relative Wall Thickness (2D) 0.35 <=0.42 LV Fractional Shortening/Ejection Fraction 2D/MM LV Fractional Shortening (2D) 32 % 27-45 LV EF (2D Teichholz) 61 % LV Diastolic Volume (4C MOD) 82 ml LV EF (4C MOD) 51 % LV Diastolic Volume (2C MOD) 67 ml LV EF (2C MOD) 62 % LV Diastolic Volume (BP MOD) 76 ml 46-106 LV Diastolic Volume Index (BP MOD) 37 ml/m2 29-61 LV Systolic Volume (BP MOD) 33 ml 14-42 LV Systolic Volume Index (BP MOD) 16 ml/m2 8-24 LV EF (BP MOD) 57 % 54-74 LV Diastolic Length (4C) 7.7 cm LV Systolic Length (4C) 6.6 cm LV Stroke Volume (4C MOD) 42 ml Atria Name Value Normal LA Dimensions LA Volume (4C A-L) 36 ml LA Volume (BP A-L) 42 ml RA Dimensions RA Systolic Major [place] Length (4C) 4.9 cm 2.2-2.8 RA Area (4C) 16.2 cm2 <=18.0 EchoPAC Name Value Normal AutoEF LVCO_BiP_Q (Bhyz1JAC) 3.2 l/min LVEF_BiP_Q (Mxjv7QPW) 57 % LVSV_BiP_Q (Anbg1WQL) 37 ml LVVED_BiP_Q (Mxqu7GOE) 66 ml LVVES_BiP_Q (Xhtc0SRY) 29 ml HR_4Ch_Q (Lqri7CJG) 87 bpm LVCO_4Ch_Q (Dxpa7TGH) 3.1 l/min LVEF_4Ch_Q (Ufkc1ZJI) 55 % LVLd_4Ch_Q (Juks3TDT) 8.2 cm LVLs_4Ch_Q (Iizu6IGW) 6.5 cm LVSV_4Ch_Q (Xyis9HMI) 36 ml LVVED_4Ch_Q (Gewk6JRG) 65 ml LVVES_4Ch_Q (Okcy7AAM) 30 ml HR_2Ch_Q (Krjr4ODM) 86 bpm LVCO_2Ch_Q (Wxxr2SNZ) 3.3 l/min LVEF_2Ch_Q (Ztwc3ZLC) 58 % LVLd_2Ch_Q (Idhx5ZVB) 8.2 cm LVLs_2Ch_Q (Pztj0QOC) 6.9 cm LVSV_2Ch_Q (Aftk9PMI) 39 ml LVVED_2Ch_Q (Dsna0RLE) 66 ml LVVES_2Ch_Q (Njgi7HLR) 28 ml AFSANEH LV Apical Anterior Longitudinal Strain (AFSANEH) -20.2 % LV Apical Anteroseptal Longitudinal Strain (AFSANEH) -13.0 % LV Apical Inferior Longitudinal Strain (AFSANEH) -18.6 % LV Apical Lateral Longitudinal Strain (AFSANEH) -13.9 % LV Apical Posterior Longitudinal Strain (AFSANEH) -10.0 % LV Apical Septal Longitudinal Strain (AFSANEH) -16.7 % AV Closure (AFSANEH) 393 ms LV Basal Anterior Longitudinal Strain (AFSANEH) -18.4 % LV Basal Anteroseptal Longitudinal Strain (AFSANEH) -16.3 % LV Basal Inferior Longitudinal Strain (AFSANEH) -16.0 % LV Basal Anterolateral Longitudinal Strain (AFSANEH) -23.1 % LV Basal Inferolateral Longitudinal Strain (AFSANEH) -25.5 % LV Basal Inferoseptal Longitudinal Strain (AFSANEH) -15.8 % LV Global Longitudinal Strain (2C AFSANEH) -18.2 % LV Global Longitudinal Strain (4C AFSANEH) -16.0 % LV Global Longitudinal Strain (APLAX AFSANEH) -16.7 % LV Global Longitudinal Strain (AFSANEH) -17.0 % LV Mid Anterior Longitudinal Strain (AFSANEH) -21.3 % LV Mid Anteroseptal Longitudinal Strain (AFSANEH) -20.2 % LV Mid Inferior Longitudinal Strain (AFSANEH) -15.1 % LV Mid Anterolateral Longitudinal Strain (AFSANEH) -13.4 % LV Mid Inferolateral Longitudinal Strain (AFSANEH) -8.6 % LV Mid Inferoseptal Longitudinal Strain (AFSANEH) -17.5 % Report Signatures
--- NOTE | 2025-06-06 10:58 | ECG_ITS ---
Test Date: 2025-06-06 11:34:21 Measurements Intervals Stanley Rate: 90 P: 41 LA: 166 QRS: 57 QRSD: 79 T: 28 QT: 353 QTc: 433 Interpretive Statements SINUS RHYTHM MINIMAL Q WAVES- ANTEROLAT/INF LEADS BORDERLINE ECG No previous ECG available for comparison Electronically Signed On 06-06-2025 11:46:17 CDT by River Verma D.O.
== END 2025-06-06 10:44 | disposition home or self-care (01) ==
LOC: ANHCARD 10:45
PROVIDERS: PCP Physician Assistant Medical; Visit Provider Internal Medicine Hematology & Oncology
DX: Z51.11 Encounter for antineoplastic chemotherapy (principal); C50.911 Malignant neoplasm of unspecified site of right female breast
CPT/HCPCS: 36415; 86850; 86900; 86901; 93005; 93306

== ENCOUNTER 2025-06-12 02:45 | Day surgery (SDC) | payer BC, SELFPAY ==
[2025-06-06 10:15] VITALS: BMI 31.5
--- NOTE | 2025-06-06 10:17 | SUR.PREOP ---
[facility] has started construction of its new state of the art ER which will open Spring 2026. With this, we anticipate parking may be a challenge for some our surgical patients and families. Parking spaces are limited but are available for all Surgical, obstetrics, and ER patients sharing this lot. If you arrive and find you are having a hard time finding a parking space, please note that we understand the challenges, please drive around the hospital and park near Hospital Entrance 1. When you enter this entrance, you can ask a volunteer to direct or take you back to the surgical waiting area to check in. We appreciate everyone?s understanding of these expected challenges while we build for your future. Report to the Outpatient Waiting Room, entrance under the green pavilion located off [address], at time _6am____ on date __06/12/25 . Planned Procedure Time: __730am .? Time changes happen often and if your time is changed the preop area will call you the afternoon before. - You and your visitor will be asked to self-screen and do not enter if you have any COVID symptoms. Please call surgeon if you need to reschedule. - A mask is optional within the hospital at this time. - No food from midnight until time of surgery and no smoking, or chewing tobacco (or any form of nicotine). No chewing gum, candy or mints. Take only the following medications with a SIP of water on the morning of surgery: __desvenlafaxine, (ondansetron if needed). DO NOT STOP ANY OF YOUR OTHER PRESCRIPTION MEDICATIONS PRIOR TO SURGERY EXCEPT THE FOLLOWING Hold all vitamins and supplements for 3 days per anesthesiologist. Medications to discontinue per physician N/a Date to take last dose of MTV-___06/08/25 Please no make-up, nail croatian, hairspray, perfume, deodorant, or body powder the day of surgery.? No jewelry (including any body piercings) or valuables the day of surgery, leave them at home.? Please take a shower or bath the night before, or the morning of, surgery with an antibacterial soap.? Wear comfortable, loose fitting clothing.? Children are encouraged to wear pajamas. - Jewelry must be removed prior to entering the operating room.? Rings and piercings that are not removed may be cut off. - The hospital will not accept responsibility for valuables.? - Please leave all valuables, including medications, at home the day of surgery. If you are going home after surgery, a licensed lunch truck driver must drive you home.? - NO public transportation without another adult if you receive anesthesia. - We recommend that an adult stay with you for 24 hours following discharge. - We also recommend that you do not drive, make important decision, drink alcoholic beverages, or take any drugs that were not prescribed by your health care provider for at least 24 hours after your discharge time. Follow any additional instructions given to you from your surgeon. Telephone instructions given to __November and asked if any additional questions and then verbalized understanding. Patient advised to call surgeon office or pre surgery nurse liaison [phone] if any additional questions.
[2025-06-12] VITALS (12 sets, daily range): BP systolic 90–115; BP diastolic 52–77; PULSE 76–105; RESP 11–20; TEMP 36.1–36.6; O2SAT 96–100
--- NOTE | ~2025-06-12 | NM_ITS ---
EXAMINATION: NM sentinel node inject only DATE: 06/12/2025 09:25 INDICATION: Right breast cancer TECHNIQUE: 1.048 mCi Tc-99m Lymphoseek was injected at the right breast by Dr. Steve. Radiologist was not present for the injection. No images were obtained. IMPRESSION: 1. Right breast sentinel lymph node radiopharmaceutical injection. Reviewed, dictated and finalized at location A.
--- NOTE | ~2025-06-12 | MM_ITS ---
Clinical history:Surgery EXAM:Faxitron breast specimen TECHNIQUE:A single image was obtained. FINDINGS: Surgical specimen identified with a clip in the specimen. Possible mass in the specimen. Correlate clinically. IMPRESSION: Surgical specimen identified with a clip in the specimen. Possible mass in the specimen. Correlate clinically. Reviewed, dictated and finalized at location Q.
--- OUTSIDE RECORDS SUMMARY | 2025-06-12 02:48 | XMS_ITS | Clinical Summary ---
Author Organization [facility] [address] [employer] Address [address] [place] [address] Care Team Providers Care Meat Specialist Name Role Phone Douglas Flores MD Primary Care Provider [phone] Allergies No known active allergies Medications cetirizine [...] on file Legal Sex Female 3:10 PM PREPARER SAMPLES AND REPAIRS Gender Identity Not on file Sexual Orientation Not on file Obstetrics History Last Filed Vital Signs Vital Sign Reading Time Taken Comments Blood Pressure - - Pulse - - Temperature 36.6 C (97.8 F) 09/10/2020 8:27 AM PREPARER SAMPLES AND REPAIRS Respiratory Rate - - Oxygen Saturation - - Inhaled Oxygen Concentration - - Weight 90.7 kg (200 lb) 09/10/2020 8:27 AM PREPARER SAMPLES AND REPAIRS Height 167.6 cm (5' 6) 09/10/2020 8:27 AM PREPARER SAMPLES AND REPAIRS Body Mass Index 32.28 09/10/2020 8:27 AM PREPARER SAMPLES AND REPAIRS Plan of Treatment Not on file Insurance BLUE [facility] BL CHOICE PRF PPO [place] Care Teams Meat Specialist Relationship Specialty Start Date End Date Douglas Flores MD [address] [place] [address] PCP - General Internal Medicine 09/02/20
--- OUTSIDE RECORDS SUMMARY | 2025-06-12 02:48 | XMS_ITS | Encounter Summary ---
Author Organization [facility] [employer] [facility] Address [address] [place] [address] Care Team Providers Care Picking Crew Supervisor Name Role Phone Unavailable Primary Care Provider Unavailabl e Encounter Details Date Type Department Care Team (Late Contact Info) Description 06/07/2025 Orders Only [facility] Oncology and Hematology - [place] [address] [place] [address] Manuel Bowman MD [address] [place] [address] Social History Tobacco Use Types Packs/Day Years Used Date Smoking Tobacco: Never Smokeless Tobacco: Never Alcohol Use Standard Drinks/Week Comments Yes 0 (1 standard drink = 0.6 oz pur e alcohol) occasional Comments Unknown Sex and Gender Information Value Date Recorded Sex Assigned at Not on file 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 Gender Identity Not on file Sexual Orientation Not on file documented as of this encounter Plan of Treatment Upcoming Encounters Date Type Department Care Team (Late Contact Info) Description 06/26/2025 9:15 AM CDT Office Visit [facility] Oncology and Hematology - [place] [address] [place] [address] Manuel Bowman MD [address] [place] [address] documented as of this encounter Procedures Procedure Name Priority Date/Time Associated Diagnosis Comments ECHO COMPLETE Routine 06/06/2025 12:32 PM CDT documented in this encounter Results * ECHO COMPLETE (06/06/2025 12:32 PM CDT) us Manuel Bowman MD ECHO ORDERABLES Final Result documented in this encounter Visit Diagnoses Not on filedocumented in this encounter
--- OUTSIDE RECORDS SUMMARY | 2025-06-12 02:49 | XMS_ITS | Encounter Summary ---
Author Organization [facility] [employer] [facility] Address [address] [place] [address] Care Team Providers Care Director Private Name Role Phone Unavailable Primary Care Provider Unavailabl e Encounter Details Date Type Department Care Team (Late Contact Info) Description 06/10/2025 Orders Only [facility] Oncology and Hematology [facility] [address] [place] [address] Manuel Bowman MD [facility] [address] [place] [address] Breast cancer metastasized to axillary lymph node, right Social History Tobacco Use Types Packs/Day Years Used Date Smoking Tobacco: Never Smokeless Tobacco: Never Alcohol Use Standard Drinks/Week Comments Yes 0 (1 standard drink = 0.6 oz pur e alcohol) occasional Comments Unknown Sex and Gender Information Value Date Recorded Sex Assigned at Not on file Legal Sex Female 5:57 AM 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
--- OUTSIDE RECORDS SUMMARY | 2025-06-12 02:49 | XMS_ITS | Clinical Summary ---
Author Organization [facility] Address [address] [place] [address] Care Team Providers Care Airline Customer Service Agent Name Role Phone Rosalva Domingo Primary Care Provider [phone] Allergies No known active allergies Medications St [...] series) 2008 COVID-19 Vaccine ( season) 2025 Influenza Adult (#1) 2025 06/13/2019 Mammogram Screening 04/10/2026 04/10/2024, 03/30/2023, 02/22/2023, Additional [...] Relevant to Health Maintenance Insurance Care Teams Airline Customer Service Agent Relationship Specialty Start Date End Date Rosalva Domingo PA [address] [place] [address] PCP - General PHYSICIAN CAUSTIC ROOM OPERATOR 02/22/23
--- OUTSIDE RECORDS SUMMARY | 2025-06-12 02:49 | XMS_ITS | Clinical Summary ---
Author Organization [facility] Address [address] [place] [address] Care Team Providers Care Hot Plate Plywood Press Feeder Name Role Phone Stanislaw Sarmiento MD Primary Care Provider Unavailabl e Source Comments [facility],non-owned Affiliates and Associated Physician Practices is amultiple site organization consisting of ambulatory clinics and hospital sitesin [place], [place], [place] and [place]. This disclosure is being madepursuant to the Care Everywhere program and may not contain all information available regarding this patient. Last updated 18.[facility] Allergies No known active allergies Medications * [...] on file Legal Sex Female 7:02 AM SEWING MACHINIST Gender Identity Not on file Sexual Orientation Not on file Last Filed Vital Signs Vital Sign Reading Time Taken Comments Blood Pressure 112/70 07/25/2012 11:48 AM SEWING MACHINIST Pulse 70 07/25/2012 11:48 AM SEWING MACHINIST Temperature - - Respiratory Rate 14 07/25/2012 11:48 AM SEWING MACHINIST Oxygen Saturation - - Inhaled Oxygen Concentration - - Weight 81.2 kg (179 lb) 07/25/2012 11:48 AM SEWING MACHINIST Height 167.6 cm (5' 6) 07/25/2012 11:48 AM SEWING MACHINIST Body Mass Index 28.89 07/25/2012 11:48 AM SEWING MACHINIST Plan of Treatment Health Maintenance Due Date [...] Comments LIPID PROFILE Routine 09/15/2012 8:51 AM SEWING MACHINIST Screening for lipoid disorders from Last 3 Months or Most Recently Relevant to Health Maintenance Results * LIPID PROFILE (09/15/2012 8:51 AM SEWING MACHINIST) Cholesterol 161 125 - 200 mg/dL [facility] Comment: Test Performed at: [facility] [address] [place] [address] ROLANDO CLIFFORD DO,MPH HDL Cholesterol 62 > [...] BLOOD SPECIMEN / Unknown 09/15/2012 8:51 AM SEWING MACHINIST 09/15/2012 8:51 AM SEWING MACHINIST Stanislaw Sarmiento MD LAB - CHEMISTRY ORDERABLES Final Result [facility] [address] [place] [address] from Last 3 Months or Most Recently Relevant to Health Maintenance Insurance ANTH Care Teams Hot Plate Plywood Press Feeder Relationship Specialty Start Date End Date Stanislaw Sarmiento MD Updated address needed PCP - General 09/30/09
--- OUTSIDE RECORDS SUMMARY | 2025-06-12 02:49 | XMS_ITS | Clinical Summary ---
Author Organization [facility] Address [address] [place] [address] Phone Care Team Providers Care Senior Lead Java Developer Name Role Phone Unavailable Primary Care Provider Unavailabl e Allergies No known active allergies Medications desvenlafaxine succinate (PRISTIQ) 25 mg Tablet Sustained Release 24HR Extended Release 24 hour tablet Take 1 Tablet by mouth daily. 5 Active amitriptyline (ELAVIL) 25 mg tablet Take 25 mg by mouth daily at bedtime. 5 Active LORazepam (ATIVAN) 1 mg tabletIndicatio ns:Anxiety state Take 1 Tablet (1 mg) by mouth every 6 hours as needed for Anxiety. 2 Tablet 5 Active dexAMETHasone (DECADRON) 4 mg tablet Take 2 Tablets (8 mg) by mouth BID day before, day of, day after treatment with Docetaxel. 12 Tablet 6 5 Active diphenoxylate-a tropine 2.5 mg-0.025 mg tablet Take 1 Tablet by mouth 4 times daily as needed for Diarrhea/Loose Stools. 60 Tablet 5 Active prochlorperazin e maleate (COMPAZINE) 10 mg tablet TAKE 1 TABLET(10 MG) BY MOUTH EVERY 6 HOURS NEEDED FOR NAUSEA OR VOMITING 60 Tablet 5 Active loratadine (CLARITIN) 10 mg tablet Take 10 mg by mouth daily. Active lidocaine-prilo ariane (EMLA) 2.5-2.5 % Cream Apply a quarter size amount to port site 30 minutes before access. 30 Gram 1 5 Active ondansetron (ZOFRAN ODT) 8 mg Tablet, Rapid Dissolve DISSOLVE 1 TABLET ON THE TONGUE EVERY 8 HOURS NEEDED FOR NAUSEA OR VOMITTING 30 Tablet 1 5 Active Active Problems Problem Noted Date Diagnosed Date Protein calorie malnutrition 07/20/2010 Leukocytosis 07/20/2010 D.I.C. (disseminated intravascular coagulation) 07/19/2010 Hemorrhage after delivery of fetus 07/19/2010 Hypovolemia 07/19/2010 Chyst 07/1807/18/2010 Resolved Problems Problem Noted Date Diagnosed Date Resolved Date C section 07/18; PPH - 2uPRBC 07/18/2010 07/18/2010 MIL, pit, GBS neg 07/17/2010 07/18/2010 Encounters Date Type Department Care Team Description 06/10/[address] [facility] Oncology and Hematology - [address] [place] [id number] Manuel Bowman MD Breast cancer metastasized to axillary lymph node, right 06/07/[address] [facility] Oncology and Hematology - [place] [address] [place] [address] Manuel Bowman MD 05/27/[address] [facility] Oncology and Hematology - [address] [address] [place] [address] Manuel Bowman MD Breast cancer metastasized to axillary lymph node, right (CMS/HCC) 05/23/[address] [facility] Oncology and Hematology - [address] [place] [address] Manuel Bowman MD Encounter for antineoplastic chemotherapy (Primary Dx); Breast cancer metastasized to axillary lymph node, right (CMS/HCC) 05/16/[address] [facility] Oncology and Hematology - [address] [place] [address] Manuel Bowman MD 05/15/2025 9:00 AM CDT Office Visit [facility] Oncology and Hematology - [address] [address] [place] [address] Manuel Bowman MD Breast cancer metastasized to axillary lymph node, right (CMS/HCC) (Primary Dx) 05/13/[address] [facility] Oncology and Hematology - [address] [place] [address] Manuel Bowman MD Breast cancer metastasized to axillary lymph node, right (CMS/HCC) 05/03/[address] [facility] Oncology and Hematology - [address] [address] [place] [phone] Manuel Bowman MD 04/29/[address] [facility] Oncology and Hematology - [place] [address] [place] [address] Manuel Bowman MD Breast cancer metastasized to axillary lymph node, right (CMS/HCC) 04/24/2025 9:15 AM CDT Office Visit [facility] Oncology and Hematology - [address] [address] [place] [address] Manuel Bowman MD Breast cancer metastasized to axillary lymph node, right (CMS/HCC) (Primary Dx) 04/24/[address] [facility] Oncology and Hematology - [place] [address] [place] [address] Manuel Bowman MD 04/24/[address] [facility] Oncology and Hematology - [place] [address] [place] [address] Manuel Bowman MD 04/15/[address] [facility] Oncology and Hematology - [place] [address] [place] [address] Manuel Bowman MD Breast cancer metastasized to axillary lymph node, right (CMS/HCC) 04/09/[address] [facility] Oncology and Hematology - [place] [address] [place] [phone] Manuel Bowman MD 04/03/2025 9:30 AM CDT Office Visit [facility] Oncology and Hematology [facility] Dhara [address] [place] [phone] Manuel Bowman MD Breast cancer metastasized to axillary lymph node, right (CMS/HCC) (Primary Dx) 04/03/[address] [facility] Oncology and Hematology [facility] [address]la [address] Manuel Bowman MD Mouth Lesions 04/03/[address] [facility] Oncology and Hematology [facility] Kayla [address] [place] [phone] Manuel Bowman MD 04/02/2025 External Device Data STL ABSTRACTION Provider, Abstract 04/02/[address] [facility] Oncology and Hematology [facility] Kayla [address] [place] [phone] Manuel Bowman MD 04/01/[address] [facility] Kayla [address] [place] [phone] Manuel Bowman MD Breast cancer metastasized to axillary lymph node, right (CMS/HCC) 03/22/[address] [facility] Oncology and Hematology [facility] Dhara [address] [place] [address] Manuel Bowman MD 03/18/[address] [facility] Oncology and Hematology [place] Dhara [address] [place] [address] Manuel Bowman MD Breast cancer metastasized to axillary lymph node, right (CMS/HCC) 03/13/2025 8:30 AM CDT Office Visit [facility] Oncology and Hematology [facility] [address] [place] [phone] Manuel Bowman MD Breast cancer metastasized to axillary lymph node, right (CMS/HCC) (Primary Dx) 03/13/2025 External Device Data STL ABSTRACTION Provider, Abstract 03/13/2025 External Device Data STL ABSTRACTION Provider, Abstract 03/13/[address] 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 Oncology and Hematology [facility] [address] [address] [place] [address] Manuel Bowman MD [address] [place] [address] Health Maintenance Due Date Last [...] ECHO COMPLETE Routine 06/06/2025 12:32 PM CDT COMPREHENSIVE METABOLIC PANEL Routine 05/15/2025 11:55 AM [...] Last 3 Months Results * ECHO COMPLETE (06/06/2025 12:32 PM CDT) Manuel Bowman MD ECHO ORDERABLES Final Result * COMPREHENSIVE METABOLIC PANEL (05/15/2025 11:55 AM [...] Res ult from Last 3 Months Insurance [email or web address] CHO[email or web address] CHO[employer] Advance Directives For more information, please contact: [phone] * Full Code (Latest Code Status on [...]
[2025-06-12] MEDS: ACETAMINOPHEN 500 MG TABLET 1000 MG PO (06:27)
[2025-06-12] MEDS: LIDOCAINE/PRILOCAINE CREAM 2.5-2.5% TUBE 1 EACH TOPICAL (06:34)
[2025-06-12] MEDS: LACTATED RINGERS 1,000 ML 30 ML IV CONT ×2 (06:40→11:16)
--- NOTE | 2025-06-12 06:59 | WPDHPUPDATE1 ---
History and Physical Update Update Date/Time: 06/12/25 06:59 Patient seen and examined in pre-operative holding area. No interval change in medical history or symptoms. Patient remembers previous discussion of benefits and alternatives to procedure. Continues to desire to proceed with bilateral breast reconstruction with tissue precision grinder external and acellular dermal matrix with lewis pattern mastopexy at time of bilateral [id number] mastectomy. I reviewed the risks including but not limited to bleeding ,infection, asymmetry, undesireable cosmetic appearance, partial/total skin loss, no change or worsening of symptoms, change in sensation, device failure. I discussed the possible use of assistants and their level of participation in the case. Patient stated understanding and signed the consent form wishing to proceed
--- NOTE | 2025-06-12 07:00 | W.PM.PROC2 ---
Procedure Note - Detailed Date of Procedure 06/12/25 Pre-op Diagnosis malignant neoplasm right breast Post-op Diagnosis Same (acquired absence b/l breasts and nipple) Procedure Performed b/l breast recon with TE and adm placement with lewis pattern mastopexy at time of mastectomy Surgeon Tenzin Walton MD Arborer Elizabeth Timmons [facility] Anesthesia General Description of Procedure Patient was seen in the preoperative holding area where the consent form was signed and the breast were marked for an inferior pedicle Lewis pattern reduction. Patient was taken back to the operating room and placed on the table in the supine position. Time-out was performed with Anesthesia, surgeons, and staff agreeing on patient's name, site, and surgery to be performed. SCDs were placed on the lower extremities and inflated. Antibiotics were given IV. After general anesthesia was administered the breasts were prepped and draped in the usual sterile fashion. Attention was 1st taken to the right breast where a saline moistened lap pad and Orquidea clamp was used to create a breast tourniquet. I proceeded with de epithelializing a 9 cm wide inferior pedicle with 10 blade scalpel. I made my other preoperative planned skin incisions through skin and dermis with scalpel blade. Bovie cautery was then used to complete these incisions. I then proceeded with assisting Dr. Steve in performing the right sentinel lymph node biopsy and right breast mastectomy aiding in retraction and hemostasis as needed. this is dictated separately. After completion of the mastectomy I irrigated with antibiotic irrigation and hemostasis with Bovie cautery. I proceeded with suturing in a piece of large, contoured, AlloDerm along the inframammary fold and anterior axillary line with 2-0 Vicryl suture. A NatMoveae 133 S-MX-13-T tissue grievance coordinator serial [id number] was prepped and sutured into the right breast pocket with 2-0 Vicryl sutures using the provided tabs on the grievance coordinator. I placed a 10 Finnish drain along the inframammary fold between the AlloDerm and inferior pedicle. An on Q pump catheter was placed going along the superior aspect of the right breast cavity. I irrigated with antibiotic irrigation. The skin flaps and inferior pedicle appeared viable with punctate bleeding at the edges. I proceeded with securing the superior skin flaps to the inframammary fold with 2-0 Prolene suture at the T-junction. 3-0 Vicryl was used for dermal closure. For the vertical limb some of the sutures were also used to secure the inferior pedicle. Initial fill of 200 cc was performed which appeared reasonable without placing undue stress on the skin flaps which remained viable with good cap refill. There was good position to the tissue grievance coordinator. 4-0 Monocryl was used for subcuticular closure. The drain was hooked to bulb suction. Initial loading bolus dose of 10 cc of 1% lidocaine with epinephrine and 0.5% Marcaine plain was injected via the on Q catheter. Next we changed our gloves and instruments and took our attention to the left breast where same procedure was performed. Saline moistened lap pad and Orquidea clamps were used to create a breast tourniquet.I proceeded with de epithelializing a 9 cm wide inferior pedicle with 10 blade scalpel. I made my other preoperative planned skin incisions through skin and dermis with scalpel. Bovie cautery was then used to complete these incisions. I then proceeded with assisting Dr. Steve in performing the left mastectomy aiding in retraction and hemostasis as needed. this is dictated separately. After completion of the mastectomy I irrigated with antibiotic irrigation and hemostasis with Bovie cautery. I proceeded with suturing in a piece of large, contoured, AlloDerm along the inframammary fold and anterior axillary line with 2-0 Vicryl suture. A NatMoveae 133 S-MX-13-T tissue grievance coordinator serial [id number] was prepped and sutured into the left breast pocket with 2-0 Vicryl sutures using the provided tabs on the grievance coordinator. I placed a 10 Finnish drain along the inframammary fold between the AlloDerm and inferior pedicle. An on Q pump catheter was placed going along the superior aspect of the left breast cavity. I irrigated with antibiotic irrigation. The skin flaps and inferior pedicle appeared viable with punctate bleeding at the edges. I proceeded with securing the superior skin flaps to the inframammary fold with 2-0 Prolene suture at the T-junction. 3-0 Vicryl was used for dermal closure. For the vertical limb some of the sutures were also used to secure the inferior pedicle. Initial fill of 200 cc was performed which appeared reasonable without placing undue stress on the skin flaps which remained viable with good cap refill. There was good position to the tissue grievance coordinator And reasonable symmetry to the reconstructed right breast. 4-0 Monocryl was used for subcuticular closure. The drain was hooked to bulb suction. Initial loading bolus dose of 10 cc of 1% lidocaine with epinephrine and 0.5% Marcaine plain was injected via the on Q catheter. a dressing of Mastisol, Steri-Strips, 4 x 4, tegaderm, ABDs and a surgical bra was then applied. The drains were hooked to bulb suction. The on Q catheters were hooked up to the on Q pump. The patient was awakened from anesthesia and transferred to the recovery room in stable condition. Complications: None estimated blood loss: 5 cc additional for my portion of the procedure disposition: Patient tolerated the procedure well and will stay overnight for observation with plan for discharge in the morning. Elizabeth Timmons PA-C was essential for positioning, retraction, closure and dressing placement [facility] Billing Surgery - Charge Forward: Surgery Billing ([id number],59 [id number],59, [id number],80,59 [id number],80,59 same for elizabeth adding and removing mod 80)
--- NOTE | 2025-06-12 07:02 | WPDANESEPPF ---
Anes - Initial Pre Proc Eval Procedure: Operation Date: 06/12/25 07:30 Proposed Procedures p Right Total Mastectomy, Prophylactic Left Total Mastectomy, Possible Right [place] Lymph Node Biopsy, Possible Right Axillary Dissection, Injection Lymphoseek and Methylene Blue for Dual Tracing,for - Iraida Steve MD s Bilateral Baltazar Pattern Mastopexy with Tissue Dog Control Officer and Acellular Dermal Matrix Placement - Tenzin Walton MD Date/Time: 06/12/25 07:02 Surgeon: Iraida Steve MD Pre Op Diagnosis: malignant neoplasm right breast Patient Data Age: 45 Gender: F Height: 1.68 m Weight: 88.6 kg Allergies Allergy/AdvReac Type Severity Reaction Status Date / Time No Known Allergies Allergy Verified 06/12/25 06:58 Home Medications ?Medication ?Instructions ?Recorded ?Confirmed ?Type ondansetron 8 mg disintegrating 8 mg PO Q8H PRN nausea and vomiting 01/31/25 06/06/25 History tablet amitriptyline 25 mg tablet 25 mg PO QHS #90 tabs 02/25/25 06/12/25 Rx desvenlafaxine succinate 25 mg 25 mg PO DAILY #90 tabs 04/25/25 06/12/25 Rx tablet,extended release 24 hr Patient hx anesthesia problems: post op nausea/vomiting Family hx anesthesia problems: none Results Review: All pre-operative results and documents have been reviewed as part of the pre-operative evaluation. [facility] Past Medical History Medical History CHEK2 gene mutation positive Increased risk for colorectal, renal, thyroid and brain cancer Obesity Depression Migraine Seasonal allergies Surgical History Surgical History History of cholecystectomy [place] teeth removed History of section S/P partial hysterectomy S/P knee surgery Family History Family History Other Carcinoma of colon Hypertension Social History Social History Social History: 08/13/24 very confident with medical forms. 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 Informed Consent: The patient's anesthetic plan and its attendant risks and benefits were discussed with the patient/family/POA. Questions were solicited and answers provided to the satisfaction of the patient/family/POA.
--- NOTE | 2025-06-12 07:03 | WPDHPUPDATE1 ---
History and Physical Update Update Date/Time: 06/12/25 07:03 - Right total mastectomy, prophylactic left total mastectomy, right targeted axillary dissection with removal of biopsy clip node in addition to 2 or 3 additional sentinel lymph nodes, injection of lymphoseek and methyelene blue, and immediate reconstruction by Plastic Surgery. History and Physical has been reviewed, including an updated exam of the patient. There are NO changes in the patient's condition. Risks, benefits, and alternatives have been discussed and questions answered. Patient agrees to proceed with procedure.
[2025-06-12] MEDS: SCOPOLAMINE 1 MG PATCH 1 PATCH TRANSDERM (07:12)
[2025-06-12] MEDS: ceFAZolin 2 GM in SODIUM CHLORIDE 0.9% IV 50 ML 100 ML IVPB (07:36)
[2025-06-12] MEDS: NACL 0.9% IRRIG POUR BOTTLE 1,000 ML, GENTAMICIN SULFATE INJ 160 MG, ceFAZolin 2 GM IRRIGATION (08:27)
--- NOTE | 2025-06-12 08:44 | S_PTH ---
PATIENT: RameshNovember LOC: [facility] U#:[id number] AGE/SX: 45/F ROOM: RE06/12/[address]: Iraida Steve MD : 1980 BED: DIS: 06/13/2025 SPEC #: [id number] RECD: 06/12/25 09:06 STATUS: MARIA ISABEL REQ #: [id number] DEMETRIO: 06/12/25 08:[address]: Iraida Steve DEPT: [facility] Surgical RECD BY: Bernie Vegas ENTERED: 06/12/25 09:08 SP TYPE: Surgical OTHR DR: Rosalva Domingo PALeeanneC Tissues: A - [place] LN Breast B - Breast Tissue C - Breast Tissue D - Breast Mastectomy E - Breast Mastectomy Procedures: Hematoxylin and Eosin Stain Gross and Microscopic Level 4 Gross and Microscopic Level 5
--- NOTE | 2025-06-12 09:17 | SUR.OPER ---
Right Breast Axillary Contents and Right Breast Axillary Contents #2 given to SHE Ascencio at 0910; both specimens given to Bernie in pathology at 09
--- NOTE | 2025-06-12 09:42 | SUR.OPER ---
Right breast given to PCT Sonu at 0934; Sonu handed specimen to Tunde in pathology at 0944
--- NOTE | 2025-06-12 10:20 | W.PM.PROC2 ---
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 Right total mastectomy. 2. Prophylactic left total mastectomy. 3. Targeted right axillary dissection with removal of biopsy clip node in addition to 2 sentinel lymph nodes Surgeon Iraida Steve MD Sourcing Coordinator Elizabeth Timmons PA-C Anesthesia General Description of Procedure Patient was identified in the preoperative holding area and I performed a injection of Lymphoseek and methylene blue to the periareolar area in the subdermal plane for dual tracing sentinel lymph node mapping. Patient was then brought to the operating room suite and laid supine in the OR table. Sequential compression devices were applied. General endotracheal anesthesia was induced without difficulty. Bilateral chest areas and right axilla were prepped and draped in a sterile fashion. Dr. Walton made the Baltazar pattern incisions as well as the de epithelialization of the pedicle of the nipple areola complex, please refer to his operative note for further details. I then proceeded to elevate the mastectomy flaps. Dissection was carried down through the subcutaneous tissue through the thin areolar plane between the subcutaneous in the breast tissue superiorly to the inferior border of the clavicle. once I had fully elevated the superior mastectomy flap, the Neoprobe was then used to scan the axilla and the clavipectoral fascia was incised and opened. I was able to identify a node that was hot but not blue, and this was carefully excised. The sentinel lymph node initial count ex vivo was 1815, and this was placed in the Faxitron to see if the clip was within the node. The Faxitron images confirmed that this was also the clipped node, and the original positive node that was biopsy prior to neoadjuvant chemotherapy. This node was then sent to pathology as a fresh specimen. The Neoprobe was then again used to scan the axilla and I was able to identify 2 additional lymph nodes that had at least 10% of the count of the original sentinel lymph node 1. Both additional nodes were excised using the LigaSure device and sent to pathology as a fresh specimen. I again scanned the axilla with the Neoprobe and no additional radio activity was noted at this time, that met the 10% criteria. The axillary region was irrigated with saline hemostasis was assured. The clavipectoral fascia was closed with a running 3-0 Vicryl. Attention was then turned to the right breast. I proceeded with my dissection on the mastectomy specimen medially to the lateral part of the sternal border, laterally to the latissimus dorsi, and inferior to the inframammary fold down to the muscle. The breast tissue along with the pectoralis fascia was then carefully dissected off the pectoralis muscle posteriorly. Once the entire breast was excised, it was also oriented with a short stitch superior and a long stitch lateral. The mastectomy specimen was then sent to pathology as a fresh specimen. Attention was then turned to the left prophylactic side. Dr. Walton had already previously made the Baltazar pattern incisions as well as the de epithelialization of the pedicle for the nipple areola complex. I proceeded to dissect down through the subcutaneous tissue into the breast tissue. Dissection was then taking place in the thin areolar tissue between the subcutaneous in the breast tissue superiorly to the inferior border of the clavicle, medial to the lateral part of the sternal border, laterally to the latissimus dorsi, and inferior to the inframammary fold down to the muscle. The breast tissue along with the pectoralis fascia was then carefully dissected off the pectoralis muscle posteriorly. Once the entire breast was excised, it was oriented with a short stitch superior and a long stitch lateral as well as the subareolar region was marked with a short long stitch. The specimen was sent to pathology as a permanent specimen. The cavity was irrigated and hemostasis was assured. The case was then turned over to Dr. Walton for the reconstruction part, please refer to his operative note for further details. All needles, instruments, and sponge counts were correct as reported by the operating room staff. Patient tolerated the procedure well with no immediate complications. Elizabeth Timmons PA-C was present and scrubbed for the entirety of procedure and required for retraction and patient positioning throughout the entire case. Estimated Blood Loss 50 Drains Yes Pathology Yes Complications No immediate complications Condition Stable Disposition PACU [facility] Billing Surgery - Charge Forward: Surgery Billing (CPT 25053 - L, [id number] - 59 R, [id number] - 59, [id number] - 59)
[2025-06-12] MEDS: BUPivacaine HCL 0.5% 10 ML AMP 20 ML INFILTRATE (10:53)
[2025-06-12] MEDS: fentaNYL CITRATE INJ (*CRX) 100 MCG/2 ML VIAL 25 MCG IV PUSH ×8 (11:25→12:30)
--- NOTE | 2025-06-12 13:36 | OBPPTRN ---
Patient transferred to post room #285 via stretcher. Support person present. Oriented to unit, room, information board, surgical admission packet. Patient verbalizes understanding.
[2025-06-12] MEDS: HYDROmorphone HCL INJ (*CRX) 1 MG/ML SYR IV PUSH ×3 (14:04→18:40)
[2025-06-12] MEDS: ONDANSETRON INJ 4 MG/2 ML VIAL IV PUSH (17:49)
[2025-06-12] MEDS: PROMETHAZINE HCL 25 MG/ML AMPUL 12.5 MG IV PUSH (19:19)
[2025-06-12] MEDS: AMITRIPTYLINE HCL 25 MG TABLET PO (20:35)
[2025-06-12] MEDS: HYDROcodone/acetaminophen (*CRX) 10-325 MG TABLET 1 TAB PO ×2 (20:35→23:25)
[2025-06-12] MEDS: CEPHALEXIN SUSPENSION 500 MG/10 ML UDBTL PO (22:00)
[2025-06-13 03:45] VITALS: BP 98/64; PULSE 100; RESP 16; TEMP 36.4; O2SAT 99
[2025-06-13] MEDS: HYDROcodone/acetaminophen (*CRX) 10-325 MG TABLET 1 TAB PO ×2 (03:45→07:44)
[2025-06-13 07:50] VITALS: BP 101/58; PULSE 100; RESP 16; TEMP 36.6; O2SAT 94
[2025-06-13] MEDS: DOCUSATE SODIUM 100 MG CAPSULE PO (09:51)
[2025-06-13] MEDS: CEPHALEXIN SUSPENSION 500 MG/10 ML UDBTL PO (09:54)
--- NOTE | 2025-06-13 10:56 | WPDANESPN ---
Anes - Prog Note Post-Op Date/Time: 06/13/25 10:56 Cardiovascular status: normal Respiratory status: normal Airway patency: baseline Mental status: baseline Post-Op hydration status: normal Vital Signs: Last Vital Signs Temp 36.6 C 06/13/25 07:50 Pulse 100 06/13/25 07:50 Resp 16 06/13/25 07:50 BP 101/58 L 06/13/25 07:50 Pulse Ox 94 06/13/25 07:50 O2 Del Method Room Air 06/13/25 07:45 O2 Flow Rate 2 06/12/25 12:41 Pain Score (VAS): 10/08 I/O: Intake & Output 06/12/25 06/13/25 06/13/25 23:59 07:59 15:59 Intake Total 500 500 Output Total 910 890 Balance -410 -390 Post-procedural complaints: none Patient Feedback: Patient satisfied with anesthetic care. Other Findings: Generalized itching, offered Benadryl but declined
--- NOTE | 2025-06-13 13:03 | P.DS_ITS ---
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 DS: Summary Hospital Course Hospital Course: Patient was admitted postop for observation. Overnight she had some nausea that has now improved. Patient is tolerating regular diet with no further nausea and no emesis. Her pain is well controlled on p.o. pain medicine. She is ambulating independent. She was deemed ready for discharge on postop day 1. Time spent discussing smoking cessation with patient: 3 to 10 minutes Time Spent with Patient Time attestation: Total time spent providing and/or coordinating discharge services: Exam Const: General: comfortable and no acute distress Eyes: General: appearance normal, both eyes and all related structures Resp: Effort & Inspection: normal respiratory effort Cardio: Rate: regular rate GI: GI Palp: Yes Soft to palpation Skin: Other: bilateral mastectomy dressings are clean dry and intact there is a very small dried serous sanguinous spotting at the inferior aspect of the left side, with no active drainage. No significant ecchymosis noted. No fluctuance, erythema induration. Drains in place with serous sanguinous fluid. On Q catheter is intact. Neuro: Sensory Exam: normal sensation Extrem: General: normal to inspection Psych: Mental Status: mental status grossly normal DS: Data Data Completed and Pending Pending studies at discharge: Pending at discharge 06/12/25 08:44 Surgical [PTH] Routine Surgical [PTH] Routine Surgical [PTH] Routine Surgical [PTH] Routine Discharge Plan Discharge Patient Disposition: Home Discharge Instructions: Post-Operative Instructions Breast Reconstruction Dressing Instructions: Keep bra and surgical dressings clean, dry, and in place at all times. Shower Instructions: Keep surgical dressings, incisions, and drains, dry at all times. You may shower or sponge bathe from waist down. May sponge bathe underarms and upper extremities. Activity: Avoid strenuous activity and heavy lifting/pushing/pulling until seen in office for follow up appointment. Avoid overhead arm movements. Walking is encouraged to help with bowel movement as well as help prevent blood clots in the lower extremities. Deep breathing exercises are encouraged to help prevent lung infections. Drain Care: Keep drains on suction at all times. Strip drain tubing at least every 12 hours. Empty drains every 12 hours and record output separately for each side. Please bring output record to your first follow up visit in office. Medication: May take Advil or Tylenol for pain. May take prescription pain medication as prescribed if not controlled by Advil/Tylenol. Prescription pain medication may cause constipation. Take antibiotics as prescribed. Follow up: Please follow up with Plastic Surgery in office in 3-5 days. Follow up with Breast Surgery in 2 weeks. Please call the office for any questions or concerns, including uncontrolled pain, fever/chills, bleeding, redness, or unexpected changes in sensation. If after normal business hours, please request the light rail transit operator page the surgeon or PA. For emergent symptoms, please call 911 or seek assistance at the nearest [facility] Room. Patient Instructions: Mastectomy (DC) Patient Language: Bulgarian Stand Alone Forms: General Discharge Instructions Discharge Medications: New cephalexin 500 mg capsule 500 mg PO Q12H Qty: 14 0RF hydrocodone-acetaminophen 10-325 mg tablet 1 tablet PO Q6H PRN (Reason: pain) Qty: 30 0RF Continued ondansetron 8 mg tablet,disintegrating 8 mg PO Q8H PRN (Reason: nausea and vomiting) Patient Comments: needed only Rx Instructions: 1st dose 1-2 hr before radiation amitriptyline 25 mg tablet 25 mg PO QHS Qty: 90 1RF Patient Comments: ..... desvenlafaxine succinate 25 mg tablet extended release 24 hr 25 mg PO DAILY Qty: 90 0RF Patient Comments: .
== END 2025-06-13 12:02 | disposition home or self-care (01) ==
LOC: ANHSURGERY 11:19 → ANHOB2 16:25
PROVIDERS: Plastic Surgery; PCP Physician Assistant Medical; Visit Provider Surgery
PROC: (CPT 19303; principal; 2025-06-12 07:30)
PROC: (CPT 19357; 2025-06-12 07:30)
DX: C50.811 Malignant neoplasm of overlapping sites of right female breast (principal); F32.A Depression, unspecified; E66.9 Obesity, unspecified; Z68.32 Body mass index [BMI] 32.0-32.9, adult; Z98.890 Other specified postprocedural states; Z90.49 Acquired absence of other specified parts of digestive tract; Z15.09 Genetic susceptibility to other malignant neoplasm; Z80.0 Family history of malignant neoplasm of digestive organs
CPT/HCPCS: 19303; 38525; 19357; 15777 ×2; 19316; 38792; 76098; 88305; 88307; 99199; J0690; A9270; A9520; C1789; J1100; J1171; J1580; J2250; J2270; J2371; J2405; J2550; J2704; J3010; J7030; J7120; Q4116; Q9968

== ENCOUNTER 2025-08-07 10:42 | Outpatient (CLI) | payer BC, SELFPAY ==
--- NOTE | ~2025-08-07 | XR_ITS ---
EXAM/PROCEDURE: XR fl port a cath w contrast HISTORY: breast cancer metastasized to lymph node COMPARISON: None available. TECHNIQUE: Fluoroscopic evaluation of central catheter patency. Fluoroscopy time: 1.08 seconds DAP: 2.2073 Portillo per square centimeter FINDINGS: A left internal jugular Port-A-Cath present with tip in close proximity to the brachiocephalic confluence probably just above the superior most margin of the SVC. Noncontrast injection contrast flow into the SVC is identified. IMPRESSION: Patent left internal jugular Port-A-Cath. Reviewed, dictated and finalized at location A. RAISING DIRECTOR
== END 2025-08-07 10:43 | disposition home or self-care (01) ==
PROVIDERS: PCP Physician Assistant Medical; Visit Provider Internal Medicine Hematology & Oncology
DX: C50.911 Malignant neoplasm of unspecified site of right female breast (principal); C77.3 Secondary and unspecified malignant neoplasm of axilla and upper limb lymph nodes
CPT/HCPCS: 36598